=== PATIENT | female | born 1955 | race Caucasian/White ===

== ENCOUNTER → 2017-02-04 | Outpatient (CLI) | payer OTHER ==
--- NOTE | 2017-02-05 16:12 | CR ---
EXAM DATE: 02/04/17 PATIENT'S AGE: 61 Patient: NOLBERTO VELASCO Facility: [place], [place] Site . Site : 1955 Study: XRay Chest [id number] 3:13:56 PM Ordering Physician: Vashti Marks Final Report: INDICATION: Cough TECHNIQUE: Chest 2 views. COMPARISON: June 03, 2015 FINDINGS: Cardiovascular and mediastinum: Heart size and vasculature are normal in caliber and appearance. Mediastinum is within normal limits. Lungs and pleural spaces: Lungs are clear. No sign of infiltrate or mass. No sign of pleural effusion. No pneumothorax. Bones and soft tissues: No significant findings. IMPRESSION: No sign of acute disease. Dictated by Kaylin Sanchez MD @ Feb 04 2017 7:37PM (Electronic Signature) Report Signed by Proxy. [facility]ITALVarghese
== END ==
LOC: MW.CHFP 14:02
PROVIDERS: ATTEND Nurse Practitioner Family
DX: R05 Cough (principal); R11.10 Vomiting, unspecified; E10.9 Type 1 diabetes mellitus without complications; R82.99 Other abnormal findings in urine; J18.9 Pneumonia, unspecified organism; A49.9 Bacterial infection, unspecified
CPT/HCPCS: 36415; 71020; 71020-26; 80048; 81001; 83036; 83605; 85025; 87040

== ENCOUNTER 2017-07-12 10:28 | Observation (INO) | payer OTHER ==
--- NOTE | 2017-07-12 10:50 | EDM.PDOC ---
ED HPI GENERAL MEDICAL PROBLEM - General Chief Complaint: General Stated Complaint: SWELLING,LOW BLOOD SUGAR Time Seen by Provider: 07/12/17 10:45 Source of Information: Reports: Patient, Family History Limitations: Reports: No Limitations - History of Present Illness INITIAL COMMENTS - FREE TEXT/NARRATIVE: HISTORY AND PHYSICAL: []61-year-old female presenting with some weakness shortness of breath her sugars have been up and down. For the last month or 2 she has been experiencing these symptoms. She states she is having vision changes for the last month. She is short of breath on exertion. History of Present Illness: [Patient is known diabetic on Lantus insulin she has hyperlipidemia but has not been taking any medication. For the last provider that she saw was 1 year ago. Selina Kingston NP. Her son brings her to ER. Patient states that she was helping her daughter move last week and fell after missing a single step. Then states that occasionally her left leg wants to drag. ] Surgical history includes and lithotripsy. Patient generally wears glasses and states that her vision has been worsening Denies any fever or chills denies any hematemesis stools denies any dysuria She has had fractures osteoarthritis Reports migraine headaches in the past Review of Systems: As per history of present illness and below otherwise all systems reviewed and negative. Past medical history: As per history of present illness and as reviewed below otherwise noncontributory. Patient denies any difficulty swallowing denies any chest pain she does have shortness of breath on exertion Denies any gastrointestinal symptoms, complains of weakness Does have history of depression reports diabetes mellitus type 1 reports chickenpox/shingles Surgical history: As per history of present illness and as reviewed below otherwise noncontributory. and lithotripsy Social history: No reported history of drug or alcohol abuse. Patient is smoker for 45 years Family history: As per history of present illness and as reviewed below otherwise noncontributory. Lung cancer Heart disease High cholesterol Diseases and stones COPD Physical exam: Patient is alert but does take some time with speaking and thinking of what she is going to say. Answers are appropriate. She is not short of breath with her answers in full sentences . All her symptoms she has have been present for 1-2 months. HEENT: Atraumatic, normocehpalic, pupils reactive, negative for conjunctival pallor or scleral icterus, mucous membranes moist, throat clear, neck supple, nontender, trachea midline. Voice is very raspy . Lungs: Clear to auscultation, breath sounds equal bilaterally, chest non- tender. Heart: S1S2, regular, negative for clicks, rubs, or JVD. Abdomen: Soft, nondistended, nontender. Negative for masses or hepatossplenmegaly. Negative for costovertebral tenderness. Pelvis: Stable nontender. Genitourinary: Deferred. Rectal: Deferred Extremities: Atraumatic, negative for cords or calf pain. 1+ edema noted bilateral ankles extending up shins. Weakness noted with hand grasp with left being slightly less than the right. Weakness to legs with elevating from a laying down position with the left side being weaker than the right side. Neurovascular unremarkable. Neuro: Awake, alert, oriented. Cranial nerves II through XII unremarkable. Cerebellum unremarkable. Motor and sensory unremarkable throughout. Exam nonfocal. Have discussed with the patient and her family at bedside my concerns, and the rest that we have back at this time. Her hemoglobin A1c being 11.4, her sugars on admission over 400. Head CT does not show any bleed fracture or abnormality. She does have some tortuous thoracic aorta moderately calcified mild cardiac enlargement minimal nodularity in the right costophrenic angle this is new and nonspecific there is some new linear atelectasis or scarring to the right lung base lungs otherwise are clear without any infiltrate and tiny nodular density was projected over the left fourth rib which could be an area of sclerosis within this rib appears stable on the x-ray. Discussed with Dr. Mohamud patients weakness. Shows of breath on exertion. Uncontrolled diabetes. He is agreeable to refer for observation. Diagnostics: [Bedside blood sugar, EKG, CBC CMP troponin amylase lipase PT/INR Hgb A1c] Therapeutics: [3 units regular insulin subcutaneous repeat X1. 2 units regular insulin subcutaneous 500 bolus of normal saline then at 125 per hour] Impression: Weakness [Uncontrolled diabetes mellitus type 1 Shortness breath on exertion] Plan: [Refer for observation] Definitive disposition and diagnosis as appropriate pending reevaluation and review of above. head Pain Score (Numeric/FACES): 7 - Related Data Allergies Allergy/AdvReac Type Severity Reaction Status Date / Time No Known Allergies Allergy Verified 07/12/17 10:36 Home Meds: Home Meds Insulin Lispro [HumaLOG] 1 unit SQ ACBED 10/24/14 [History] Insulin Glarg,Human.Rec.Analog [LantUS Solostar] 21 units SUBCUT DAILY 07/12/17 [History] Past Medical History Other HEENT History: uses glasses Other Genitourinary History: Social & Family History - Tobacco Use Smoking Status *Q: Current Every Day Smoker Years of Tobacco use: 45 Used Tobacco, but Quit: No Second Hand Smoke Exposure: Yes - Alcohol Use Days Per Week of Alcohol Use: 0 - Recreational Drug Use Recreational Drug Use: No ED ROS GENERAL - Review of Systems Review Of Systems: ROS reveals no pertinent complaints other than HPI. ED EXAM, GENERAL - Physical Exam Exam: See Below (See dictation) Course - Vital Signs Last Recorded V/S: Last Vital Signs Temp 36.4 C 07/12/17 10:28 Pulse 101 H 07/12/17 10:28 Resp 18 07/12/17 10:28 BP 175/104 H 07/12/17 10:28 Pulse Ox 98 07/12/17 10:28 - Orders/Labs/Meds Orders: Active Orders 24 hr Category Date Time Status Cardiac Monitoring [RC] . DIRECTED Care 07/12/17 10:50 Active EKG Documentation Completion [RC] STAT Care 07/12/17 10:51 Active Oxygen Therapy, ED [RC] ASDIRECTED Care 07/12/17 10:50 Active Chest 1V Frontal [CR] Stat Exams 07/12/17 10:51 Taken Head wo Cont [CT] Stat Exams 07/12/17 11:32 Taken CULTURE BLOOD [BC] Stat Lab 07/12/17 10:59 Received CULTURE BLOOD [BC] Stat Lab 07/12/17 11:18 Results HEPATITIS C AB [REF] Stat Lab 07/12/17 10:59 Received Sodium Chloride 0.9% [Saline Flush] Med 07/12/17 10:51 Active 10 ml FLUSH ASDIRECTED PRN Sodium Chloride 0.9% [Saline Flush] Med 07/12/17 10:51 Active 2.5 ml FLUSH ASDIRECTED PRN Blood Culture x2 Reflex Set [OM.PC] Stat Oth 07/12/17 10:51 Ordered Saline Lock Insert [OM.PC] Stat Oth 07/12/17 10:50 Ordered Medication Orders Sodium Chloride (Saline Flush) 10 ml FLUSH ASDIRECTED PRN PRN Reason: Keep Vein Open Sodium Chloride (Saline Flush) 2.5 ml FLUSH ASDIRECTED PRN PRN Reason: Keep Vein Open Labs: Laboratory Tests 07/12/17 07/12/17 07/12/17 Range/Units 10:49 10:59 10:59 WBC 9.66 (4.0-11.0) K/uL RBC 4.41 (4.30-5.90) M/uL Hgb 14.1 (12.0-16.0) g/dL Hct 41.2 (36.0-46.0) % MCV 93.4 (80.0-98.0) fL MCH 32.0 (27.0-32.0) pg MCHC 34.2 (31.0-37.0) g/dL RDW Std Deviation 47.3 (28.0-62.0) fl RDW Coeff of Nicolasa 14 (11.0-15.0) % Plt Count 338 (150-400) K/uL MPV 9.00 (7.40-12.00) fL Neut % (Auto) 76.2 (48.0-80.0) % Lymph % (Auto) 14.4 L (16.0-40.0) % Preston % (Auto) 7.0 (0.0-15.0) % Eos % (Auto) 1.3 (0.0-7.0) % Baso % (Auto) 1.1 (0.0-1.5) % Neut # (Auto) 7.4 H (1.4-5.7) K/uL Lymph # (Auto) 1.4 (0.6-2.4) K/uL Preston # (Auto) 0.7 (0.0-0.8) K/uL Eos # (Auto) 0.1 (0.0-0.7) K/uL Baso # (Auto) 0.1 (0.0-0.1) K/uL Nucleated RBC % 0.0 /100WBC Nucleated RBCs # 0 K/uL INR 0.98 (0.86-1.11) ABG pH (7.35-7.45) ABG pCO2 (35-45) mmHG ABG pO2 (75-100) mmHG ABG HCO3 (22-26) mEq/L ABG Total CO2 ABG Base Excess (-2.0-2.0) Sodium (136-146) mmol/L Potassium (3.5-5.1) mmol/L Chloride (98-110) mmol/L Carbon Dioxide (21-31) mmol/L BUN (6.0-23.0) mg/dL Creatinine (0.6-1.5) mg/dL Est Cr Clr Drug Dosing mL/min Estimated GFR (MDRD) ml/min Glucose (60-110) mg/dL POC Glucose 377 H (60-110) mg/dL Hemoglobin A1c (0.0-6.0) % Calcium (8.8-10.8) mg/dL Total Bilirubin (0.1-1.5) mg/dL AST (5-40) IU/L ALT (8-54) IU/L Alkaline Phosphatase (40-150) Troponin I (0.0-0.29) NG/ML Total Protein (6.0-8.0) g/dL Albumin (3.4-4.8) g/dL Globulin (2.0-3.5) g/dL Albumin/Globulin Ratio (1.3-2.8) Amylase (10-90) U/L Lipase (7-80) U/L TSH 3rd Generation (0.47-5.0) uIU/mL 07/12/17 07/12/17 07/12/17 Range/Units 10:59 10:59 10:59 WBC (4.0-11.0) K/uL RBC (4.30-5.90) M/uL Hgb (12.0-16.0) g/dL Hct (36.0-46.0) % MCV (80.0-98.0) fL MCH (27.0-32.0) pg MCHC (31.0-37.0) g/dL RDW Std Deviation (28.0-62.0) fl RDW Coeff of Nicolasa (11.0-15.0) % Plt Count (150-400) K/uL MPV (7.40-12.00) fL Neut % (Auto) (48.0-80.0) % Lymph % (Auto) (16.0-40.0) % Preston % (Auto) (0.0-15.0) % Eos % (Auto) (0.0-7.0) % Baso % (Auto) (0.0-1.5) % Neut # (Auto) (1.4-5.7) K/uL Lymph # (Auto) (0.6-2.4) K/uL Preston # (Auto) (0.0-0.8) K/uL Eos # (Auto) (0.0-0.7) K/uL Baso # (Auto) (0.0-0.1) K/uL Nucleated RBC % /100WBC Nucleated RBCs # K/uL INR (0.86-1.11) ABG pH (7.35-7.45) ABG pCO2 (35-45) mmHG ABG pO2 (75-100) mmHG ABG HCO3 (22-26) mEq/L ABG Total CO2 ABG Base Excess (-2.0-2.0) Sodium 136 (136-146) mmol/L Potassium 3.9 (3.5-5.1) mmol/L Chloride 102 (98-110) mmol/L Carbon Dioxide 24 (21-31) mmol/L BUN 20 (6.0-23.0) mg/dL Creatinine 1.3 (0.6-1.5) mg/dL Est Cr Clr Drug Dosing 38.88 mL/min Estimated GFR (MDRD) 41.4 ml/min Glucose 435 H (60-110) mg/dL POC Glucose (60-110) mg/dL Hemoglobin A1c 11.3 H (0.0-6.0) % Calcium 8.7 L (8.8-10.8) mg/dL Total Bilirubin 0.4 (0.1-1.5) mg/dL AST 17 (5-40) IU/L ALT 15 (8-54) IU/L Alkaline Phosphatase 103 (40-150) Troponin I < 0.10 (0.0-0.29) NG/ML Total Protein 6.0 (6.0-8.0) g/dL Albumin 2.4 L (3.4-4.8) g/dL Globulin 3.6 H (2.0-3.5) g/dL Albumin/Globulin Ratio 0.7 L (1.3-2.8) Amylase 46 (10-90) U/L Lipase 11 (7-80) U/L TSH 3rd Generation 2.15 (0.47-5.0) uIU/mL 07/12/17 07/12/17 07/12/17 Range/Units 12:06 12:56 13:15 WBC (4.0-11.0) K/uL RBC (4.30-5.90) M/uL Hgb (12.0-16.0) g/dL Hct (36.0-46.0) % MCV (80.0-98.0) fL MCH (27.0-32.0) pg MCHC (31.0-37.0) g/dL RDW Std Deviation (28.0-62.0) fl RDW Coeff of Nicolasa (11.0-15.0) % Plt Count (150-400) K/uL MPV (7.40-12.00) fL Neut % (Auto) (48.0-80.0) % Lymph % (Auto) (16.0-40.0) % Preston % (Auto) (0.0-15.0) % Eos % (Auto) (0.0-7.0) % Baso % (Auto) (0.0-1.5) % Neut # (Auto) (1.4-5.7) K/uL Lymph # (Auto) (0.6-2.4) K/uL Preston # (Auto) (0.0-0.8) K/uL Eos # (Auto) (0.0-0.7) K/uL Baso # (Auto) (0.0-0.1) K/uL Nucleated RBC % /100WBC Nucleated RBCs # K/uL INR (0.86-1.11) ABG pH 7.430 (7.35-7.45) ABG pCO2 39 (35-45) mmHG ABG pO2 67 L (75-100) mmHG ABG HCO3 26 (22-26) mEq/L ABG Total CO2 23.5 ABG Base Excess 1.7 (-2.0-2.0) Sodium (136-146) mmol/L Potassium (3.5-5.1) mmol/L Chloride (98-110) mmol/L Carbon Dioxide (21-31) mmol/L BUN (6.0-23.0) mg/dL Creatinine (0.6-1.5) mg/dL Est Cr Clr Drug Dosing mL/min Estimated GFR (MDRD) ml/min Glucose (60-110) mg/dL POC Glucose 313 H 287 H (60-110) mg/dL Hemoglobin A1c (0.0-6.0) % Calcium (8.8-10.8) mg/dL Total Bilirubin (0.1-1.5) mg/dL AST (5-40) IU/L ALT (8-54) IU/L Alkaline Phosphatase (40-150) Troponin I (0.0-0.29) NG/ML Total Protein (6.0-8.0) g/dL Albumin (3.4-4.8) g/dL Globulin (2.0-3.5) g/dL Albumin/Globulin Ratio (1.3-2.8) Amylase (10-90) U/L Lipase (7-80) U/L TSH 3rd Generation (0.47-5.0) uIU/mL Meds: Medications Generic Name Dose Route Start Last Admin Trade Name Freq PRN Reason Stop Dose Admin Sodium Chloride 10 ml 07/12/17 10:51 Saline Flush FLUSH ASDIRECTED PRN Keep Vein Open Sodium Chloride 2.5 ml 07/12/17 10:51 Saline Flush FLUSH ASDIRECTED PRN Keep Vein Open Discontinued Medications Generic Name Dose Route Start Last Admin Trade Name Freq PRN Reason Stop Dose Admin Sodium Chloride 1,000 mls @ 999 mls/hr 07/12/17 10:51 07/12/17 11:14 Normal Saline IV 07/12/17 11:51 999 mls/hr STAT ONE Administration Insulin Human Regular 5 unit 07/12/17 11:03 Novolin R SUBCUT 07/12/17 11:04 ONETIME ONE Protocol Insulin Human Regular 3 unit 07/12/17 11:07 07/12/17 11:28 Novolin R SUBCUT 07/12/17 11:08 3 unit ONETIME ONE Administration Protocol Insulin Human Regular 3 unit 07/12/17 12:07 Novolin R SUBCUT 07/12/17 12:08 ONETIME ONE Protocol Insulin Human Regular 3 unit 07/12/17 13:22 Novolin R SUBCUT 07/12/17 13:23 ONETIME ONE Protocol Departure - Departure Time of Disposition: 14:00 Disposition: Home, Self-Care 01 Condition: Good Clinical Impression: Weakness generalized - Discharge Information Referrals: Selina Kingston NP [Primary Care Provider] - Forms: ED Department Discharge - My Orders Last 24 Hours: My Active Orders 07/12/17 10:50 Cardiac Monitoring [RC] . DIRECTED Oxygen Therapy, ED [RC] ASDIRECTED Saline Lock Insert [OM.PC] Stat 07/12/17 10:51 EKG Documentation Completion [RC] STAT Chest 1V Frontal [CR] Stat Sodium Chloride 0.9% [Saline Flush] 10 ml FLUSH ASDIRECTED PRN Sodium Chloride 0.9% [Saline Flush] 2.5 ml FLUSH ASDIRECTED PRN Blood Culture x2 Reflex Set [OM.PC] Stat 07/12/17 10:59 CULTURE BLOOD [BC] Stat HEPATITIS C AB [REF] Stat 07/12/17 11:18 CULTURE BLOOD [BC] Stat 07/12/17 11:32 Head wo Cont [CT] Stat - Assessment/Plan Last 24 Hours: My Active Orders 07/12/17 10:50 Cardiac Monitoring [RC] . DIRECTED Oxygen Therapy, ED [RC] ASDIRECTED Saline Lock Insert [OM.PC] Stat 07/12/17 10:51 EKG Documentation Completion [RC] STAT Chest 1V Frontal [CR] Stat Sodium Chloride 0.9% [Saline Flush] 10 ml FLUSH ASDIRECTED PRN Sodium Chloride 0.9% [Saline Flush] 2.5 ml FLUSH ASDIRECTED PRN Blood Culture x2 Reflex Set [OM.PC] Stat 07/12/17 10:59 CULTURE BLOOD [BC] Stat HEPATITIS C AB [REF] Stat 07/12/17 11:18 CULTURE BLOOD [BC] Stat 07/12/17 11:32 Head wo Cont [CT] Stat
[2017-07-12] MEDS ORDERED: Sodium Chloride 0.9% 2.5 ML Syringe FLUSH PRN (10:51)
[2017-07-12] MEDS ORDERED: Sodium Chloride 0.9% 10 ML Syringe FLUSH PRN (10:51)
[2017-07-12] MEDS ORDERED: Sodium Chloride 0.9% 1,000 ML IV ONE (10:51)
[2017-07-12] MEDS ORDERED: Insulin Regular, Human 100 Units/ML 10 ML Vial SUBCUT ONE ×4 (11:03→13:22)
[2017-07-12] MEDS ORDERED: FLU Vacc QS 2017-18 (6mos UP)/PF 60 MCG/0.5 ML Syringe IM ONE (15:45)
[2017-07-12] MEDS ORDERED: Albuterol/Ipratropium 3.0-0.5 MG/3 ML Neb Soln NEB PRN (16:05)
[2017-07-12] MEDS ORDERED: Ondansetron 4 MG/2 ML SDV IVPUSH PRN (16:05)
[2017-07-12] MEDS ORDERED: 50% Dextrose in Water 50 ML Syringe IVPUSH ONE (16:11)
--- NOTE | 2017-07-12 16:25 | CR ---
EXAM DATE: 07/12/17 PATIENT'S AGE: 61 Patient: NOLBERTO VELASCO Facility: [place], [place] Site . Site : 1955 Study: XRay Chest [id number]/[id number] 11:19:20 AM Ordering Physician: Doctor Kelley Final Report: INDICATION: Pain. Shortness of breath. Technique: AP portable chest x-ray. Comparison: Chest x-ray 02/04/2017. Findings: Tortuous thoracic aorta which is moderately calcified. Mild cardiac enlargement. Minimal nodularity in the right costophrenic angle new and nonspecific. New linear atelectasis or scarring right lung base. Lungs otherwise clear without infiltrate. Tiny nodular density projected over the left 4th rib could be an area of sclerosis within this rib and is stable. Remainder negative without acute disease in chest. Dictated by Louie Lopez MD @ Jul 12 2017 11:26AM (Electronic Signature) Report Signed by Proxy. SHERON
--- NOTE | 2017-07-12 16:26 | CT ---
EXAM DATE: 07/12/17 PATIENT'S AGE: 61 Patient: NOLBERTO VELASCO Facility: [place], [place] Site . Site : 1955 Study: CT Head [id number]/2/2017 12:58:42 PM Ordering Physician: Doctor Kelley Final Report: INDICATION: right leg tingling drags and doesn`t work fell today because of it CT HEAD WITHOUT CONTRAST TECHNIQUE: Multiple axial CT images were performed through the head without intravenous contrast administration. COMPARISON: 06/04/2015. FINDINGS: No acute intracranial hemorrhage is identified. No extra-axial collections are evident and there is no mass effect or midline shift. Ventricles are normal in size and configuration. Brain parenchyma appears normal with unremarkable stallworth-white differentiation. Osseous structures are within normal limits and no fractures are seen. Included portions of the paranasal sinuses and mastoid air cells are normally aerated. IMPRESSION: Normal non-contrast head CT. BARBY LOTT MD [employer] Dictated by: Luis Felipe Lott MD @ 07/12/2017 13:03:51 (Electronic Signature) Report Signed by Proxy. [facility]
[2017-07-12] MEDS ORDERED: Furosemide 40 MG/4 ML VIAL IVPUSH ONE (16:53)
[2017-07-12] MEDS ORDERED: Magnesium Sulfate/Water 4 GM in Premix Bag 1 BAG IV ONE (16:55)
--- NOTE | 2017-07-12 17:29 | PCM.HP ---
H&P History of Present Illness - General Date of Service: 07/12/17 Admit Problem/Dx: Admission Diagnosis/Problem Admission Diagnosis/Problem Weakness Source of Information: Patient, Family History Limitations: Reports: No Limitations - History of Present Illness Initial Comments - Free Text/Narative: This 61 year old female with pmh of DM type 1, HTN, and tobacco use presented to the ED with concerns of worsening generalized weakness, labile blood sugars, and edema to lower legs. She reports this weakness has been around for approximately 2 months and more like generali fatigu. She reports a fall this weekend and her son urged her to be evaluated. She doesn't report significant weakness to one side or not, but family thinks she feels weaker to left, this again as been present for 1-2 months. She has noticed more swelling to her lower legs, and cut back on salt intake and it has improved but she continues to feel very tight to lower legs and the swelling extends to hips and butt. She also reports shortness of breath that has worsened and is especially noticeable upon exertion. She reports she is able to lie flat to sleep. She denies CAD, did have an angiogram many years ago in [place], but denies stents and no dyslipidemia. She has smoked for 45+ years. She has not followed with PCP, in awhile. The last provider she saw was Selina Kingston NP. She reports her BS are labile, reporting highs in 200-300s and lows in the 20-30s. She isn't great at checking her BS but knows when it is low. She takes Humalog with meals and Lantus at bedtime. She denies recent fevers, URI, chronic cough is present along with raspy voice which is her normal. No chest pain or palpitations. NO abdominal pain or urinary symptoms. In the ED WBC 9,660, glucose noted 435, A1c 11.3, Magnesium 1.1, Bun 20, Cr 1.3. TSH 2.15. EKG SR in the 80s. CXR revealed, "tortuous thoracic aorta which is moderately calcified. Mild cardiac enlargement. Minimal nodularity in the right costophrenic angle new and nonspecific. New linear atelectasis or scarring right lung base. Lungs otherwise clear without infiltrate. Tiny nodular density projected over the left 4th rib could be an area of sclerosis within this rib and is stable. Remainder negative without acute disease in chest." Head CT negative. She was treated with NS 500 ml bolus and a total of 9 units Novolin. She will be admitted observation for hyperglycemia, dyspnea, and generalized weakness. Upon arrival to floor, patient reported feeling dizziness lightheaded and like her BS was low. BS noted to be 30 upon checking, patient was lethargis and disoriented. She was given 25 gm of D50 IV push. Patinet became more alert and was able to eat crackers PB and drank some juice. She was able to then finish interview. head Pain Score (Numeric/FACES): 7 - Related Data Allergies/Adverse Reactions: Allergies Allergy/AdvReac Type Severity Reaction Status Date / Time No Known Allergies Allergy Verified 07/12/17 10:36 Home Medications: Home Meds Insulin Lispro [HumaLOG] 1 unit SQ ACBED 10/24/14 [History] Insulin Glarg,Human.Rec.Analog [LantUS Solostar] 21 units SUBCUT DAILY 07/12/17 [History] Past Medical History - Past Health History Medical/Surgical History: Denies Medical/Surgical History HEENT History: Reports: Impaired Vision Other HEENT History: wears eye glasses Cardiovascular History: Reports: Hypertension. Denies: Afib, CAD, Heart Failure , Heart Murmur, High Cholesterol Respiratory History: Reports: SOB. Denies: COPD, Sleep Apnea Gastrointestinal History: Reports: None. Denies: GERD, GI Bleed Genitourinary History: Reports: Renal Calculus. 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: Musculoskeletal History: Reports: Arthritis Neurological History: Reports: Headaches, Chronic, Migraines, Vertigo Psychiatric History: Reports: None Endocrine/Metabolic History: Reports: Diabetes, Type I Other Endocrine/Metabolic History: Diagnosed X 20 years ago Hematologic History: Reports: None Immunologic History: Reports: None Oncologic (Cancer) History: Reports: None Dermatologic History: Reports: None - Infectious Disease History Infectious Disease History: Reports: None - Past Surgical History Head Surgeries/Procedures: Reports: None HEENT Surgical History: Reports: None Cardiovascular Surgical History: Reports: None GI Surgical History: Reports: None Endocrine Surgical History: Reports: None Neurological Surgical History: Reports: None Musculoskeletal Surgical History: Reports: None Social & Family History - Family History Family Medical History: Noncontributory - Tobacco Use Smoking Status *Q: Current Every Day Smoker Years of Tobacco use: 45 Packs/Tins Daily: 0.5 Used Tobacco, but Quit: No Second Hand Smoke Exposure: No - Caffeine Use Caffeine Use: Reports: Coffee, Tea - Alcohol Use Days Per Week of Alcohol Use: 0 - Recreational Drug Use Recreational Drug Use: No Recreational Drug Use Frequency: Rarely - Living Situation & Occupation Living situation: Reports: Alone H&P Review of Systems - Review of Systems: Review Of Systems: See Below General: Reports: Weakness, Fatigue. Denies: Fever, Chills, Malaise HEENT: Reports: No Symptoms. Denies: Hearing Changes, Visual Changes Pulmonary: Reports: Shortness of Breath, Cough (chronic, worse in the morning, clear phlegm.). Denies: Wheezing Cardiovascular: Reports: Dyspnea on Exertion, Edema (bilateral lower legs, extending up to buttock). Denies: Chest Pain, Palpitations, Orthopnea Gastrointestinal: Reports: No Symptoms. Denies: Abdominal Pain, Black Stool, Bloody Stool, Nausea, Vomiting Genitourinary: Reports: No Symptoms. Denies: Dysuria, Frequency, Burning Musculoskeletal: Reports: No Symptoms. Denies: Neck Pain Skin: Reports: No Symptoms. Denies: Erythema Neurological: Reports: No Symptoms. Denies: Confusion, Syncope, Difficulty Walking Hematologic/Lymphatic: Reports: No Symptoms Immunologic: Reports: No Symptoms Exam - Exam Exam: See Below - Vital Signs Vital Signs: Last Vital Signs Temp 98.1 F 07/12/17 16:05 Pulse 90 07/12/17 16:05 Resp 20 07/12/17 16:05 BP 178/68 H 07/12/17 16:05 Pulse Ox 97 07/12/17 16:05 Weight: 55.6 kg - Exam Quality Assessment: No: Supplemental Oxygen General: Alert, Oriented, Cooperative HEENT: Conjunctiva Clear, Hearing Intact, Mucosa Moist & [place], Posterior Pharynx Clear, Pupils Reactive Neck: Supple, Trachea Midline. No: JVD Lungs: Clear to Auscultation, Normal Respiratory Effort Cardiovascular: Regular Rate, Regular Rhythm, Normal S1, Normal S2 GI/Abdominal Exam: Normal Bowel Sounds, Soft, Non-Tender, No Organomegaly, No Distention, No Abnormal Bruit, No Mass, Pelvis Stable Extremities: Normal Range of Motion, Non-Tender, Normal Capillary Refill, Pedal Edema (edema R>L, + 1 pitting to LLE and +2 pitting to RLE, both extending to hips and buttocks lessening in severity ). No: Redness Neurological: Cranial Nerves Intact, Reflexes Equal Bilateral Neuro Extensive - Mental Status: Alert, Oriented x3, Normal Mood/Affect, Normal Cognition, Memory Intact Psychiatric: Alert, Normal Affect, Normal Mood - Patient Data Lab Results Last 24 hrs: Laboratory Results - last 24 hr 07/12/17 Range/Units 15:58 POC Glucose 30 L (60-110) mg/dL Result Diagrams: 07/12/17 10:59 07/12/17 10:59 *Q Meaningful Use (ADM) - VTE *Q VTE Criteria *Q: - VTE Risk Assess *Q Each Risk Factor Represents 1 Point: Abnormal Pulmonary Function (COPD) Total Score 1 Point Risk Factors: 1 Each Risk Factor Represents 2 Points: Age 60 - 74 Years Total Score 2 Point Risk Factors: 2 Each Risk Factor Represents 3 Points: None Total Score 3 Point Risk Factors: 0 Each Risk Factor Represents 5 Points: None Total Score 5 Point Risk Factors: 0 Venous Thromboembolism Risk Factor Score *Q: 3 - Stroke *Q Stroke Criteria *Q: - AMI *Q AMI Criteria *Q: - Problem List (1) Dyspnea SNOMED Code(s): 090866859 ICD Code: R06.00 - DYSPNEA, UNSPECIFIED Status: Acute Current Visit: Yes Qualifiers: Dyspnea type: dyspnea on exertion Qualified Code(s): R06.09 - Other forms of dyspnea (2) Labile blood glucose SNOMED Code(s): 723283649 ICD Code: R73.09 - OTHER ABNORMAL GLUCOSE Status: Acute Current Visit: Yes (3) Lower extremity edema SNOMED Code(s): 846670382 ICD Code: R60.0 - LOCALIZED EDEMA Status: Acute Current Visit: Yes (4) Weakness generalized SNOMED Code(s): 89834617 ICD Code: R53.1 - WEAKNESS Status: Acute Current Visit: Yes (5) DM type 1 (diabetes mellitus, type 1) SNOMED Code(s): 24991747 ICD Code: E10.9 - TYPE 1 DIABETES MELLITUS WITHOUT COMPLICATIONS Status: Chronic Current Visit: Yes Qualifiers: Diabetes mellitus complication status: with hyperglycemia Qualified Code(s) : E10.65 - Type 1 diabetes mellitus with hyperglycemia (6) Smoker SNOMED Code(s): 02222805 ICD Code: F17.200 - NICOTINE DEPENDENCE, UNSPECIFIED, UNCOMPLICATED Status : Chronic Current Visit: Yes Problem List Initiated/Reviewed/Updated: Yes Orders Last 24hrs: Active Orders 24 hr Category Date Time Status Intake and Output [RC] Q12H Care 07/12/17 16:06 Active Oxygen Therapy [RC] PRN Care 07/12/17 16:05 Active RT Aerosol Therapy [RC] ASDIRECTED Care 07/12/17 16:07 Active Telemetry Monitoring [Cardiac Monitoring] [RC] . Care 07/12/17 17:21 Active DIRECTED Up With Assistance [RC] ASDIRECTED Care 07/12/17 16:05 Active VTE/DVT Education [RC] PER UNIT ROUTINE Care 07/12/17 16:05 Active Vital Signs [RC] Q4H Care 07/12/17 16:05 Active PT Evaluation and Treatment [CONS] Routine Cons 07/12/17 16:05 Active [place] [employer] Diet [DIET] Diet 07/12/17 Dinner Active Echo Comp wo Cont [US] Urgent Exams 07/12/17 16:53 Ordered B-TYPE NATRIURETIC PEPTIDE,BNP [CHEM] Routine Lab 07/12/17 17:13 Ordered BASIC METABOLIC PANEL,BMP [CHEM] AM Lab 07/13/17 05:11 Ordered CBC WITH AUTO DIFF [HEME] AM Lab 07/13/17 05:11 Ordered Acetaminophen [Tylenol] Med 07/12/17 16:05 Active 650 mg PO Q4H PRN Albuterol/Ipratropium [DuoNeb 3.0-0.5 MG/3 ML] Med 07/12/17 16:05 Active 3 ml NEB Q4HRRT PRN Magnesium Sulfate/Water [Magnesium Sulfate 4 GM in Med 07/12/17 16:55 Active Water 100 ML] 4 gm Premix Bag 1 bag IV ONETIME Ondansetron [Zofran] Med 07/12/17 16:05 Active 4 mg IVPUSH Q4H PRN Resuscitation Status Routine Resus Stat 07/12/17 16:05 Ordered Medication Orders Acetaminophen (Tylenol) 650 mg PO Q4H PRN PRN Reason: Pain Albuterol/Ipratropium (Duoneb 3.0-0.5 Mg/3 Ml) 3 ml NEB Q4HRRT PRN PRN Reason: Shortness Of Breath/wheezing Magnesium Sulfate 4 gm/ Premix 100 mls @ 50 mls/hr IV ONETIME ONE Stop: 07/12/17 18:54 Ondansetron HCl (Zofran) 4 mg IVPUSH Q4H PRN PRN Reason: Nausea Sodium Chloride (Saline Flush) 10 ml FLUSH ASDIRECTED PRN PRN Reason: Keep Vein Open Sodium Chloride (Saline Flush) 2.5 ml FLUSH ASDIRECTED PRN PRN Reason: Keep Vein Open Assessment/Plan Comment:: This 61 year old female admitted with dyspnea, labile blood glucose and generalized weakness 1. Dyspnea/lower leg edema: BNP slightly elevated, 266. No hx of heart failure. Will give small dose of Lasix tonight and monitor I/O and dyspnea. Will obtain ECHO and monitor on telemetry for arrhythmia. Low sodium diet stressed for here and when discharged home. 2. Labile BS: BS improved. WIll monitor overnight and allow to run higher, mid 200s due to hypoglycemia post insulin administration in ED. Will consult DM educator in am. 3. Generalized weakness: consult PT. Head CT negative. No focal deficits. May be related to BLE edema. 4. HTN: Monitor after Lasix, may need more control. Is not currently taking BP medication. She reports this is very labile as well. 5. Hypomagnesemia: Replace with 4 gm IV, monitor in am. VTE prophylaxis: Lovenox. Dispo: 1-2 days pending improvement and evaluation
[2017-07-12] MEDS: Acetaminophen 325 MG Tab PO PRN (20:36)
[2017-07-12] MEDS: Enoxaparin 40 MG/0.4 ML Syringe SUBCUT SCH (20:36)
--- NOTE | 2017-07-13 07:34 | PCM.PN ---
- General Info Date of Service: 07/13/17 Admission Dx/Problem (Free Text): Admission Diagnosis/Problem Admission Diagnosis/Problem Weakness Subjective Update: Feeling somewhat better today. Has been up to bathroom, no significant dyspnea noted, but "I haven't done much" The overall achiness has improved and she feels the swelling is going down to her legs. She denies chest pain or abdominal pain. She reports this morning that at home she sometimes needs 2 pillows to prop herself up with and other times she doesn't. Reports she was at one time on inhalers as well, but when her was sick "I cared more about his medications and kind of forgot about myself." "I'm just now remembering all of this." No further hypoglycemia overnight. Functional Status: Reports: Pain Controlled, Tolerating Diet, Ambulating, Urinating - Review of Systems General: Reports: Fatigue. Denies: Fever HEENT: Reports: No Symptoms. Denies: Headaches, Sore Throat, Visual Changes Pulmonary: Reports: Shortness of Breath (scant), Cough (chronic) Cardiovascular: Reports: Dyspnea on Exertion, Edema (improved.). Denies: Chest Pain, Palpitations Gastrointestinal: Reports: No Symptoms. Denies: Abdominal Pain, Nausea, Vomiting Neurological: Reports: No Symptoms Psychiatric: Reports: No Symptoms - Patient Data Vitals - Most Recent: Last Vital Signs Temp 98.8 F 07/13/17 04:59 Pulse 80 07/13/17 04:59 Resp 16 07/13/17 04:59 BP 165/85 H 07/13/17 04:59 Pulse Ox 97 07/13/17 04:59 Weight - Most Recent: 55.6 kg I&O - Last 24 Hours: Intake & Output 07/12/17 07/13/17 07/13/17 22:59 06:59 14:59 Intake Total 520 650 Output Total 0 950 Balance 520 -300 Lab Results Last 24 Hours: Laboratory Results - last 24 hr 07/12/17 07/12/17 07/12/17 Range/Units 15:58 16:47 17:44 WBC (4.0-11.0) K/uL RBC (4.30-5.90) M/uL Hgb (12.0-16.0) g/dL Hct (36.0-46.0) % MCV (80.0-98.0) fL MCH (27.0-32.0) pg MCHC (31.0-37.0) g/dL RDW Std Deviation (28.0-62.0) fl RDW Coeff of Nicolasa (11.0-15.0) % Plt Count (150-400) K/uL MPV (7.40-12.00) fL Neut % (Auto) (48.0-80.0) % Lymph % (Auto) (16.0-40.0) % [place] % (Auto) (0.0-15.0) % Eos % (Auto) (0.0-7.0) % Baso % (Auto) (0.0-1.5) % Neut # (Auto) (1.4-5.7) K/uL Lymph # (Auto) (0.6-2.4) K/uL [place] # (Auto) (0.0-0.8) K/uL Eos # (Auto) (0.0-0.7) K/uL Baso # (Auto) (0.0-0.1) K/uL Nucleated RBC % /100WBC Nucleated RBCs # K/uL Sodium (136-146) mmol/L Potassium (3.5-5.1) mmol/L Chloride (98-110) mmol/L Carbon Dioxide (21-31) mmol/L BUN (6.0-23.0) mg/dL Creatinine (0.6-1.5) mg/dL Est Cr Clr Drug Dosing mL/min Estimated GFR (MDRD) ml/min Glucose (60-110) mg/dL POC Glucose 30 L 89 65 (60-110) mg/dL Calcium (8.8-10.8) mg/dL Magnesium (1.5-2.3) mEq/L 07/12/17 07/12/17 07/13/17 Range/Units 19:11 21:02 04:47 WBC 8.10 (4.0-11.0) K/uL RBC 3.89 L (4.30-5.90) M/uL Hgb 12.1 (12.0-16.0) g/dL Hct 36.2 (36.0-46.0) % MCV 93.1 (80.0-98.0) fL MCH 31.1 (27.0-32.0) pg MCHC 33.4 (31.0-37.0) g/dL RDW Std Deviation 46.7 (28.0-62.0) fl RDW Coeff of Nicolasa 14 (11.0-15.0) % Plt Count 318 (150-400) K/uL MPV 8.90 (7.40-12.00) fL Neut % (Auto) 55.2 (48.0-80.0) % Lymph % (Auto) 29.3 (16.0-40.0) % [place] % (Auto) 10.9 (0.0-15.0) % Eos % (Auto) 3.5 (0.0-7.0) % Baso % (Auto) 1.1 (0.0-1.5) % Neut # (Auto) 4.5 (1.4-5.7) K/uL Lymph # (Auto) 2.4 (0.6-2.4) K/uL [place] # (Auto) 0.9 H (0.0-0.8) K/uL Eos # (Auto) 0.3 (0.0-0.7) K/uL Baso # (Auto) 0.1 (0.0-0.1) K/uL Nucleated RBC % 0.0 /100WBC Nucleated RBCs # 0 K/uL Sodium (136-146) mmol/L Potassium (3.5-5.1) mmol/L Chloride (98-110) mmol/L Carbon Dioxide (21-31) mmol/L BUN (6.0-23.0) mg/dL Creatinine (0.6-1.5) mg/dL Est Cr Clr Drug Dosing mL/min Estimated GFR (MDRD) ml/min Glucose (60-110) mg/dL POC Glucose 167 H 218 H (60-110) mg/dL Calcium (8.8-10.8) mg/dL Magnesium (1.5-2.3) mEq/L 07/13/17 07/13/17 07/13/17 Range/Units 04:47 04:47 06:01 WBC (4.0-11.0) K/uL RBC (4.30-5.90) M/uL Hgb (12.0-16.0) g/dL Hct (36.0-46.0) % MCV (80.0-98.0) fL MCH (27.0-32.0) pg MCHC (31.0-37.0) g/dL RDW Std Deviation (28.0-62.0) fl RDW Coeff of Nicolasa (11.0-15.0) % Plt Count (150-400) K/uL MPV (7.40-12.00) fL Neut % (Auto) (48.0-80.0) % Lymph % (Auto) (16.0-40.0) % [place] % (Auto) (0.0-15.0) % Eos % (Auto) (0.0-7.0) % Baso % (Auto) (0.0-1.5) % Neut # (Auto) (1.4-5.7) K/uL Lymph # (Auto) (0.6-2.4) K/uL [place] # (Auto) (0.0-0.8) K/uL Eos # (Auto) (0.0-0.7) K/uL Baso # (Auto) (0.0-0.1) K/uL Nucleated RBC % /100WBC Nucleated RBCs # K/uL Sodium 139 (136-146) mmol/L Potassium 3.8 (3.5-5.1) mmol/L Chloride 107 (98-110) mmol/L Carbon Dioxide 26 (21-31) mmol/L BUN 22 (6.0-23.0) mg/dL Creatinine 1.0 (0.6-1.5) mg/dL Est Cr Clr Drug Dosing 50.54 mL/min Estimated GFR (MDRD) 56.0 ml/min Glucose 166 H (60-110) mg/dL POC Glucose 152 H (60-110) mg/dL Calcium 8.1 L (8.8-10.8) mg/dL Magnesium 1.7 (1.5-2.3) mEq/L Med Orders - Current: Current Medications Acetaminophen (Tylenol) 650 mg PO Q4H PRN PRN Reason: Pain Last Admin: 07/12/17 20:36 Dose: 650 mg Albuterol/Ipratropium (Duoneb 3.0-0.5 Mg/3 Ml) 3 ml NEB Q4HRRT PRN PRN Reason: Shortness Of Breath/wheezing Enoxaparin Sodium (Lovenox) 40 mg SUBCUT Q24H RA Last Admin: 07/12/17 20:36 Dose: 40 mg Ondansetron HCl (Zofran) 4 mg IVPUSH Q4H PRN PRN Reason: Nausea Sodium Chloride (Saline Flush) 10 ml FLUSH ASDIRECTED PRN PRN Reason: Keep Vein Open Sodium Chloride (Saline Flush) 2.5 ml FLUSH ASDIRECTED PRN PRN Reason: Keep Vein Open Discontinued Medications Dextrose/Water (Dextrose 50% In Water) 25 ml IVPUSH ONETIME ONE Stop: 07/12/17 16:12 Last Admin: 07/12/17 16:20 Dose: 25 ml Furosemide (Lasix) 20 mg IVPUSH NOW ONE Stop: 07/12/17 16:54 Last Admin: 07/12/17 17:35 Dose: 20 mg Sodium Chloride (Normal Saline) 1,000 mls @ 999 mls/hr IV STAT ONE Stop: 07/12/17 11:51 Last Infusion: 07/12/17 11:45 Dose: 125 mls/hr Magnesium Sulfate 4 gm/ Premix 100 mls @ 50 mls/hr IV ONETIME ONE Stop: 07/12/17 18:54 Last Admin: 07/12/17 17:41 Dose: 50 mls/hr Insulin Human Regular (Novolin R) 5 unit SUBCUT ONETIME ONE PRN Reason: Protocol Stop: 07/12/17 11:04 Last Admin: 07/12/17 13:54 Dose: Not Given Insulin Human Regular (Novolin R) 3 unit SUBCUT ONETIME ONE PRN Reason: Protocol Stop: 07/12/17 11:08 Last Admin: 07/12/17 11:28 Dose: 3 unit Insulin Human Regular (Novolin R) 3 unit SUBCUT ONETIME ONE PRN Reason: Protocol Stop: 07/12/17 12:08 Last Admin: 07/12/17 12:15 Dose: 3 units Insulin Human Regular (Novolin R) 3 unit SUBCUT ONETIME ONE PRN Reason: Protocol Stop: 07/12/17 13:23 Last Admin: 07/12/17 14:00 Dose: 3 units - Exam Quality Assessment: DVT Prophylaxis General: Alert, Oriented, Cooperative, No Acute Distress HEENT: Pupils Equal, Pupils Reactive, EOMI, Mucous Membr. Moist/[place] Neck: Supple, No JVD Lungs: Clear to Auscultation, Normal Respiratory Effort Cardiovascular: Regular Rate, Regular Rhythm, No Murmurs Extremities: Normal Range of Motion, Non-Tender, Normal Capillary Refill, Pedal Edema (edema noted, improved slightly to lower legs, +1 to trace pitting to thighs and buttock. She reports this is much better.) Neurological: No New Focal Deficit Psy/Mental Status: Alert, Normal Affect, Normal Mood - Problem List & Annotations (1) Dyspnea SNOMED Code(s): 164077764 Code(s): R06.00 - DYSPNEA, UNSPECIFIED Status: Acute Current Visit: Yes Qualifiers: Dyspnea type: dyspnea on exertion Qualified Code(s): R06.09 - Other forms of dyspnea (2) Labile blood glucose SNOMED Code(s): 513924682 Code(s): R73.09 - OTHER ABNORMAL GLUCOSE Status: Acute Current Visit: Yes (3) Lower extremity edema SNOMED Code(s): 780823405 Code(s): R60.0 - LOCALIZED EDEMA Status: Acute Current Visit: Yes (4) Weakness generalized SNOMED Code(s): 55679873 Code(s): R53.1 - WEAKNESS Status: Acute Current Visit: Yes (5) DM type 1 (diabetes mellitus, type 1) SNOMED Code(s): 38017908 Code(s): E10.9 - TYPE 1 DIABETES MELLITUS WITHOUT COMPLICATIONS Status: Chronic Current Visit: Yes Qualifiers: Diabetes mellitus complication status: with hyperglycemia Qualified Code(s) : E10.65 - Type 1 diabetes mellitus with hyperglycemia (6) Smoker SNOMED Code(s): 09389973 Code(s): F17.200 - NICOTINE DEPENDENCE, UNSPECIFIED, UNCOMPLICATED Status: Chronic Current Visit: Yes - Problem List Review Problem List Initiated/Reviewed/Updated: Yes - My Orders Last 24 Hours: My Active Orders 07/12/17 16:05 Oxygen Therapy [RC] PRN Up With Assistance [RC] ASDIRECTED VTE/DVT Education [RC] PER UNIT ROUTINE Vital Signs [RC] Q4H PT Evaluation and Treatment [CONS] Routine Acetaminophen [Tylenol] 650 mg PO Q4H PRN Albuterol/Ipratropium [DuoNeb 3.0-0.5 MG/3 ML] 3 ml NEB Q4HRRT PRN Ondansetron [Zofran] 4 mg IVPUSH Q4H PRN Resuscitation Status Routine 07/12/17 16:07 RT Aerosol Therapy [RC] ASDIRECTED 07/12/17 16:53 Echo Comp wo Cont [US] Urgent 07/12/17 17:21 Telemetry Monitoring [Cardiac Monitoring] [RC] . DIRECTED 07/12/17 17:32 Consult to DM [Consult to Diabetic Nurse Specialist] [CONS] Routine 07/12/17 18:58 Intake and Output Strict [RC] Q12H 07/12/17 19:27 Daily Weight [Height and Weight] [RC] DAILY 07/12/17 19:28 Blood Glucose Check, Bedside [RC] QIDACANDBED 07/12/17 20:00 Enoxaparin [Lovenox] 40 mg SUBCUT Q24H 07/12/17 Dinner [employer] Diet [DIET] - Plan Plan:: This 61 year old female admitted with dyspnea, labile blood glucose and generalized weakness 1. Dyspnea/lower leg edema: Dyspnea slightly improved along with edema. ECHO pending Overnight, telemetry SR, no arrhythmia. Low sodium diet stressed for here and when discharged home. Also discussed possibility of COPD, does recall she used to be on inhalers, but doesnt use them anymore. Does not recall ever having a PFT, but not sure. 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 2. Labile BS: BS improved, no further hypoglycemia. Very labile, BS 150-180 overnight. No insulin ordered at this time. Will consult DM educator in am. Patient and family asking about insulin pump possibilities, encouraged to speak with DM educator. 3. Generalized weakness:reports feeling less achey. consult PT for evaluation. Head CT negative. No focal deficits. May be related to BLE edema. 4. HTN: stable, 160/80. Will start Lisinopril 10 mg daily and monitor. 5. Hypomagnesemia: 1.7 this morning. improved after IV supplementation. VTE prophylaxis: Lovenox. Dispo: 1-2 days pending improvement and evaluation
[2017-07-13] MEDS: Acetaminophen 325 MG Tab PO PRN (08:50)
[2017-07-13] MEDS ORDERED: Furosemide 20 MG/2 ML VIAL IVPUSH ONE (09:30)
[2017-07-13] MEDS: Lisinopril 10 MG Tab PO SCH (11:45)
[2017-07-13] MEDS: Insulin Aspart 100 Units/ML 3 ML Pen SUBCUT SCH ×3 (12:37→23:55)
[2017-07-13] MEDS: Enoxaparin 40 MG/0.4 ML Syringe SUBCUT SCH (20:08)
[2017-07-14] MEDS: Insulin Aspart 100 Units/ML 3 ML Pen SUBCUT SCH ×2 (07:50→11:54)
[2017-07-14] MEDS ORDERED: Magnesium Sulfate/Water 4 GM in Premix Bag 1 BAG IV ONE (07:56)
[2017-07-14] MEDS: Lisinopril 10 MG Tab PO SCH (08:41)
[2017-07-14] MEDS ORDERED: Insulin Glargine,Human Rec. Analog 100 Units/ML 3 ML Pen SUBCUT SCH (09:00)
[2017-07-14] MEDS ORDERED: FLU Vacc QS 2017-18 (36mos UP)/PF 60 MCG/0.5 ML Syringe IM SCH (12:01)
--- NOTE | 2017-07-14 12:01 | PCM.DCSUM1 ---
Discharge Summary - Hospital Course Brief History: This 61 year old female with pmh of DM type 1, HTN, and tobacco use presented to the ED with concerns of worsening generalized weakness, labile blood sugars, and edema to lower legs. She reports this weakness has been around for approximately 2 months and more like generali fatigu. She reports a fall this weekend and her son urged her to be evaluated. She doesn't report significant weakness to one side or not, but family thinks she feels weaker to left, this again as been present for 1-2 months. She has noticed more swelling to her lower legs, and cut back on salt intake and it has improved but she continues to feel very tight to lower legs and the swelling extends to hips and butt. She also reports shortness of breath that has worsened and is especially noticeable upon exertion. She reports she is able to lie flat to sleep. She denies CAD, did have an angiogram many years ago in [place], but denies stents and no dyslipidemia. She has smoked for 45+ years. She has not followed with PCP , in awhile. The last provider she saw was Selina Kingston NP. She reports her BS are labile, reporting highs in 200-300s and lows in the 20-30s. She isn't great at checking her BS but knows when it is low. She takes Humalog with meals and Lantus at bedtime. She denies recent fevers, URI, chronic cough is present along with raspy voice which is her normal. No chest pain or palpitations. NO abdominal pain or urinary symptoms. In the ED WBC 9,660, glucose noted 435, A1c 11.3, Magnesium 1.1, Bun 20, Cr 1.3. TSH 2.15. EKG SR in the 80s. CXR revealed, "tortuous thoracic aorta which is moderately calcified. Mild cardiac enlargement. Minimal nodularity in the right costophrenic angle new and nonspecific. New linear atelectasis or scarring right lung base. Lungs otherwise clear without infiltrate. Tiny nodular density projected over the left 4th rib could be an area of sclerosis within this rib and is stable. Remainder negative without acute disease in chest." Head CT negative. She was treated with NS 500 ml bolus and a total of 9 units Novolin. She will be admitted observation for hyperglycemia, dyspnea, and generalized weakness. Upon arrival to floor for admission, patient reported feeling dizziness lightheaded and like her BS was low. BS noted to be 30 upon checking, patient was lethargis and disoriented. She was given 25 gm of D50 IV push. Patient became more alert and was able to eat crackers with PB and drank some juice. She was able to then finish interview. - Discharge Data Discharge Date: 07/14/17 Discharge Disposition: Home, Self-Care 01 Condition: Good - Discharge Diagnosis/Problem(s) (1) Dyspnea SNOMED Code(s): 260400383 ICD Code: R06.00 - DYSPNEA, UNSPECIFIED Status: Acute Qualifiers: Dyspnea type: dyspnea on exertion Qualified Code(s): R06.09 - Other forms of dyspnea (2) Labile blood glucose SNOMED Code(s): 045863435 ICD Code: R73.09 - OTHER ABNORMAL GLUCOSE Status: Acute (3) Lower extremity edema SNOMED Code(s): 317208628 ICD Code: R60.0 - LOCALIZED EDEMA Status: Acute (4) Weakness generalized SNOMED Code(s): 94591596 ICD Code: R53.1 - WEAKNESS Status: Acute (5) DM type 1 (diabetes mellitus, type 1) SNOMED Code(s): 95205163 ICD Code: E10.9 - TYPE 1 DIABETES MELLITUS WITHOUT COMPLICATIONS Status: Chronic Qualifiers: Diabetes mellitus complication status: with hyperglycemia Qualified Code(s) : E10.65 - Type 1 diabetes mellitus with hyperglycemia (6) Smoker SNOMED Code(s): 70309908 ICD Code: F17.200 - NICOTINE DEPENDENCE, UNSPECIFIED, UNCOMPLICATED Status : Chronic - Patient Summary/Data Consults: Consultations 07/12/17 16:05 PT Evaluation and Treatment [CONS] Routine 07/12/17 17:32 Consult to DM [Consult to Diabetic Nurse Specialist] [CONS] Routine - Patient Instructions Diet: Heart Healthy Diet, Low Sodium, Diabetic Diet Activity: As Tolerated Showering/Bathing: February Shower Notify Provider of: Fever, Increased Pain, Swelling and Redness, Drainage, Nausea and/or Vomiting - Discharge Plan Prescriptions/Med Rec: Lisinopril [Prinivil] 10 mg PO DAILY #30 tablet Home Medications: Home Meds Insulin Lispro [HumaLOG] 1 unit SQ ACBED 10/24/14 [History] Aspirin [Ecotrin] 325 mg PO DAILY 07/13/17 [History] Insulin Glarg,Human.Rec.Analog [LantUS Solostar] 15 units SUBCUT DAILY pen 01/25 [Rx] Lisinopril [Prinivil] 10 mg PO DAILY #30 tablet 07/14/17 [Rx] Patient Handouts: Weakness, [id number], Type 1 Diabetes Mellitus, Adult, Lisinopril tablets Referrals: Dorothy Shelton RN [Registered Nurse] - 07/20/17 1:00 pm Selina Kingston NP [Primary Care Provider] - 08/04/17 8:15 am () - Discharge Summary/Plan Comment DC Time >30 min.: No Discharge Summary/Plan Comment: Discharge Diagnoses; Weakness,generalized BLE edema Type 1 DM- labile BS, uncontrolled Elevated R ventricular pressure HTN Bell was admitted and treated for generalized weakness, labile BS and BLE edema. She reports the edema had improved greatly, but it persists and has noticed her legs are weaker than normal. ECHO was completed which showed normal LV EF, 55-60%. She was treated with 2 doses of Lasix 20 mg IV, which did improve edema. She was encouraged to lower her salt intake, which her and family reports can be quite a lot at times. She was also encouraged to wear compression stockings during the day and remove them at bedtime to help with edema. She was noted to have HTN, BP 170-180 SBP. She was given Lisinopril 10 mg with lowering of BP to 150/80s. She reports BP at times can be labile. During her admission, we consulted DM educator due to very labile BS at home. Joselyn Rush recommended lowering Lantus dosing to 15 units and adjusting her dosing of Humalog to 1:50 ratio with goal of BS 140 and 1:20 carb ratios. She also was encouraged to test more regularly to monitor her BS not just go on feelings. She would like to explore starting on an insulin pump, which diabetic education will assist her in. We discussed further results of her ECHO, with elevated R ventricular pressures, this may be from COPD and possibility of sleep apnea. I would recommend PFTs and outpatient sleep study to further evaluation of these. She will be discharged home today. Dyspnea has improved and weakness has improved with more ambulation decrease in edema. No Lasix will be prescribed at this time, would recommend better control of BP and lowering salt intake at first. BS remain slightly elevated, 200-400s, but with a plan to monitor more closely working to have better control, A1c was 11.3. She will be given prescription for Lisinopril and follow ups arranged with Selina Kingston [employer], PCP and DM educator in 1 week. She is to return to ED or clinic if concerns were to arise. She was also highly encouraged to quit smoking, but declined help with that at this time. - General Info Date of Service: 07/14/17 Admission Dx/Problem (Free Text: Admission Diagnosis/Problem Admission Diagnosis/Problem Weakness Subjective Update: Doing a lot better today. Has no complaints of dyspenia or chest pain. Edema is much improved. She is requesting discharge home today. Functional Status: Reports: Pain Controlled, Tolerating Diet, Ambulating, Urinating - Review of Systems General: Reports: No Symptoms. Denies: Fever Pulmonary: Reports: No Symptoms, Cough (chronic). Denies: Shortness of Breath Cardiovascular: Reports: No Symptoms, Edema (scant amount remains.). Denies: Chest Pain, Palpitations Gastrointestinal: Reports: No Symptoms Genitourinary: Reports: No Symptoms - Patient Data Vitals - Most Recent: Last Vital Signs Temp 97.4 F 07/14/17 08:00 Pulse 93 07/14/17 08:00 Resp 18 07/14/17 08:00 BP 138/86 07/14/17 08:41 Pulse Ox 92 L 07/14/17 08:00 Weight - Most Recent: 56.7 kg I&O - Last 24 hours: Intake & Output 07/13/17 07/14/17 07/14/17 22:59 06:59 14:59 Intake Total 668 300 Output Total 1725 600 Balance -1057 -300 Lab Results - Last 24 hrs: Laboratory Results - last 24 hr 07/13/17 07/13/17 07/14/17 Range/Units 16:32 21:17 04:42 Sodium 135 L (136-146) mmol/L Potassium 4.1 (3.5-5.1) mmol/L Chloride 103 (98-110) mmol/L Carbon Dioxide 26 (21-31) mmol/L BUN 23 (6.0-23.0) mg/dL Creatinine 1.1 (0.6-1.5) mg/dL Est Cr Clr Drug Dosing 46.86 mL/min Estimated GFR (MDRD) 50.2 ml/min Glucose 405 H (60-110) mg/dL POC Glucose 371 H 343 H (60-110) mg/dL Calcium 8.1 L (8.8-10.8) mg/dL Magnesium 1.2 L (1.5-2.3) mEq/L 07/14/17 07/14/17 Range/Units 06:50 11:42 Sodium (136-146) mmol/L Potassium (3.5-5.1) mmol/L Chloride (98-110) mmol/L Carbon Dioxide (21-31) mmol/L BUN (6.0-23.0) mg/dL Creatinine (0.6-1.5) mg/dL Est Cr Clr Drug Dosing mL/min Estimated GFR (MDRD) ml/min Glucose (60-110) mg/dL POC Glucose 350 H 406 H (60-110) mg/dL Calcium (8.8-10.8) mg/dL Magnesium (1.5-2.3) mEq/L Med Orders - Current: Current Medications Acetaminophen (Tylenol) 650 mg PO Q4H PRN PRN Reason: Pain Last Admin: 07/13/17 08:50 Dose: 650 mg Albuterol/Ipratropium (Duoneb 3.0-0.5 Mg/3 Ml) 3 ml NEB Q4HRRT PRN PRN Reason: Shortness Of Breath/wheezing Enoxaparin Sodium (Lovenox) 40 mg SUBCUT Q24H [facility] Last Admin: 07/13/17 20:08 Dose: 40 mg Insulin Aspart (Novolog) 0 unit SUBCUT ACBED [facility] PRN Reason: Protocol Last Admin: 07/14/17 11:54 Dose: Not Given Insulin Glargine (Lantus Solostar) 15 units SUBCUT DAILY [facility] Last Admin: 07/14/17 08:41 Dose: 15 units Lisinopril (Prinivil) 10 mg PO DAILY [facility] Last Admin: 07/14/17 08:41 Dose: 10 mg Ondansetron HCl (Zofran) 4 mg IVPUSH Q4H PRN PRN Reason: Nausea Sodium Chloride (Saline Flush) 10 ml FLUSH ASDIRECTED PRN PRN Reason: Keep Vein Open Sodium Chloride (Saline Flush) 2.5 ml FLUSH ASDIRECTED PRN PRN Reason: Keep Vein Open Discontinued Medications Dextrose/Water (Dextrose 50% In Water) 25 ml IVPUSH ONETIME ONE Stop: 07/12/17 16:12 Last Admin: 07/12/17 16:20 Dose: 25 ml Furosemide (Lasix) 20 mg IVPUSH NOW ONE Stop: 07/12/17 16:54 Last Admin: 07/12/17 17:35 Dose: 20 mg Furosemide (Lasix) 20 mg IVPUSH NOW ONE Stop: 07/13/17 09:31 Last Admin: 07/13/17 10:30 Dose: 20 mg Sodium Chloride (Normal Saline) 1,000 mls @ 999 mls/hr IV STAT ONE Stop: 07/12/17 11:51 Last Infusion: 07/12/17 11:45 Dose: 125 mls/hr Magnesium Sulfate 4 gm/ Premix 100 mls @ 50 mls/hr IV ONETIME ONE Stop: 07/12/17 18:54 Last Admin: 07/12/17 17:41 Dose: 50 mls/hr Magnesium Sulfate 4 gm/ Premix 100 mls @ 50 mls/hr IV ONETIME ONE Stop: 07/14/17 09:55 Last Admin: 07/14/17 08:47 Dose: 50 mls/hr Insulin Aspart (Novolog) 0 unit SUBCUT TIDAC RA PRN Reason: Protocol Last Admin: 07/13/17 17:11 Dose: 5 units Insulin Aspart (Novolog) 8 unit SUBCUT ONETIME ONE Stop: 07/14/17 11:54 Insulin Human Regular (Novolin R) 5 unit SUBCUT ONETIME ONE PRN Reason: Protocol Stop: 07/12/17 11:04 Last Admin: 07/12/17 13:54 Dose: Not Given Insulin Human Regular (Novolin R) 3 unit SUBCUT ONETIME ONE PRN Reason: Protocol Stop: 07/12/17 11:08 Last Admin: 07/12/17 11:28 Dose: 3 unit Insulin Human Regular (Novolin R) 3 unit SUBCUT ONETIME ONE PRN Reason: Protocol Stop: 07/12/17 12:08 Last Admin: 07/12/17 12:15 Dose: 3 units Insulin Human Regular (Novolin R) 3 unit SUBCUT ONETIME ONE PRN Reason: Protocol Stop: 07/12/17 13:23 Last Admin: 07/12/17 14:00 Dose: 3 units - Exam Quality Assessment: Reports: DVT Prophylaxis. Denies: Supplemental Oxygen General: Reports: Alert, Oriented, Cooperative, No Acute Distress Neck: Reports: Supple, No JVD Lungs: Reports: Clear to Auscultation, Normal Respiratory Effort Cardiovascular: Reports: Regular Rate, Regular Rhythm GI/Abdominal Exam: Normal Bowel Sounds, Soft, Non-Tender, No Organomegaly, No Distention, No Abnormal Bruit, No Mass, Pelvis Stable Extremities: Normal Inspection, Normal Range of Motion, Pedal Edema (+1 non pitting edema bilaterally) Psy/Mental Status: Reports: Alert, Normal Affect, Normal Mood *Q Meaningful Use (DIS) - VTE *Q VTE Criteria *Q: - Stroke *Q Stroke Criteria *Q: - AMI *Q AMI Criteria *Q:
[2017-07-14 12:48] VITALS: BP 175/76
--- NOTE | 2017-07-15 13:30 | PCM.SN ---
- Free Text/Narrative Note: Hepatitis C AB returned reactive. Lab drawn in ED. Notified patient and who will follow with PCP, Selina Kingston NP. I was unable to speak with Selina, but spoke with her nurse Lilly, who will make note regarding reactive Hepatitis C test. Bell did state she had a blood transfusion 30+ years ago. They will address this at follow up next week.
--- NOTE | 2017-07-16 14:54 | ECHO ---
EXAM DATE: 07/12/17 PATIENT'S AGE: 61 The echocardiogram report can be seen in this patient's EMR (Electronic Medical Record) in the Reports section. The report has also been scanned into PACs. SHERON
== END 2017-07-14 12:52 | disposition home or self-care (01) ==
LOC: MW.ED 10:28 → MW.MS 14:05
PROVIDERS: ADMIT Internal Medicine; ATTEND Internal Medicine
DX: R53.1 Weakness (principal); R06.09 Other forms of dyspnea; R60.0 Localized edema; E10.65 Type 1 diabetes mellitus with hyperglycemia; F17.210 Nicotine dependence, cigarettes, uncomplicated; I10 Essential (primary) hypertension; E83.42 Hypomagnesemia; M19.90 Unspecified osteoarthritis, unspecified site; Z79.4 Long term (current) use of insulin; Z87.442 Personal history of urinary calculi
CPT/HCPCS: 36415; 36600; 70450; 71010; 80048; 80053; 82150; 82803; 82962; 83036; 83690; 83735; 83880; 84443; 84484; 85025; 85610; 86803; 87040; 93005; 93306; 96361; 96365; 96366; 96372; 96375; 96376; 97161; 99285; A9270; G0008; G0378; J1650; J1815; J1940; J3475; J7040; J7060; 90686; 96360; 99283

== ENCOUNTER 2017-08-04 08:56 | Inpatient (IN) | payer OTHER ==
[2017-08-04] MEDS ORDERED: Sodium Chloride 0.9% 1,000 ML IV ONE ×3 (09:11→15:04)
[2017-08-04] MEDS ORDERED: Sodium Chloride 0.9% 10 ML Syringe FLUSH PRN (09:11)
[2017-08-04] MEDS ORDERED: Sodium Chloride 0.9% 2.5 ML Syringe FLUSH PRN (09:11)
--- NOTE | 2017-08-04 09:12 | EDM.PDOC ---
ED HPI GENERAL MEDICAL PROBLEM - General Chief Complaint: Diabetic Complaint Stated Complaint: HIGH BLOOD SUGAR Time Seen by Provider: 08/04/17 09:03 Source of Information: Reports: Patient, Family History Limitations: Reports: Altered Mental Status - History of Present Illness INITIAL COMMENTS - FREE TEXT/NARRATIVE: History of present illness: []Patient is an insulin-dependent diabetic who has a history of DKA. She recently fell and was admitted for her diabetes and has not been the same since.. Her glucose yesterday was high and patient started vomiting when this happens she has difficulty communicating with profound weakness. She was able to drink a "case" of water yesterday. Her glucose this morning was over 500. She currently denies any pain. Review of systems: As per history of present illness and below otherwise all systems reviewed and negative. Past medical history: As per history of present illness and as reviewed below otherwise noncontributory. Surgical history: As per history of present illness and as reviewed below otherwise noncontributory. Social history: No reported history of drug or alcohol abuse. Family history: As per history of present illness and as reviewed below otherwise noncontributory. Physical exam: General: Well developed, well nourished in NAD HEENT: Atraumatic, normocephalic, pupils reactive, negative for conjunctival pallor or scleral icterus, mucous membranes dry, throat clear, neck supple, nontender, trachea midline. Lungs: Clear to auscultation, breath sounds equal bilaterally, chest nontender. Heart: S1S2, regular, negative for clicks, rubs, or JVD. Abdomen: Soft, nondistended, nontender. Negative for masses or hepatosplenomegaly. Negative for costovertebral tenderness. Pelvis: Stable nontender. Genitourinary: Deferred. Rectal: Deferred. Extremities: Atraumatic, negative for cords or calf pain. Neurovascular unremarkable. Neuro: Awake, alert, oriented. Cranial nerves II through XII unremarkable. Cerebellum unremarkable. Motor and sensory unremarkable throughout. Exam nonfocal. Diagnostics: []CBC chemistry ABG done showing DKA Therapeutics: []IV fluids and insulin drip started Impression: []DKA Plan: []Admit to ICU Definitive disposition and diagnosis as appropriate pending reevaluation and review of above. Bilateral Lower Leg Pain Score (Numeric/FACES): 5 - Related Data Allergies Allergy/AdvReac Type Severity Reaction Status Date / Time No Known Allergies Allergy Verified 08/04/17 09:00 Home Meds: Home Meds Insulin Lispro [HumaLOG] 1 unit SQ ACBED 10/24/14 [History] Aspirin [Ecotrin] 325 mg PO DAILY 07/13/17 [History] Lisinopril [Prinivil] 10 mg PO DAILY #30 tablet 07/14/17 [Rx] Insulin Glarg,Human.Rec.Analog [LantUS Solostar] 14 units SUBCUT DAILY 08/04/17 [History] Past Medical History - Past Health History Medical/Surgical History: Denies Medical/Surgical History HEENT History: Reports: Impaired Vision Other HEENT History: wears eye glasses Cardiovascular History: Reports: Hypertension Respiratory History: Reports: SOB Gastrointestinal History: Reports: None Genitourinary History: Reports: Renal Calculus Other Genitourinary History: X 2 , Surgical remval of renal calculus [employer] History: Reports: Musculoskeletal History: Reports: Arthritis Neurological History: Reports: Headaches, Chronic, Migraines, Vertigo Psychiatric History: Reports: None Endocrine/Metabolic History: Reports: Diabetes, Type I Other Endocrine/Metabolic History: Diagnosed X 20 years ago Hematologic History: Reports: None Immunologic History: Reports: None Oncologic (Cancer) History: Reports: None Dermatologic History: Reports: None - Infectious Disease History Infectious Disease History: Reports: None - Past Surgical History Head Surgeries/Procedures: Reports: None HEENT Surgical History: Reports: None Cardiovascular Surgical History: Reports: None GI Surgical History: Reports: None Endocrine Surgical History: Reports: None Neurological Surgical History: Reports: None Musculoskeletal Surgical History: Reports: None Social & Family History - Family History Family Medical History: Noncontributory - Tobacco Use Smoking Status *Q: Current Every Day Smoker Years of Tobacco use: 45 Packs/Tins Daily: 1 Used Tobacco, but Quit: No Second Hand Smoke Exposure: No - Caffeine Use Caffeine Use: Reports: Coffee, Tea - Alcohol Use Days Per Week of Alcohol Use: 0 - Recreational Drug Use Recreational Drug Use: No Recreational Drug Use Frequency: Rarely - Living Situation & Occupation Living situation: Reports: Alone ED ROS GENERAL - Review of Systems Review Of Systems: See Below (See history of present illness) ED EXAM GENERAL NO PERIP PULSE - Physical Exam Exam: See Below (See history of present illness) Course - Vital Signs Last Recorded V/S: Last Vital Signs Temp 36.6 C 08/04/17 09:04 Pulse 88 08/04/17 11:24 Resp 13 08/04/17 11:24 BP 123/49 L 08/04/17 11:24 Pulse Ox 97 08/04/17 11:24 - Orders/Labs/Meds Orders: Active Orders 24 hr Category Date Time Status CULTURE BLOOD [BC] Stat Lab 08/04/17 09:45 Received CULTURE BLOOD [BC] Stat Lab 08/04/17 09:55 Received UA W/MICROSCOPIC [URIN] Stat Lab 08/04/17 09:11 Uncollected Insulin Regular, Human [NovoLIN R] 100 unit Med 08/04/17 10:30 Active Sodium Chloride 0.9% [Normal Saline] 99 ml IV TITRATE Sodium Chloride 0.9% [Saline Flush] Med 08/04/17 09:11 Active 10 ml FLUSH ASDIRECTED PRN Sodium Chloride 0.9% [Saline Flush] Med 08/04/17 09:11 Active 2.5 ml FLUSH ASDIRECTED PRN Blood Culture x2 Reflex Set [OM.PC] Stat Oth 08/04/17 09:10 Ordered Saline Lock Insert [OM.PC] Stat Oth 08/04/17 09:10 Ordered Medication Orders Acetaminophen (Tylenol) 650 mg PO Q4H PRN PRN Reason: Pain (Mild 1-3)/fever Albuterol/Ipratropium (Duoneb 3.0-0.5 Mg/3 Ml) 3 ml NEB Q6HRRT PRN PRN Reason: SOB/Wheezing Bisacodyl (Dulcolax) 5 mg PO DAILY PRN PRN Reason: Constipation Docusate Sodium (Colace) 100 mg PO BID PRN PRN Reason: Constipation Enoxaparin Sodium (Lovenox) 40 mg SUBCUT DAILY RA Insulin Human Regular 100 unit (/ Sodium Chloride) 100 mls @ 7 mls/hr IV TITRATE RA PRN Reason: Protocol Last Admin: 08/04/17 10:54 Dose: 0.12 units/kg/hr, 7 mls/hr Sodium Chloride (Normal Saline) 1,000 mls @ 150 mls/hr IV ASDIRECTED RA Last Admin: 08/04/17 12:38 Dose: 150 mls/hr Ondansetron HCl (Zofran) 4 mg IVPUSH Q4H PRN PRN Reason: Nausea Sodium Chloride (Saline Flush) 10 ml FLUSH ASDIRECTED PRN PRN Reason: Keep Vein Open Last Admin: 08/04/17 09:33 Dose: 10 ml Sodium Chloride (Saline Flush) 2.5 ml FLUSH ASDIRECTED PRN PRN Reason: Keep Vein Open Last Admin: 08/04/17 09:33 Dose: 2.5 ml Temazepam (Restoril) 15 mg PO BEDTIME PRN PRN Reason: Sleep Labs: Laboratory Tests 08/04/17 08/04/17 08/04/17 Range/Units 09:27 09:27 09:27 WBC 18.15 H (4.0-11.0) K/uL RBC 3.75 L (4.30-5.90) M/uL Hgb 11.9 L (12.0-16.0) g/dL Hct 36.6 (36.0-46.0) % MCV 97.6 (80.0-98.0) fL MCH 31.7 (27.0-32.0) pg MCHC 32.5 (31.0-37.0) g/dL RDW Std Deviation 47.9 (28.0-62.0) fl RDW Coeff of Nicolasa 13 (11.0-15.0) % Plt Count 433 H (150-400) K/uL MPV 9.30 (7.40-12.00) fL Add Manual Diff YES Neutrophils % (Manual) 83 H (48.0-80.0) % Band Neutrophils % 4 % Lymphocytes % (Manual) 7 L (16.0-40.0) % Monocytes % (Manual) 5 (0.0-15.0) % Basophils % (Manual) 1 (0.0-1.5) % Nucleated RBC % 0.0 /100WBC Absolute Seg Neuts 15.1 H (1.4-5.7) Band Neutrophils # 0.7 Lymphocytes # (Manual) 1.3 (0.6-2.4) Monocytes # (Manual) 0.9 H (0.0-0.8) Basophils # (Manual) 0.2 H (0.0-0.1) Nucleated RBCs # 0 K/uL ABG pH (7.35-7.45) ABG pCO2 (35-45) mmHG ABG pO2 (75-100) mmHG ABG HCO3 (22-26) mEq/L ABG Total CO2 ABG Base Excess (-2.0-2.0) Lactate 3.0 H (0.20-2.00) mmol/L Sodium 123 L (136-146) mmol/L Potassium 4.5 (3.5-5.1) mmol/L Chloride 92 L (98-110) mmol/L Carbon Dioxide 11 L (21-31) mmol/L BUN 65 H (6.0-23.0) mg/dL Creatinine 2.6 H (0.6-1.5) mg/dL Est Cr Clr Drug Dosing TNP Estimated GFR (MDRD) 18.6 ml/min Glucose 842 H* (60-110) mg/dL Calcium 7.8 L (8.8-10.8) mg/dL Magnesium (1.5-2.3) mEq/L Total Bilirubin 0.2 (0.1-1.5) mg/dL AST 26 (5-40) IU/L ALT 17 (8-54) IU/L Alkaline Phosphatase 117 (40-150) Total Protein 5.5 L (6.0-8.0) g/dL Albumin 2.2 L (3.4-4.8) g/dL Globulin 3.3 (2.0-3.5) g/dL Albumin/Globulin Ratio 0.7 L (1.3-2.8) 08/04/17 08/04/17 Range/Units 09:27 09:56 WBC (4.0-11.0) K/uL RBC (4.30-5.90) M/uL Hgb (12.0-16.0) g/dL Hct (36.0-46.0) % MCV (80.0-98.0) fL MCH (27.0-32.0) pg MCHC (31.0-37.0) g/dL RDW Std Deviation (28.0-62.0) fl RDW Coeff of Nicolasa (11.0-15.0) % Plt Count (150-400) K/uL MPV (7.40-12.00) fL Add Manual Diff Neutrophils % (Manual) (48.0-80.0) % Band Neutrophils % % Lymphocytes % (Manual) (16.0-40.0) % Monocytes % (Manual) (0.0-15.0) % Basophils % (Manual) (0.0-1.5) % Nucleated RBC % /100WBC Absolute Seg Neuts (1.4-5.7) Band Neutrophils # Lymphocytes # (Manual) (0.6-2.4) Monocytes # (Manual) (0.0-0.8) Basophils # (Manual) (0.0-0.1) Nucleated RBCs # K/uL ABG pH 7.292 L (7.35-7.45) ABG pCO2 25 L (35-45) mmHG ABG pO2 90 (75-100) mmHG ABG HCO3 12 L (22-26) mEq/L ABG Total CO2 11.2 ABG Base Excess -13.0 L (-2.0-2.0) Lactate (0.20-2.00) mmol/L Sodium (136-146) mmol/L Potassium (3.5-5.1) mmol/L Chloride (98-110) mmol/L Carbon Dioxide (21-31) mmol/L BUN (6.0-23.0) mg/dL Creatinine (0.6-1.5) mg/dL Est Cr Clr Drug Dosing Estimated GFR (MDRD) ml/min Glucose (60-110) mg/dL Calcium (8.8-10.8) mg/dL Magnesium 1.4 L (1.5-2.3) mEq/L Total Bilirubin (0.1-1.5) mg/dL AST (5-40) IU/L ALT (8-54) IU/L Alkaline Phosphatase (40-150) Total Protein (6.0-8.0) g/dL Albumin (3.4-4.8) g/dL Globulin (2.0-3.5) g/dL Albumin/Globulin Ratio (1.3-2.8) Meds: Medications Generic Name Dose Route Start Last Admin Trade Name Freq PRN Reason Stop Dose Admin Acetaminophen 650 mg 08/04/17 10:56 Tylenol PO Q4H PRN Pain (Mild 1-3)/fever Albuterol/Ipratropium 3 ml 08/04/17 12:22 Duoneb 3.0-0.5 Mg/3 Ml NEB Q6HRRT PRN SOB/Wheezing Bisacodyl 5 mg 08/04/17 10:56 Dulcolax PO DAILY PRN Constipation Docusate Sodium 100 mg 08/04/17 10:56 Colace PO BID PRN Constipation Enoxaparin Sodium 40 mg 08/05/17 09:00 Lovenox SUBCUT DAILY RA Insulin Human Regular 100 unit 100 mls @ 7 mls/hr 08/04/17 10:30 08/04/17 10: 54 / Sodium Chloride IV 0.12 units/kg/hr TITRATE RA 7 mls/hr Protocol Administration Sodium Chloride 1,000 mls @ 150 mls/hr 08/04/17 11:15 08/04/17 12:38 Normal Saline IV 150 mls/hr ASDIRECTED RA Administration Ondansetron HCl 4 mg 08/04/17 10:56 Zofran IVPUSH Q4H PRN Nausea Sodium Chloride 10 ml 08/04/17 09:11 08/04/17 09:33 Saline Flush FLUSH 10 ml ASDIRECTED PRN Administration Keep Vein Open Sodium Chloride 2.5 ml 08/04/17 09:11 08/04/17 09:33 Saline Flush FLUSH 2.5 ml ASDIRECTED PRN Administration Keep Vein Open Temazepam 15 mg 08/04/17 10:56 Restoril PO BEDTIME PRN Sleep Discontinued Medications Generic Name Dose Route Start Last Admin Trade Name Freq PRN Reason Stop Dose Admin Albuterol/Ipratropium 3 ml 08/04/17 11:00 08/04/17 11:24 Duoneb 3.0-0.5 Mg/3 Ml NEB Not Given Q6HRRT RA Sodium Chloride 1,000 mls @ 999 mls/hr 08/04/17 09:11 08/04/17 09:33 Normal Saline IV 08/04/17 10:11 999 mls/hr .Bolus ONE Administration Sodium Chloride 1,000 mls @ 125 mls/hr 08/04/17 10:45 08/04/17 10:56 Normal Saline IV 125 mls/hr ASDIRECTED RA Administration Sodium Chloride 1,000 mls @ 999 mls/hr 08/04/17 12:00 08/04/17 12:04 Normal Saline IV 08/04/17 13:00 999 mls/hr .Bolus ONE Administration Departure - Departure Time of Disposition: 11:25 Disposition: Admitted As Inpatient 64 Condition: Good Clinical Impression: DKA (diabetic ketoacidoses) Qualifiers: Diabetes mellitus type: other specified (including ATIYA) Diabetes mellitus complication detail: without coma Qualified Code(s): E13.10 - Other specified diabetes mellitus with ketoacidosis without coma - Discharge Information - My Orders Last 24 Hours: My Active Orders 08/04/17 09:10 Blood Culture x2 Reflex Set [OM.PC] Stat Saline Lock Insert [OM.PC] Stat 08/04/17 09:11 UA W/MICROSCOPIC [URIN] Stat Sodium Chloride 0.9% [Saline Flush] 10 ml FLUSH ASDIRECTED PRN Sodium Chloride 0.9% [Saline Flush] 2.5 ml FLUSH ASDIRECTED PRN 08/04/17 09:45 CULTURE BLOOD [BC] Stat 08/04/17 09:55 CULTURE BLOOD [BC] Stat 08/04/17 10:30 Insulin Regular, Human [NovoLIN R] 100 unit Sodium Chloride 0.9% [Normal Saline] 99 ml IV TITRATE - Assessment/Plan Last 24 Hours: My Active Orders 08/04/17 09:10 Blood Culture x2 Reflex Set [OM.PC] Stat Saline Lock Insert [OM.PC] Stat 08/04/17 09:11 UA W/MICROSCOPIC [URIN] Stat Sodium Chloride 0.9% [Saline Flush] 10 ml FLUSH ASDIRECTED PRN Sodium Chloride 0.9% [Saline Flush] 2.5 ml FLUSH ASDIRECTED PRN 08/04/17 09:45 CULTURE BLOOD [BC] Stat 08/04/17 09:55 CULTURE BLOOD [BC] Stat 08/04/17 10:30 Insulin Regular, Human [NovoLIN R] 100 unit Sodium Chloride 0.9% [Normal Saline] 99 ml IV TITRATE
[2017-08-04 10:08] LABS: CHLORIDE,CL 92 mmol/L (98-110); SODIUM,NA 123 mmol/L (136-146)
[2017-08-04] MEDS ORDERED: Sodium Chloride 0.9% 1,000 ML IV SCH (10:45)
--- NOTE | 2017-08-04 10:55 | PCM.SN ---
- Free Text/Narrative Note: I spoke with Dr Johnson. I saw and examined patient and reviewed lab. I agree with diagnosis of diabetic ketoacidosis. No history of fever of suspected infection. elevated wbc and elevated lactate. See orders will check CXR repeat lactate and CBC at 1400. Federico Rodrigues MD
[2017-08-04] MEDS ORDERED: Acetaminophen 325 MG Tab PO PRN (10:56)
[2017-08-04] MEDS ORDERED: Bisacodyl 5 MG Tab PO PRN (10:56)
[2017-08-04] MEDS ORDERED: Docusate Sodium 100 MG Cap PO PRN (10:56)
[2017-08-04] MEDS ORDERED: Temazepam 15 MG Cap PO PRN (10:56)
[2017-08-04] MEDS ORDERED: Ondansetron 4 MG/2 ML SDV IVPUSH PRN (10:56)
[2017-08-04] MEDS: Albuterol/Ipratropium 3.0-0.5 MG/3 ML Neb Soln NEB SCH ×2 (11:24→13:44)
[2017-08-04] MEDS ORDERED: Albuterol/Ipratropium 3.0-0.5 MG/3 ML Neb Soln NEB PRN (12:22)
[2017-08-04] MEDS: Sodium Chloride 0.9% 1,000 ML IV SCH ×2 (12:38→22:30)
--- NOTE | 2017-08-04 13:18 | CR ---
EXAM DATE: 08/04/17 PATIENT'S AGE: 61 [facility] Facility: [place], [place] Site . Site : [id number] Study: XRay Chest [id number] 12:34:36 PM Ordering Physician: Ravi Caballero Final Report: INDICATION: Cough COMPARISON: Portable chest dated 07/12/2017. TECHNIQUE: Portable AP erect chest performed at 12:29 p.m. FINDINGS: The lungs are clear. The heart, mediastinum and pulmonary vessels are of normal size. There is no evidence of pleural fluid. IMPRESSION: Negative chest. Dictated by Vern Hayes MD @ Aug 04 2017 12:50PM (Electronic Signature) Report Signed by Proxy. SHERON
[2017-08-04] MEDS ORDERED: Magnesium Sulfate/Water 2 GM in Premix Bag 1 BAG IV ONE ×2 (13:37→19:23)
[2017-08-04] MEDS: Nicotine 21 MG/24 Hr Patch TRDERM SCH (14:10)
--- NOTE | 2017-08-04 15:22 | PCM.HP ---
H&P History of Present Illness - General Date of Service: 08/04/17 Admit Problem/Dx: Admission Diagnosis/Problem Admission Diagnosis/Problem Diabetic ketoacidosis Source of Information: Other (Emergency physician note. Past hospitalization admission note.) History Limitations: Reports: Other (Patient is very sleepy and not overly responsive to questions.) - History of Present Illness Initial Comments - Free Text/Narative: 61-year-old female with a history of hypertension and type 1 diabetes that is being admitted with diabetic ketoacidosis. Patient noted that yesterday she started to experience vomiting and checked her blood sugars and they were over 500. Patient drank a case of water to prevent dehydration but notes that the vomiting has persisted and she feels weak and lethargic. Patient was recently admitted for a fall and was found to have very low blood sugars. Patient typically takes Lantus 15 units daily and also Humalog sliding scale. She was seen by the family life educator at her last visit at the beginning of July and had her Lantus decreased to 15 units and was also educated on Humalog use and goals for blood sugar. Patient was to follow-up with the family life educator and her primary care provider, Selina Kingston. Secondary to the patient's obtunded state, I am unsure if she was able to keep these appointments. During her previous hospitalization as well, the patient had an echocardiogram done that she had peripheral edema. Ejection fraction was 55-60% but the patient did have increased right ventricular pressure. Recommendations were made for outpatient sleep study and also possible pulmonary function testing secondary to long history of tobacco use. Patient's most recent A1c at her previous hospitalization at the [facility] July was 11.3%. Patient does not check her blood sugars on a regular basis but was encouraged to do so at discharge of her previous hospitalization. Although the patient is not overly responsive to questions, she does not report any pain. ER course: Patient is given a fluid bolus of normal saline and started on an insulin drip. Her white blood cell count is elevated at 18.2 and her lactate is 3.0. This is most likely secondary to dehydration and reaction response to her diabetic ketoacidosis. Patient is afebrile and is not tachycardic or having respiratory distress. Her sodium was 123 but corrected secondary to her hyperglycemia it is 139. Glucose while in the ER is 842. Bicarbonate is 11. BUN is 65 and creatinine is 2.6. Her magnesium is low at 1.4. Anion gap is 20. Blood cultures were obtained. Urinalysis is pending. ABG showed a pH of 7.2 and bicarbonate is 12. Chest x-ray was unremarkable. Patient was moved to the ICU for close monitoring and reversal of DKA. Bilateral Lower Leg Pain Score (Numeric/FACES): 5 - Related Data Allergies/Adverse Reactions: Allergies Allergy/AdvReac Type Severity Reaction Status Date / Time No Known Allergies Allergy Verified 08/04/17 09:00 Home Medications: Home Meds Insulin Lispro [HumaLOG] 1 unit SQ ACBED 10/24/14 [History] Aspirin [Ecotrin] 325 mg PO DAILY 07/13/17 [History] Lisinopril [Prinivil] 10 mg PO DAILY #30 tablet 07/14/17 [Rx] Insulin Glarg,Human.Rec.Analog [LantUS Solostar] 14 units SUBCUT DAILY 08/04/17 [History] Past Medical History - Past Health History Medical/Surgical History: Denies Medical/Surgical History HEENT History: Reports: Impaired Vision Other HEENT History: wears eye glasses Cardiovascular History: Reports: Hypertension Respiratory History: Reports: SOB Gastrointestinal History: Reports: None Genitourinary History: Reports: Renal Calculus Other Genitourinary History: X 2 , Surgical remval of renal calculus 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: Other OB/BYN History: PAST Musculoskeletal History: Reports: Arthritis Neurological History: Reports: Headaches, Chronic, Migraines, Vertigo Psychiatric History: Reports: None Endocrine/Metabolic History: Reports: Diabetes, Type I Other Endocrine/Metabolic History: Diagnosed X 20 years ago Hematologic History: Reports: None Immunologic History: Reports: None Oncologic (Cancer) History: Reports: None Dermatologic History: Reports: None - Infectious Disease History Infectious Disease History: Reports: None - Past Surgical History Head Surgeries/Procedures: Reports: None HEENT Surgical History: Reports: None Cardiovascular Surgical History: Reports: None GI Surgical History: Reports: None Endocrine Surgical History: Reports: None Neurological Surgical History: Reports: None Musculoskeletal Surgical History: Reports: None Social & Family History - Family History Family Medical History: Noncontributory - Tobacco Use Smoking Status *Q: Current Every Day Smoker Years of Tobacco use: 45 Packs/Tins Daily: 1 Used Tobacco, but Quit: No Second Hand Smoke Exposure: No - Caffeine Use Caffeine Use: Reports: Coffee, Tea - Alcohol Use Days Per Week of Alcohol Use: 0 - Recreational Drug Use Recreational Drug Use: No Recreational Drug Use Frequency: Rarely - Living Situation & Occupation Living situation: Reports: Alone H&P Review of Systems - Review of Systems: Review Of Systems: See Below General: Reports: Weakness, Fatigue HEENT: Reports: No Symptoms Pulmonary: Reports: No Symptoms Cardiovascular: Reports: No Symptoms Gastrointestinal: Reports: Nausea Genitourinary: Reports: No Symptoms Musculoskeletal: Reports: No Symptoms Skin: Reports: No Symptoms Psychiatric: Reports: No Symptoms Neurological: Reports: Weakness Hematologic/Lymphatic: Reports: No Symptoms Immunologic: Reports: No Symptoms Exam - Exam Exam: See Below - Vital Signs Vital Signs: Last Vital Signs Temp 97.9 F 08/04/17 11:45 Pulse 88 08/04/17 11:24 Resp 20 08/04/17 14:00 BP 116/48 L 08/04/17 14:00 Pulse Ox 99 08/04/17 14:00 Weight: 124 lb 12.506 oz - Exam General: Obtunded, Other (Patient not overly responsive to questions but will answer some questions appropriately.) HEENT: Conjunctiva Clear, Hearing Intact, Nares Patent, Normal Nasal Septum, Posterior Pharynx Clear, Other (Buccal mucosa is extremely dry.), PERRLA Neck: Supple, Trachea Midline, 2 Lungs: Clear to Auscultation, Normal Respiratory Effort Cardiovascular: Regular Rate, Regular Rhythm GI/Abdominal Exam: Normal Bowel Sounds, Soft, Non-Tender, No Organomegaly, No Distention, No Abnormal Bruit, No Mass Extremities: Normal Inspection, Normal Range of Motion, Non-Tender, Normal Capillary Refill, Other (Nonpitting edema of the right lower extremity. Extremity is not erythematous or tender with palpation.) Peripheral Pulses: 2+: Radial (L), Radial (R), Posterior Tibial (L), Posterior Tibial (R) Skin: Warm, Dry, Intact Neuro Extensive - Mental Status: Oriented x3, Opens Eyes to Commands, Slow Response to Commands Psychiatric: Other (Patient is extremely sleepy.) - Patient Data Lab Results Last 24 hrs: Laboratory Results - last 24 hr 08/04/17 08/04/17 08/04/17 Range/Units 10:40 11:52 13:11 WBC (4.0-11.0) K/uL RBC (4.30-5.90) M/uL Hgb (12.0-16.0) g/dL Hct (36.0-46.0) % MCV (80.0-98.0) fL MCH (27.0-32.0) pg MCHC (31.0-37.0) g/dL RDW Std Deviation (28.0-62.0) fl RDW Coeff of Nicolasa (11.0-15.0) % Plt Count (150-400) K/uL MPV (7.40-12.00) fL Add Manual Diff Neutrophils % (Manual) (48.0-80.0) % Band Neutrophils % % Lymphocytes % (Manual) (16.0-40.0) % Monocytes % (Manual) (0.0-15.0) % Nucleated RBC % /100WBC Absolute Seg Neuts (1.4-5.7) Band Neutrophils # Lymphocytes # (Manual) (0.6-2.4) Monocytes # (Manual) (0.0-0.8) Nucleated RBCs # K/uL Lactate (0.20-2.00) mmol/L Sodium (136-146) mmol/L Potassium (3.5-5.1) mmol/L Chloride (98-110) mmol/L Carbon Dioxide (21-31) mmol/L BUN (6.0-23.0) mg/dL Creatinine (0.6-1.5) mg/dL Est Cr Clr Drug Dosing mL/min Estimated GFR (MDRD) ml/min Glucose (60-110) mg/dL POC Glucose > 500 H > 500 H 455 H (60-110) mg/dL Calcium (8.8-10.8) mg/dL 08/04/17 08/04/17 08/04/17 Range/Units 14:02 14:02 14:02 WBC 15.69 H (4.0-11.0) K/uL RBC 3.76 L (4.30-5.90) M/uL Hgb 11.8 L (12.0-16.0) g/dL Hct 34.5 L (36.0-46.0) % MCV 91.8 (80.0-98.0) fL MCH 31.4 (27.0-32.0) pg MCHC 34.2 (31.0-37.0) g/dL RDW Std Deviation 43.5 (28.0-62.0) fl RDW Coeff of Nicolasa 13 (11.0-15.0) % Plt Count 359 (150-400) K/uL MPV 9.00 (7.40-12.00) fL Add Manual Diff YES Neutrophils % (Manual) 73 (48.0-80.0) % Band Neutrophils % 5 % Lymphocytes % (Manual) 13 L (16.0-40.0) % Monocytes % (Manual) 9 (0.0-15.0) % Nucleated RBC % 0.0 /100WBC Absolute Seg Neuts 11.5 H (1.4-5.7) Band Neutrophils # 0.8 Lymphocytes # (Manual) 2.0 (0.6-2.4) Monocytes # (Manual) 1.4 H (0.0-0.8) Nucleated RBCs # 0 K/uL Lactate 2.2 H (0.20-2.00) mmol/L Sodium 126 L (136-146) mmol/L Potassium 4.0 (3.5-5.1) mmol/L Chloride 99 (98-110) mmol/L Carbon Dioxide 17 L (21-31) mmol/L BUN 59 H (6.0-23.0) mg/dL Creatinine 2.2 H (0.6-1.5) mg/dL Est Cr Clr Drug Dosing 23.39 mL/min Estimated GFR (MDRD) 22.5 ml/min Glucose 650 H* (60-110) mg/dL POC Glucose (60-110) mg/dL Calcium 7.3 L (8.8-10.8) mg/dL 08/04/17 08/04/17 Range/Units 14:04 15:00 WBC (4.0-11.0) K/uL RBC (4.30-5.90) M/uL Hgb (12.0-16.0) g/dL Hct (36.0-46.0) % MCV (80.0-98.0) fL MCH (27.0-32.0) pg MCHC (31.0-37.0) g/dL RDW Std Deviation (28.0-62.0) fl RDW Coeff of Nicolasa (11.0-15.0) % Plt Count (150-400) K/uL MPV (7.40-12.00) fL Add Manual Diff Neutrophils % (Manual) (48.0-80.0) % Band Neutrophils % % Lymphocytes % (Manual) (16.0-40.0) % Monocytes % (Manual) (0.0-15.0) % Nucleated RBC % /100WBC Absolute Seg Neuts (1.4-5.7) Band Neutrophils # Lymphocytes # (Manual) (0.6-2.4) Monocytes # (Manual) (0.0-0.8) Nucleated RBCs # K/uL Lactate (0.20-2.00) mmol/L Sodium (136-146) mmol/L Potassium (3.5-5.1) mmol/L Chloride (98-110) mmol/L Carbon Dioxide (21-31) mmol/L BUN (6.0-23.0) mg/dL Creatinine (0.6-1.5) mg/dL Est Cr Clr Drug Dosing mL/min Estimated GFR (MDRD) ml/min Glucose (60-110) mg/dL POC Glucose 478 H 439 H (60-110) mg/dL Calcium (8.8-10.8) mg/dL Result Diagrams: 08/04/17 14:02 08/04/17 14:02 *Q Meaningful Use (ADM) - VTE *Q VTE Criteria *Q: - Stroke *Q Stroke Criteria *Q: - AMI *Q AMI Criteria *Q: - Problem List (1) DKA (diabetic ketoacidoses) SNOMED Code(s): 750129334 ICD Code: E13.10 - OTH DIABETES MELLITUS WITH KETOACIDOSIS WITHOUT COMA Status: Acute Current Visit: Yes Qualifiers: Diabetes mellitus type: other specified (including ATIYA) Diabetes mellitus complication detail: without coma Qualified Code(s): E13.10 - Other specified diabetes mellitus with ketoacidosis without coma Problem List Initiated/Reviewed/Updated: Yes Orders Last 24hrs: Active Orders 24 hr Category Date Time Status Blood Glucose Check, Bedside [RC] Q1H Care 08/04/17 10:56 Active Oxygen Therapy [RC] PRN Care 08/04/17 10:56 Active RT Aerosol Therapy [RC] ASDIRECTED Care 08/04/17 11:04 Active Vital Signs [RC] Q1H Care 08/04/17 10:56 Active [employer] Diet [DIET] Diet 08/04/17 Lunch Active NPO [Nothing Per Oral Diet] [DIET] Diet 08/04/17 Dinner Active BASIC METABOLIC PANEL,BMP [CHEM] AM Lab 08/05/17 05:11 Ordered BASIC METABOLIC PANEL,BMP [CHEM] AM Lab 08/06/17 05:11 Ordered BASIC METABOLIC PANEL,BMP [CHEM] AM Lab 08/07/17 05:11 Ordered BASIC METABOLIC PANEL,BMP [CHEM] Q6H Lab 08/04/17 20:00 Ordered CBC WITH AUTO DIFF [HEME] AM Lab 08/05/17 05:11 Ordered CBC WITH AUTO DIFF [HEME] AM Lab 08/06/17 05:11 Ordered CBC WITH AUTO DIFF [HEME] AM Lab 08/07/17 05:11 Ordered CBC WITH AUTO DIFF [HEME] AM Lab 08/08/17 05:11 Ordered CBC WITH AUTO DIFF [HEME] Q6H Lab 08/04/17 20:00 Ordered LACTIC ACID,WHOLE BLOOD [BG] Q6H Lab 08/04/17 20:00 Ordered MAGNESIUM [CHEM] AM Lab 08/05/17 05:11 Ordered MAGNESIUM [CHEM] AM Lab 08/06/17 05:11 Ordered MAGNESIUM [CHEM] AM Lab 08/07/17 05:11 Ordered Acetaminophen [Tylenol] Med 08/04/17 10:56 Active 650 mg PO Q4H PRN Albuterol/Ipratropium [DuoNeb 3.0-0.5 MG/3 ML] Med 08/04/17 12:22 Active 3 ml NEB Q6HRRT PRN Bisacodyl [Dulcolax] Med 08/04/17 10:56 Active 5 mg PO DAILY PRN Docusate Sodium [Colace] Med 08/04/17 10:56 Active 100 mg PO BID PRN Enoxaparin [Lovenox] Med 08/05/17 09:00 Active 40 mg SUBCUT DAILY Nicotine [Habitrol] Med 08/04/17 13:45 Active 21 mg TRDERM Q24H Ondansetron [Zofran] Med 08/04/17 10:56 Active 4 mg IVPUSH Q4H PRN Sodium Chloride 0.9% [Normal Saline] 1,000 ml Med 08/04/17 11:15 Active IV ASDIRECTED Sodium Chloride 0.9% [Normal Saline] 1,000 ml Med 08/04/17 15:04 Active IV STAT Temazepam [Restoril] Med 08/04/17 10:56 Active 15 mg PO BEDTIME PRN Resuscitation Status Routine Resus Stat 08/04/17 10:56 Ordered Medication Orders Acetaminophen (Tylenol) 650 mg PO Q4H PRN PRN Reason: Pain (Mild 1-3)/fever Albuterol/Ipratropium (Duoneb 3.0-0.5 Mg/3 Ml) 3 ml NEB Q6HRRT PRN PRN Reason: SOB/Wheezing Bisacodyl (Dulcolax) 5 mg PO DAILY PRN PRN Reason: Constipation Docusate Sodium (Colace) 100 mg PO BID PRN PRN Reason: Constipation Enoxaparin Sodium (Lovenox) 40 mg SUBCUT DAILY [facility] Insulin Human Regular 100 unit (/ Sodium Chloride) 100 mls @ 7 mls/hr IV TITRATE RA PRN Reason: Protocol Last Admin: 08/04/17 10:54 Dose: 0.12 units/kg/hr, 7 mls/hr Sodium Chloride (Normal Saline) 1,000 mls @ 150 mls/hr IV ASDIRECTED RA Last Admin: 08/04/17 12:38 Dose: 150 mls/hr Sodium Chloride (Normal Saline) 1,000 mls @ 999 mls/hr IV STAT ONE Stop: 08/04/17 16:04 Nicotine (Habitrol) 21 mg TRDERM Q24H [facility] Last Admin: 08/04/17 14:10 Dose: 21 mg Ondansetron HCl (Zofran) 4 mg IVPUSH Q4H PRN PRN Reason: Nausea Sodium Chloride (Saline Flush) 10 ml FLUSH ASDIRECTED PRN PRN Reason: Keep Vein Open Last Admin: 08/04/17 09:33 Dose: 10 ml Sodium Chloride (Saline Flush) 2.5 ml FLUSH ASDIRECTED PRN PRN Reason: Keep Vein Open Last Admin: 08/04/17 09:33 Dose: 2.5 ml Temazepam (Restoril) 15 mg PO BEDTIME PRN PRN Reason: Sleep Assessment/Plan Comment:: 61-year-old female type I diabetic being admitted with diabetic ketoacidosis. #1. Diabetic ketoacidosis: -Patient currently on normal saline at 150 mL/hour. Patient also on insulin drip at 0.1 units/kilogram/hour. This will be titrated according to DKA protocol. Patient is currently receiving a second normal saline bolus. Once the patient's anion gap is closed and she is eating and her bicarbonate is normal, we can resume her home dose of Lantus which is 15 units daily and continue the insulin drip for 2 additional hours and then stop the insulin drip. -Hourly blood sugar checks are being done. BMP every 6 hours. CBC every 6 hours. White blood cell count is improving. Anion gap was previously 20 and has now improved to within normal limits at 10. Bicarbonate has improved to 17. -Patient's lactate was 3 and has improved to 2.2 with fluids. Another lactate will be drawn in 6 hours. -Patient is currently nothing by mouth. #2. Hypomagnesemia: -Magnesium on admission was 1.4. Patient did receive 2 g of magnesium IV. Recheck magnesium in the morning. DVT prophylaxis: Lovenox 40 mg daily. Disposition: 1-2 days pending improvement.
--- NOTE | 2017-08-04 19:47 | PCM.SN ---
- Free Text/Narrative Note: I reviewed lab and spoke with patient and family today. She reports recent "strep throat" exposure. She has been coughing decreased appetite Obj: alert; nad lungs : coarse rhonchi; frequent cough A: DKA with metabolic acidosis improved as manifested by closed anion gap bronchitis P: strep screen doxycycline close monitoring. Federico Rodrigues MD
[2017-08-04] MEDS: Doxycycline 100 MG in Sodium Chloride 0.9% 100 ML IV SCH (20:56)
[2017-08-04] MEDS ORDERED: Insulin Aspart 100 Units/ML 3 ML Pen SUBCUT SCH (21:15)
[2017-08-05] MEDS: Insulin Aspart 100 Units/ML 3 ML Pen SUBCUT SCH ×6 (00:37→21:41)
[2017-08-05] MEDS: Sodium Chloride 0.9% 1,000 ML IV SCH (04:48)
[2017-08-05] MEDS: Lisinopril 10 MG Tab PO SCH (08:18)
[2017-08-05] MEDS: Aspirin 81 MG Tab.Chew PO SCH (08:19)
[2017-08-05] MEDS: Enoxaparin 40 MG/0.4 ML Syringe SUBCUT SCH (08:19)
[2017-08-05] MEDS: Doxycycline 100 MG in Sodium Chloride 0.9% 100 ML IV SCH (08:50)
--- NOTE | 2017-08-05 11:09 | PCM.PN ---
- General Info Date of Service: 08/05/17 Subjective Update: 61F T1DM admitted to the ICU for DKA management. In the last 24 hours, patients anion gap has closed, she is off the insulin drip and on subcutaneous insulin. Last glucose reading was 158. She is currently able to eat. She was complaining of a cough for which she was started on doxycycline. Patient continues to complain of a productive cough for clear sputum. No fever, chills, nausea or vomiting currently. No other complaints. - Review of Systems General: Reports: No Symptoms HEENT: Reports: No Symptoms Pulmonary: Reports: Cough Cardiovascular: Reports: No Symptoms Gastrointestinal: Reports: No Symptoms Genitourinary: Reports: No Symptoms Musculoskeletal: Reports: No Symptoms Skin: Reports: No Symptoms Neurological: Reports: No Symptoms Psychiatric: Reports: No Symptoms - Patient Data Vitals - Most Recent: Last Vital Signs Temp 37.2 C 08/05/17 08:00 Pulse 88 08/04/17 11:24 Resp 15 08/05/17 09:00 BP 129/61 08/05/17 09:00 Pulse Ox 96 08/05/17 09:00 Weight - Most Recent: 58.2 kg I&O - Last 24 Hours: Intake & Output 08/04/17 08/05/17 08/05/17 22:59 06:59 14:59 Intake Total 2739 1100 Output Total 400 700 Balance 2339 400 Lab Results Last 24 Hours: Laboratory Results - last 24 hr 08/04/17 08/04/17 08/04/17 Range/Units 11:52 13:11 14:02 WBC 15.69 H (4.0-11.0) K/uL RBC 3.76 L (4.30-5.90) M/uL Hgb 11.8 L (12.0-16.0) g/dL Hct 34.5 L (36.0-46.0) % MCV 91.8 (80.0-98.0) fL MCH 31.4 (27.0-32.0) pg MCHC 34.2 (31.0-37.0) g/dL RDW Std Deviation 43.5 (28.0-62.0) fl RDW Coeff of Nicolasa 13 (11.0-15.0) % Plt Count 359 (150-400) K/uL MPV 9.00 (7.40-12.00) fL Neut % (Auto) (48.0-80.0) % Lymph % (Auto) (16.0-40.0) % [place] % (Auto) (0.0-15.0) % Eos % (Auto) (0.0-7.0) % Baso % (Auto) (0.0-1.5) % Neut # (Auto) (1.4-5.7) K/uL Lymph # (Auto) (0.6-2.4) K/uL [place] # (Auto) (0.0-0.8) K/uL Eos # (Auto) (0.0-0.7) K/uL Baso # (Auto) (0.0-0.1) K/uL Add Manual Diff YES Neutrophils % (Manual) 73 (48.0-80.0) % Band Neutrophils % 5 % Lymphocytes % (Manual) 13 L (16.0-40.0) % Monocytes % (Manual) 9 (0.0-15.0) % Nucleated RBC % 0.0 /100WBC Absolute Seg Neuts 11.5 H (1.4-5.7) Band Neutrophils # 0.8 Lymphocytes # (Manual) 2.0 (0.6-2.4) Monocytes # (Manual) 1.4 H (0.0-0.8) Nucleated RBCs # 0 K/uL Lactate (0.20-2.00) mmol/L Sodium (136-146) mmol/L Potassium (3.5-5.1) mmol/L Chloride (98-110) mmol/L Carbon Dioxide (21-31) mmol/L BUN (6.0-23.0) mg/dL Creatinine (0.6-1.5) mg/dL Est Cr Clr Drug Dosing mL/min Estimated GFR (MDRD) ml/min Glucose (60-110) mg/dL POC Glucose > 500 H 455 H (60-110) mg/dL Calcium (8.8-10.8) mg/dL Magnesium (1.5-2.3) mEq/L Triglycerides (10-190) mg/dL Cholesterol (131-240) mg/dL LDL Cholesterol, Calc (60-180) mg/dL VLDL Cholesterol (5-55) mg/dL HDL Cholesterol (40-80) mg/dL Cholesterol/HDL Ratio (3.3-6.0) Urine Color Urine Appearance Urine pH (5.0-8.0) Ur Specific [place] (1.001-1.035) Urine Protein (NEGATIVE) mg/dL Urine Glucose (UA) (NEGATIVE) mg/dL Urine Ketones (NEGATIVE) mg/dL Urine Occult Blood (NEGATIVE) Urine Nitrite (NEGATIVE) Urine Bilirubin (NEGATIVE) Urine Ictotest Urine Urobilinogen (<2.0) EU/dL Ur Leukocyte Esterase (NEGATIVE) Urine RBC (0-2/HPF) Urine WBC (0-5/HPF) Ur Epithelial Cells (NONE-FEW) Urine Bacteria (NEGATIVE) 08/04/17 08/04/17 08/04/17 Range/Units 14:02 14:02 14:04 WBC (4.0-11.0) K/uL RBC (4.30-5.90) M/uL Hgb (12.0-16.0) g/dL Hct (36.0-46.0) % MCV (80.0-98.0) fL MCH (27.0-32.0) pg MCHC (31.0-37.0) g/dL RDW Std Deviation (28.0-62.0) fl RDW Coeff of Nicolasa (11.0-15.0) % Plt Count (150-400) K/uL MPV (7.40-12.00) fL Neut % (Auto) (48.0-80.0) % Lymph % (Auto) (16.0-40.0) % [place] % (Auto) (0.0-15.0) % Eos % (Auto) (0.0-7.0) % Baso % (Auto) (0.0-1.5) % Neut # (Auto) (1.4-5.7) K/uL Lymph # (Auto) (0.6-2.4) K/uL [place] # (Auto) (0.0-0.8) K/uL Eos # (Auto) (0.0-0.7) K/uL Baso # (Auto) (0.0-0.1) K/uL Add Manual Diff Neutrophils % (Manual) (48.0-80.0) % Band Neutrophils % % Lymphocytes % (Manual) (16.0-40.0) % Monocytes % (Manual) (0.0-15.0) % Nucleated RBC % /100WBC Absolute Seg Neuts (1.4-5.7) Band Neutrophils # Lymphocytes # (Manual) (0.6-2.4) Monocytes # (Manual) (0.0-0.8) Nucleated RBCs # K/uL Lactate 2.2 H (0.20-2.00) mmol/L Sodium 126 L (136-146) mmol/L Potassium 4.0 (3.5-5.1) mmol/L Chloride 99 (98-110) mmol/L Carbon Dioxide 17 L (21-31) mmol/L BUN 59 H (6.0-23.0) mg/dL Creatinine 2.2 H (0.6-1.5) mg/dL Est Cr Clr Drug Dosing 23.39 mL/min Estimated GFR (MDRD) 22.5 ml/min Glucose 650 H* (60-110) mg/dL POC Glucose 478 H (60-110) mg/dL Calcium 7.3 L (8.8-10.8) mg/dL Magnesium (1.5-2.3) mEq/L Triglycerides (10-190) mg/dL Cholesterol (131-240) mg/dL LDL Cholesterol, Calc (60-180) mg/dL VLDL Cholesterol (5-55) mg/dL HDL Cholesterol (40-80) mg/dL Cholesterol/HDL Ratio (3.3-6.0) Urine Color Urine Appearance Urine pH (5.0-8.0) Ur Specific [place] (1.001-1.035) Urine Protein (NEGATIVE) mg/dL Urine Glucose (UA) (NEGATIVE) mg/dL Urine Ketones (NEGATIVE) mg/dL Urine Occult Blood (NEGATIVE) Urine Nitrite (NEGATIVE) Urine Bilirubin (NEGATIVE) Urine Ictotest Urine Urobilinogen (<2.0) EU/dL Ur Leukocyte Esterase (NEGATIVE) Urine RBC (0-2/HPF) Urine WBC (0-5/HPF) Ur Epithelial Cells (NONE-FEW) Urine Bacteria (NEGATIVE) 08/04/17 08/04/17 08/04/17 Range/Units 15:00 16:37 17:19 WBC (4.0-11.0) K/uL RBC (4.30-5.90) M/uL Hgb (12.0-16.0) g/dL Hct (36.0-46.0) % MCV (80.0-98.0) fL MCH (27.0-32.0) pg MCHC (31.0-37.0) g/dL RDW Std Deviation (28.0-62.0) fl RDW Coeff of Nicolasa (11.0-15.0) % Plt Count (150-400) K/uL MPV (7.40-12.00) fL Neut % (Auto) (48.0-80.0) % Lymph % (Auto) (16.0-40.0) % [place] % (Auto) (0.0-15.0) % Eos % (Auto) (0.0-7.0) % Baso % (Auto) (0.0-1.5) % Neut # (Auto) (1.4-5.7) K/uL Lymph # (Auto) (0.6-2.4) K/uL [place] # (Auto) (0.0-0.8) K/uL Eos # (Auto) (0.0-0.7) K/uL Baso # (Auto) (0.0-0.1) K/uL Add Manual Diff Neutrophils % (Manual) (48.0-80.0) % Band Neutrophils % % Lymphocytes % (Manual) (16.0-40.0) % Monocytes % (Manual) (0.0-15.0) % Nucleated RBC % /100WBC Absolute Seg Neuts (1.4-5.7) Band Neutrophils # Lymphocytes # (Manual) (0.6-2.4) Monocytes # (Manual) (0.0-0.8) Nucleated RBCs # K/uL Lactate (0.20-2.00) mmol/L Sodium (136-146) mmol/L Potassium (3.5-5.1) mmol/L Chloride (98-110) mmol/L Carbon Dioxide (21-31) mmol/L BUN (6.0-23.0) mg/dL Creatinine (0.6-1.5) mg/dL Est Cr Clr Drug Dosing mL/min Estimated GFR (MDRD) ml/min Glucose (60-110) mg/dL POC Glucose 439 H 342 H 309 H (60-110) mg/dL Calcium (8.8-10.8) mg/dL Magnesium (1.5-2.3) mEq/L Triglycerides (10-190) mg/dL Cholesterol (131-240) mg/dL LDL Cholesterol, Calc (60-180) mg/dL VLDL Cholesterol (5-55) mg/dL HDL Cholesterol (40-80) mg/dL Cholesterol/HDL Ratio (3.3-6.0) Urine Color Urine Appearance Urine pH (5.0-8.0) Ur Specific [place] (1.001-1.035) Urine Protein (NEGATIVE) mg/dL Urine Glucose (UA) (NEGATIVE) mg/dL Urine Ketones (NEGATIVE) mg/dL Urine Occult Blood (NEGATIVE) Urine Nitrite (NEGATIVE) Urine Bilirubin (NEGATIVE) Urine Ictotest Urine Urobilinogen (<2.0) EU/dL Ur Leukocyte Esterase (NEGATIVE) Urine RBC (0-2/HPF) Urine WBC (0-5/HPF) Ur Epithelial Cells (NONE-FEW) Urine Bacteria (NEGATIVE) 08/04/17 08/04/17 08/04/17 Range/Units 18:05 18:59 20:00 WBC (4.0-11.0) K/uL RBC (4.30-5.90) M/uL Hgb (12.0-16.0) g/dL Hct (36.0-46.0) % MCV (80.0-98.0) fL MCH (27.0-32.0) pg MCHC (31.0-37.0) g/dL RDW Std Deviation (28.0-62.0) fl RDW Coeff of Nicolasa (11.0-15.0) % Plt Count (150-400) K/uL MPV (7.40-12.00) fL Neut % (Auto) (48.0-80.0) % Lymph % (Auto) (16.0-40.0) % [place] % (Auto) (0.0-15.0) % Eos % (Auto) (0.0-7.0) % Baso % (Auto) (0.0-1.5) % Neut # (Auto) (1.4-5.7) K/uL Lymph # (Auto) (0.6-2.4) K/uL [place] # (Auto) (0.0-0.8) K/uL Eos # (Auto) (0.0-0.7) K/uL Baso # (Auto) (0.0-0.1) K/uL Add Manual Diff Neutrophils % (Manual) (48.0-80.0) % Band Neutrophils % % Lymphocytes % (Manual) (16.0-40.0) % Monocytes % (Manual) (0.0-15.0) % Nucleated RBC % /100WBC Absolute Seg Neuts (1.4-5.7) Band Neutrophils # Lymphocytes # (Manual) (0.6-2.4) Monocytes # (Manual) (0.0-0.8) Nucleated RBCs # K/uL Lactate (0.20-2.00) mmol/L Sodium (136-146) mmol/L Potassium (3.5-5.1) mmol/L Chloride (98-110) mmol/L Carbon Dioxide (21-31) mmol/L BUN (6.0-23.0) mg/dL Creatinine (0.6-1.5) mg/dL Est Cr Clr Drug Dosing mL/min Estimated GFR (MDRD) ml/min Glucose (60-110) mg/dL POC Glucose 311 H 265 H 203 H (60-110) mg/dL Calcium (8.8-10.8) mg/dL Magnesium (1.5-2.3) mEq/L Triglycerides (10-190) mg/dL Cholesterol (131-240) mg/dL LDL Cholesterol, Calc (60-180) mg/dL VLDL Cholesterol (5-55) mg/dL HDL Cholesterol (40-80) mg/dL Cholesterol/HDL Ratio (3.3-6.0) Urine Color Urine Appearance Urine pH (5.0-8.0) Ur Specific [place] (1.001-1.035) Urine Protein (NEGATIVE) mg/dL Urine Glucose (UA) (NEGATIVE) mg/dL Urine Ketones (NEGATIVE) mg/dL Urine Occult Blood (NEGATIVE) Urine Nitrite (NEGATIVE) Urine Bilirubin (NEGATIVE) Urine Ictotest Urine Urobilinogen (<2.0) EU/dL Ur Leukocyte Esterase (NEGATIVE) Urine RBC (0-2/HPF) Urine WBC (0-5/HPF) Ur Epithelial Cells (NONE-FEW) Urine Bacteria (NEGATIVE) 08/04/17 08/04/17 08/04/17 Range/Units 20:01 20:01 20:01 WBC 14.72 H (4.0-11.0) K/uL RBC 3.77 L (4.30-5.90) M/uL Hgb 12.0 (12.0-16.0) g/dL Hct 34.0 L (36.0-46.0) % MCV 90.2 (80.0-98.0) fL MCH 31.8 (27.0-32.0) pg MCHC 35.3 (31.0-37.0) g/dL RDW Std Deviation 42.2 (28.0-62.0) fl RDW Coeff of Nicolasa 13 (11.0-15.0) % Plt Count 365 (150-400) K/uL MPV 9.00 (7.40-12.00) fL Neut % (Auto) 78.1 (48.0-80.0) % Lymph % (Auto) 10.7 L (16.0-40.0) % [place] % (Auto) 10.9 (0.0-15.0) % Eos % (Auto) 0.2 (0.0-7.0) % Baso % (Auto) 0.1 (0.0-1.5) % Neut # (Auto) 11.5 H (1.4-5.7) K/uL Lymph # (Auto) 1.6 (0.6-2.4) K/uL [place] # (Auto) 1.6 H (0.0-0.8) K/uL Eos # (Auto) 0.0 (0.0-0.7) K/uL Baso # (Auto) 0.0 (0.0-0.1) K/uL Add Manual Diff Neutrophils % (Manual) (48.0-80.0) % Band Neutrophils % % Lymphocytes % (Manual) (16.0-40.0) % Monocytes % (Manual) (0.0-15.0) % Nucleated RBC % 0.0 /100WBC Absolute Seg Neuts (1.4-5.7) Band Neutrophils # Lymphocytes # (Manual) (0.6-2.4) Monocytes # (Manual) (0.0-0.8) Nucleated RBCs # 0 K/uL Lactate 1.6 (0.20-2.00) mmol/L Sodium 131 L (136-146) mmol/L Potassium 3.5 (3.5-5.1) mmol/L Chloride 105 (98-110) mmol/L Carbon Dioxide 19 L (21-31) mmol/L BUN 57 H (6.0-23.0) mg/dL Creatinine 1.8 H (0.6-1.5) mg/dL Est Cr Clr Drug Dosing 28.58 mL/min Estimated GFR (MDRD) 28.4 ml/min Glucose 212 H (60-110) mg/dL POC Glucose (60-110) mg/dL Calcium 7.4 L (8.8-10.8) mg/dL Magnesium (1.5-2.3) mEq/L Triglycerides (10-190) mg/dL Cholesterol (131-240) mg/dL LDL Cholesterol, Calc (60-180) mg/dL VLDL Cholesterol (5-55) mg/dL HDL Cholesterol (40-80) mg/dL Cholesterol/HDL Ratio (3.3-6.0) Urine Color Urine Appearance Urine pH (5.0-8.0) Ur Specific [place] (1.001-1.035) Urine Protein (NEGATIVE) mg/dL Urine Glucose (UA) (NEGATIVE) mg/dL Urine Ketones (NEGATIVE) mg/dL Urine Occult Blood (NEGATIVE) Urine Nitrite (NEGATIVE) Urine Bilirubin (NEGATIVE) Urine Ictotest Urine Urobilinogen (<2.0) EU/dL Ur Leukocyte Esterase (NEGATIVE) Urine RBC (0-2/HPF) Urine WBC (0-5/HPF) Ur Epithelial Cells (NONE-FEW) Urine Bacteria (NEGATIVE) 08/04/17 08/04/17 08/05/17 Range/Units 21:02 22:30 00:23 WBC (4.0-11.0) K/uL RBC (4.30-5.90) M/uL Hgb (12.0-16.0) g/dL Hct (36.0-46.0) % MCV (80.0-98.0) fL MCH (27.0-32.0) pg MCHC (31.0-37.0) g/dL RDW Std Deviation (28.0-62.0) fl RDW Coeff of Nicolasa (11.0-15.0) % Plt Count (150-400) K/uL MPV (7.40-12.00) fL Neut % (Auto) (48.0-80.0) % Lymph % (Auto) (16.0-40.0) % [place] % (Auto) (0.0-15.0) % Eos % (Auto) (0.0-7.0) % Baso % (Auto) (0.0-1.5) % Neut # (Auto) (1.4-5.7) K/uL Lymph # (Auto) (0.6-2.4) K/uL [place] # (Auto) (0.0-0.8) K/uL Eos # (Auto) (0.0-0.7) K/uL Baso # (Auto) (0.0-0.1) K/uL Add Manual Diff Neutrophils % (Manual) (48.0-80.0) % Band Neutrophils % % Lymphocytes % (Manual) (16.0-40.0) % Monocytes % (Manual) (0.0-15.0) % Nucleated RBC % /100WBC Absolute Seg Neuts (1.4-5.7) Band Neutrophils # Lymphocytes # (Manual) (0.6-2.4) Monocytes # (Manual) (0.0-0.8) Nucleated RBCs # K/uL Lactate (0.20-2.00) mmol/L Sodium (136-146) mmol/L Potassium (3.5-5.1) mmol/L Chloride (98-110) mmol/L Carbon Dioxide (21-31) mmol/L BUN (6.0-23.0) mg/dL Creatinine (0.6-1.5) mg/dL Est Cr Clr Drug Dosing mL/min Estimated GFR (MDRD) ml/min Glucose (60-110) mg/dL POC Glucose 194 H 176 H (60-110) mg/dL Calcium (8.8-10.8) mg/dL Magnesium (1.5-2.3) mEq/L Triglycerides (10-190) mg/dL Cholesterol (131-240) mg/dL LDL Cholesterol, Calc (60-180) mg/dL VLDL Cholesterol (5-55) mg/dL HDL Cholesterol (40-80) mg/dL Cholesterol/HDL Ratio (3.3-6.0) Urine Color YELLOW Urine Appearance SLT CLOUDY Urine pH 5.5 (5.0-8.0) Ur Specific [place] >= 1.030 (1.001-1.035) Urine Protein 100 (NEGATIVE) mg/dL Urine Glucose (UA) >=1000 (NEGATIVE) mg/dL Urine Ketones NEGATIVE (NEGATIVE) mg/dL Urine Occult Blood SMALL H (NEGATIVE) Urine Nitrite NEGATIVE (NEGATIVE) Urine Bilirubin SMALL H (NEGATIVE) Urine Ictotest NEGATIVE Urine Urobilinogen 0.2 (<2.0) EU/dL Ur Leukocyte Esterase NEGATIVE (NEGATIVE) Urine RBC 0-2 (0-2/HPF) Urine WBC 2-5 (0-5/HPF) Ur Epithelial Cells FEW (NONE-FEW) Urine Bacteria FEW (NEGATIVE) 08/05/17 08/05/17 08/05/17 Range/Units 04:08 05:21 05:21 WBC 14.01 H (4.0-11.0) K/uL RBC 3.61 L (4.30-5.90) M/uL Hgb 11.4 L (12.0-16.0) g/dL Hct 33.0 L (36.0-46.0) % MCV 91.4 (80.0-98.0) fL MCH 31.6 (27.0-32.0) pg MCHC 34.5 (31.0-37.0) g/dL RDW Std Deviation 43.7 (28.0-62.0) fl RDW Coeff of [place]a 13 (11.0-15.0) % Plt Count 336 (150-400) K/uL MPV 8.90 (7.40-12.00) fL Neut % (Auto) 77.0 (48.0-80.0) % Lymph % (Auto) 11.1 L (16.0-40.0) % [place] % (Auto) 11.1 (0.0-15.0) % Eos % (Auto) 0.7 (0.0-7.0) % Baso % (Auto) 0.1 (0.0-1.5) % Neut # (Auto) 10.8 H (1.4-5.7) K/uL Lymph # (Auto) 1.6 (0.6-2.4) K/uL [place] # (Auto) 1.6 H (0.0-0.8) K/uL Eos # (Auto) 0.1 (0.0-0.7) K/uL Baso # (Auto) 0.0 (0.0-0.1) K/uL Add Manual Diff Neutrophils % (Manual) (48.0-80.0) % Band Neutrophils % % Lymphocytes % (Manual) (16.0-40.0) % Monocytes % (Manual) (0.0-15.0) % Nucleated RBC % 0.0 /100WBC Absolute Seg Neuts (1.4-5.7) Band Neutrophils # Lymphocytes # (Manual) (0.6-2.4) Monocytes # (Manual) (0.0-0.8) Nucleated RBCs # 0 K/uL Lactate (0.20-2.00) mmol/L Sodium 132 L (136-146) mmol/L Potassium 3.6 (3.5-5.1) mmol/L Chloride 108 (98-110) mmol/L Carbon Dioxide 16 L (21-31) mmol/L BUN 54 H (6.0-23.0) mg/dL Creatinine 1.6 H (0.6-1.5) mg/dL Est Cr Clr Drug Dosing 32.33 mL/min Estimated GFR (MDRD) 32.6 ml/min Glucose 237 H (60-110) mg/dL POC Glucose 206 H (60-110) mg/dL Calcium 7.4 L (8.8-10.8) mg/dL Magnesium 1.6 (1.5-2.3) mEq/L Triglycerides 82 (10-190) mg/dL Cholesterol 231 (131-240) mg/dL LDL Cholesterol, Calc 168 (60-180) mg/dL VLDL Cholesterol 16 (5-55) mg/dL HDL Cholesterol 47 (40-80) mg/dL Cholesterol/HDL Ratio 4.9 (3.3-6.0) Urine Color Urine Appearance Urine pH (5.0-8.0) Ur Specific [place] (1.001-1.035) Urine Protein (NEGATIVE) mg/dL Urine Glucose (UA) (NEGATIVE) mg/dL Urine Ketones (NEGATIVE) mg/dL Urine Occult Blood (NEGATIVE) Urine Nitrite (NEGATIVE) Urine Bilirubin (NEGATIVE) Urine Ictotest Urine Urobilinogen (<2.0) EU/dL Ur Leukocyte Esterase (NEGATIVE) Urine RBC (0-2/HPF) Urine WBC (0-5/HPF) Ur Epithelial Cells (NONE-FEW) Urine Bacteria (NEGATIVE) 08/05/17 Range/Units 07:28 WBC (4.0-11.0) K/uL RBC (4.30-5.90) M/uL Hgb (12.0-16.0) g/dL Hct (36.0-46.0) % MCV (80.0-98.0) fL MCH (27.0-32.0) pg MCHC (31.0-37.0) g/dL RDW Std Deviation (28.0-62.0) fl RDW Coeff of Nicolasa (11.0-15.0) % Plt Count (150-400) K/uL MPV (7.40-12.00) fL Neut % (Auto) (48.0-80.0) % Lymph % (Auto) (16.0-40.0) % [place] % (Auto) (0.0-15.0) % Eos % (Auto) (0.0-7.0) % Baso % (Auto) (0.0-1.5) % Neut # (Auto) (1.4-5.7) K/uL Lymph # (Auto) (0.6-2.4) K/uL [place] # (Auto) (0.0-0.8) K/uL Eos # (Auto) (0.0-0.7) K/uL Baso # (Auto) (0.0-0.1) K/uL Add Manual Diff Neutrophils % (Manual) (48.0-80.0) % Band Neutrophils % % Lymphocytes % (Manual) (16.0-40.0) % Monocytes % (Manual) (0.0-15.0) % Nucleated RBC % /100WBC Absolute Seg Neuts (1.4-5.7) Band Neutrophils # Lymphocytes # (Manual) (0.6-2.4) Monocytes # (Manual) (0.0-0.8) Nucleated RBCs # K/uL Lactate (0.20-2.00) mmol/L Sodium (136-146) mmol/L Potassium (3.5-5.1) mmol/L Chloride (98-110) mmol/L Carbon Dioxide (21-31) mmol/L BUN (6.0-23.0) mg/dL Creatinine (0.6-1.5) mg/dL Est Cr Clr Drug Dosing mL/min Estimated GFR (MDRD) ml/min Glucose (60-110) mg/dL POC Glucose 158 H (60-110) mg/dL Calcium (8.8-10.8) mg/dL Magnesium (1.5-2.3) mEq/L Triglycerides (10-190) mg/dL Cholesterol (131-240) mg/dL LDL Cholesterol, Calc (60-180) mg/dL VLDL Cholesterol (5-55) mg/dL HDL Cholesterol (40-80) mg/dL Cholesterol/HDL Ratio (3.3-6.0) Urine Color Urine Appearance Urine pH (5.0-8.0) Ur Specific [place] (1.001-1.035) Urine Protein (NEGATIVE) mg/dL Urine Glucose (UA) (NEGATIVE) mg/dL Urine Ketones (NEGATIVE) mg/dL Urine Occult Blood (NEGATIVE) Urine Nitrite (NEGATIVE) Urine Bilirubin (NEGATIVE) Urine Ictotest Urine Urobilinogen (<2.0) EU/dL Ur Leukocyte Esterase (NEGATIVE) Urine RBC (0-2/HPF) Urine WBC (0-5/HPF) Ur Epithelial Cells (NONE-FEW) Urine Bacteria (NEGATIVE) [place] Results Last 24 Hours: Microbiology 08/04/17 20:01 Group A Streptococcus Rapid Screen - Final Throat NEGATIVE STREP A SCREEN Med Orders - Current: Current Medications Acetaminophen (Tylenol) 650 mg PO Q4H PRN PRN Reason: Pain (Mild 1-3)/fever Last Admin: 08/05/17 03:58 Dose: 650 mg Albuterol/Ipratropium (Duoneb 3.0-0.5 Mg/3 Ml) 3 ml NEB Q6HRRT PRN PRN Reason: SOB/Wheezing Aspirin (Aspirin) 81 mg PO DAILY [facility] Last Admin: 08/05/17 08:19 Dose: 81 mg Bisacodyl (Dulcolax) 5 mg PO DAILY PRN PRN Reason: Constipation Docusate Sodium (Colace) 100 mg PO BID PRN PRN Reason: Constipation Enoxaparin Sodium (Lovenox) 40 mg SUBCUT DAILY [facility] Last Admin: 08/05/17 08:19 Dose: 40 mg Sodium Chloride (Normal Saline) 1,000 mls @ 150 mls/hr IV ASDIRECTED [facility] Last Admin: 08/05/17 04:48 Dose: 150 mls/hr Doxycycline Hyclate 100 mg/ (Sodium Chloride) 100 mls @ 100 mls/hr IV Q12H [facility] Last Admin: 08/05/17 08:50 Dose: 100 mls/hr Insulin Aspart (Novolog) 0 unit SUBCUT Q4H RA PRN Reason: Protocol Last Admin: 08/05/17 07:39 Dose: 2 unit Lisinopril (Prinivil) 10 mg PO DAILY [facility] Last Admin: 08/05/17 08:18 Dose: 10 mg Nicotine (Habitrol) 21 mg TRDERM Q24H [facility] Last Admin: 08/04/17 14:10 Dose: 21 mg Ondansetron HCl (Zofran) 4 mg IVPUSH Q4H PRN PRN Reason: Nausea Sodium Chloride (Saline Flush) 10 ml FLUSH ASDIRECTED PRN PRN Reason: Keep Vein Open Last Admin: 08/04/17 09:33 Dose: 10 ml Sodium Chloride (Saline Flush) 2.5 ml FLUSH ASDIRECTED PRN PRN Reason: Keep Vein Open Last Admin: 08/04/17 09:33 Dose: 2.5 ml Temazepam (Restoril) 15 mg PO BEDTIME PRN PRN Reason: Sleep Discontinued Medications Albuterol/Ipratropium (Duoneb 3.0-0.5 Mg/3 Ml) 3 ml NEB Q6HRRT [facility] Last Admin: 08/04/17 13:44 Dose: Not Given Sodium Chloride (Normal Saline) 1,000 mls @ 999 mls/hr IV .Bolus ONE Stop: 08/04/17 10:11 Last Admin: 08/04/17 09:33 Dose: 999 mls/hr Insulin Human Regular 100 unit (/ Sodium Chloride) 100 mls @ 7 mls/hr IV TITRATE [facility] PRN Reason: Protocol Last Titration: 08/04/17 20:05 Dose: 0.05 units/kg/hr, 3 mls/hr Sodium Chloride (Normal Saline) 1,000 mls @ 125 mls/hr IV ASDIRECTED [facility] Last Admin: 08/04/17 10:56 Dose: 125 mls/hr Sodium Chloride (Normal Saline) 1,000 mls @ 999 mls/hr IV .Bolus ONE Stop: 08/04/17 13:00 Last Admin: 08/04/17 12:04 Dose: 999 mls/hr Magnesium Sulfate 2 gm/ Premix 50 mls @ 50 mls/hr IV ONETIME ONE Stop: 08/04/17 14:36 Last Admin: 08/04/17 14:11 Dose: 50 mls/hr Sodium Chloride (Normal Saline) 1,000 mls @ 999 mls/hr IV STAT ONE Stop: 08/04/17 16:04 Last Admin: 08/04/17 15:16 Dose: 999 mls/hr Magnesium Sulfate 2 gm/ Premix 50 mls @ 25 mls/hr IV ONETIME ONE Stop: 08/04/17 21:22 Last Admin: 08/04/17 20:20 Dose: Not Given Insulin Aspart (Novolog) 0 unit SUBCUT ACBED RA PRN Reason: Protocol Last Admin: 08/04/17 21:28 Dose: 2 units - Exam General: Alert, Oriented, Cooperative, No Acute Distress HEENT: Pupils Equal, Pupils Reactive, EOMI Neck: Supple Lungs: Clear to Auscultation, Normal Respiratory Effort Cardiovascular: Regular Rate, Regular Rhythm GI/Abdominal Exam: Normal Bowel Sounds, Soft, Non-Tender Extremities: Normal Inspection, No Pedal Edema Peripheral Pulses: 2+: Dorsalis Pedis (L), Dorsalis Pedis (R) Skin: Warm, Intact Neurological: No New Focal Deficit Psy/Mental Status: Alert, Normal Affect, Normal Mood - Problem List Review Problem List Initiated/Reviewed/Updated: Yes - My Orders Last 24 Hours: My Active Orders 08/05/17 09:10 Consult to Public Services Librarian [Consult to Diabetic Nurse Specialist] [CONS] Routine - Assessment Assessment:: 1. Diabetic Ketoacidosis - improving 2. Hyperglycemia 3. Productive cough with normal CXR 4. History of T1DM 5. History of tobacco dependence - Plan Plan:: 61-year-old female type I diabetic being admitted with diabetic ketoacidosis. #1. Diabetic ketoacidosis: - Patient is currently off the insulin drip and on to a sliding scale. Patient is tolerating PO. Bicarb has normalized. We'll get a repeat BMP at noon. She can switch over to her regular insulin regimen tomorrow AM. She will meet with diabetic education today. Transfer to regular floor. Stop IV fluids. #2. Productive Cough - Currently on doxycycline, benign physical exam and chest xray; negative strep screen; we'll continue management as is.
[2017-08-05] MEDS: Nicotine 21 MG/24 Hr Patch TRDERM SCH (15:10)
[2017-08-05] MEDS ORDERED: Furosemide 40 MG/4 ML VIAL IVPUSH ONE (20:08)
[2017-08-05] MEDS: Doxycycline 100 MG Cap PO SCH (21:32)
[2017-08-06] MEDS: Insulin Aspart 100 Units/ML 3 ML Pen SUBCUT SCH ×4 (00:54→09:00)
[2017-08-06] MEDS ORDERED: Magnesium Sulfate/Water 2 GM in Premix Bag 1 BAG IV ONE (08:10)
[2017-08-06] MEDS: Doxycycline 100 MG Cap PO SCH (08:57)
[2017-08-06] MEDS: Lisinopril 10 MG Tab PO SCH (08:58)
[2017-08-06] MEDS: Aspirin 81 MG Tab.Chew PO SCH (08:58)
[2017-08-06] MEDS: Enoxaparin 40 MG/0.4 ML Syringe SUBCUT SCH (08:59)
[2017-08-06] MEDS ORDERED: Insulin Glargine,Human Rec. Analog 100 Units/ML 3 ML Pen SUBCUT SCH (10:30)
[2017-08-06 11:34] VITALS: BP 110/53
--- NOTE | 2017-08-06 12:18 | PCM.DCSUM1 ---
Discharge Summary - Hospital Course Free Text/Narrative:: Admission date August 04, 2017 discharge date August 06, 2017 Admission diagnosis: Diabetic ketoacidosis Hypomagnesemia History of hypertension History of type 1 diabetes History of tobacco use Discharge diagnosis Diabetic ketoacidosis-resolved Hypomagnesemia resolved History of hypertension, type 1 diabetes, tobacco use Hospital course: This is a 61-year-old female with a history of very poorly controlled type 1 diabetes mellitus who presents to the emergency department on 04 August with generalized weakness and was found to have a blood sugar in the 800s along with an elevated anion gap and a low bicarbonate. Patient then ultimately admitted to the ICU placed on insulin drip and was quickly transitioned over to subcutaneous insulin as her gap closed. Patient tolerated by mouth food quite quickly. She did begin to complain of a cough, with a negative strep screen. She is started on by mouth doxycycline for this. Chest x- ray was negative. She is found to be hypomagnesemic and magnesium was given IV. She did not have any other symptoms such as fevers chills shortness of breath. She was then met with diabetic education to further mitochondrial disorders counselor the patient on management. She was advised that a insulin pump may be used in the near future for her. After being transferred to the regular floor, patient has observed and was noted to be doing very well at the time of discharge. She has no complaints and was independent, and eating without any difficulty. Follow-up: Patient is to follow-up with her primary care provider Carla Kingston within one week along with diabetic education. Return precautions: Patient is advised to continue with insulin management as counseled by diabetes education. Patient is advised to return to seek further care if she experiences any headaches, weakness nausea or vomiting or extremely low or high blood sugars. - Discharge Data Discharge Date: 08/06/17 Discharge Disposition: Home, Self-Care 01 Condition: Stable - Patient Summary/Data Consults: Consultations 08/05/17 09:10 Consult to Cheese Maker [Consult to Diabetic Nurse Specialist] [CONS] Routine - Patient Instructions Diet: Diabetic Diet Driving: May Drive Today Showering/Bathing: May Shower Notify Provider of: Fever, Nausea and/or Vomiting - Discharge Plan Prescriptions/Med Rec: Insulin Glarg,Human.Rec.Analog [LantUS Solostar] 15 units SUBCUT DAILY 30 Days # 1 package Home Medications: Home Meds Insulin Lispro [HumaLOG] 1 unit SQ ACBED 10/24/14 [History] Aspirin [Ecotrin] 325 mg PO DAILY 07/13/17 [History] Lisinopril [Prinivil] 10 mg PO DAILY #30 tablet 07/14/17 [Rx] Insulin Glarg,Human.Rec.Analog [LantUS Solostar] 15 units SUBCUT DAILY 30 Days # 1 package 08/06/17 [Rx] Nicotine [Habitrol] 21 mg TRDERM Q24H patch 08/06/17 [Rx] Patient Handouts: Diabetic Ketoacidosis, Insulin Glargine injection Referrals: Selina Kingston NP [Primary Care Provider] - 08/18/17 1:30 pm - Discharge Summary/Plan Comment DC Time >30 min.: No Discharge Summary/Plan Comment: Admission date August 04, 2017 discharge date August 06, 2017 Admission diagnosis: Diabetic ketoacidosis Hypomagnesemia History of hypertension History of type 1 diabetes History of tobacco use Discharge diagnosis Diabetic ketoacidosis-resolved Hypomagnesemia resolved History of hypertension, type 1 diabetes, tobacco use Hospital course: This is a 61-year-old female with a history of very poorly controlled type 1 diabetes mellitus who presents to the emergency department on 04 August with generalized weakness and was found to have a blood sugar in the 800s along with an elevated anion gap and a low bicarbonate. Patient then ultimately admitted to the ICU placed on insulin drip and was quickly transitioned over to subcutaneous insulin as her gap closed. Patient tolerated by mouth food quite quickly. She did begin to complain of a cough, with a negative strep screen. She is started on by mouth doxycycline for this. Chest x- ray was negative. She is found to be hypomagnesemic and magnesium was given IV. She did not have any other symptoms such as fevers chills shortness of breath. She was then met with diabetic education to further mitochondrial disorders counselor the patient on management. She was advised that a insulin pump may be used in the near future for her. After being transferred to the regular floor, patient has observed and was noted to be doing very well at the time of discharge. She has no complaints and was independent, and eating without any difficulty. Follow-up: Patient is to follow-up with her primary care provider Carla Kingston within one week along with diabetic education. Return precautions: Patient is advised to continue with insulin management as counseled by diabetes education. Patient is advised to return to seek further care if she experiences any headaches, weakness nausea or vomiting or extremely low or high blood sugars. - Patient Data Vitals - Most Recent: Last Vital Signs Temp 36.4 C 08/06/17 11:31 Pulse 102 H 08/06/17 11:31 Resp 17 08/06/17 11:31 BP 110/53 L 08/06/17 11:31 Pulse Ox 98 08/06/17 11:31 Weight - Most Recent: 54.431 kg I&O - Last 24 hours: Intake & Output 08/05/17 08/06/17 08/06/17 22:59 06:59 14:59 Intake Total 540 480 50 Output Total 1800 Balance 540 -1320 50 Lab Results - Last 24 hrs: Laboratory Results - last 24 hr 08/05/17 08/05/17 08/05/17 Range/Units 11:59 15:47 21:31 WBC (4.0-11.0) K/uL RBC (4.30-5.90) M/uL Hgb (12.0-16.0) g/dL Hct (36.0-46.0) % MCV (80.0-98.0) fL MCH (27.0-32.0) pg MCHC (31.0-37.0) g/dL RDW Std Deviation (28.0-62.0) fl RDW Coeff of Nicolasa (11.0-15.0) % Plt Count (150-400) K/uL MPV (7.40-12.00) fL Neut % (Auto) (48.0-80.0) % Lymph % (Auto) (16.0-40.0) % [place] % (Auto) (0.0-15.0) % Eos % (Auto) (0.0-7.0) % Baso % (Auto) (0.0-1.5) % Neut # (Auto) (1.4-5.7) K/uL Lymph # (Auto) (0.6-2.4) K/uL [place] # (Auto) (0.0-0.8) K/uL Eos # (Auto) (0.0-0.7) K/uL Baso # (Auto) (0.0-0.1) K/uL Nucleated RBC % /100WBC Nucleated RBCs # K/uL Sodium (136-146) mmol/L Potassium (3.5-5.1) mmol/L Chloride (98-110) mmol/L Carbon Dioxide (21-31) mmol/L BUN (6.0-23.0) mg/dL Creatinine (0.6-1.5) mg/dL Est Cr Clr Drug Dosing mL/min Estimated GFR (MDRD) ml/min Glucose (60-110) mg/dL POC Glucose 222 H 312 H 313 H (60-110) mg/dL Calcium (8.8-10.8) mg/dL Magnesium (1.5-2.3) mEq/L 08/06/17 08/06/17 08/06/17 Range/Units 00:44 04:38 04:51 WBC 11.15 H (4.0-11.0) K/uL RBC 4.04 L (4.30-5.90) M/uL Hgb 12.8 (12.0-16.0) g/dL Hct 37.3 (36.0-46.0) % MCV 92.3 (80.0-98.0) fL MCH 31.7 (27.0-32.0) pg MCHC 34.3 (31.0-37.0) g/dL RDW Std Deviation 44.0 (28.0-62.0) fl RDW Coeff of Nicolasa 13 (11.0-15.0) % Plt Count 339 (150-400) K/uL MPV 9.20 (7.40-12.00) fL Neut % (Auto) 76.1 (48.0-80.0) % Lymph % (Auto) 13.1 L (16.0-40.0) % [place] % (Auto) 10.3 (0.0-15.0) % Eos % (Auto) 0.4 (0.0-7.0) % Baso % (Auto) 0.1 (0.0-1.5) % Neut # (Auto) 8.5 H (1.4-5.7) K/uL Lymph # (Auto) 1.5 (0.6-2.4) K/uL [place] # (Auto) 1.2 H (0.0-0.8) K/uL Eos # (Auto) 0.1 (0.0-0.7) K/uL Baso # (Auto) 0.0 (0.0-0.1) K/uL Nucleated RBC % 0.0 /100WBC Nucleated RBCs # 0 K/uL Sodium (136-146) mmol/L Potassium (3.5-5.1) mmol/L Chloride (98-110) mmol/L Carbon Dioxide (21-31) mmol/L BUN (6.0-23.0) mg/dL Creatinine (0.6-1.5) mg/dL Est Cr Clr Drug Dosing mL/min Estimated GFR (MDRD) ml/min Glucose (60-110) mg/dL POC Glucose 186 H 314 H (60-110) mg/dL Calcium (8.8-10.8) mg/dL Magnesium (1.5-2.3) mEq/L 08/06/17 08/06/17 Range/Units 04:51 08:40 WBC (4.0-11.0) K/uL RBC (4.30-5.90) M/uL Hgb (12.0-16.0) g/dL Hct (36.0-46.0) % MCV (80.0-98.0) fL MCH (27.0-32.0) pg MCHC (31.0-37.0) g/dL RDW Std Deviation (28.0-62.0) fl RDW Coeff of Nicolasa (11.0-15.0) % Plt Count (150-400) K/uL MPV (7.40-12.00) fL Neut % (Auto) (48.0-80.0) % Lymph % (Auto) (16.0-40.0) % [place] % (Auto) (0.0-15.0) % Eos % (Auto) (0.0-7.0) % Baso % (Auto) (0.0-1.5) % Neut # (Auto) (1.4-5.7) K/uL Lymph # (Auto) (0.6-2.4) K/uL [place] # (Auto) (0.0-0.8) K/uL Eos # (Auto) (0.0-0.7) K/uL Baso # (Auto) (0.0-0.1) K/uL Nucleated RBC % /100WBC Nucleated RBCs # K/uL Sodium 133 L (136-146) mmol/L Potassium 4.3 (3.5-5.1) mmol/L Chloride 105 (98-110) mmol/L Carbon Dioxide 15 L (21-31) mmol/L BUN 42 H (6.0-23.0) mg/dL Creatinine 1.4 (0.6-1.5) mg/dL Est Cr Clr Drug Dosing 35.34 mL/min Estimated GFR (MDRD) 38.0 ml/min Glucose 388 H (60-110) mg/dL POC Glucose 362 H (60-110) mg/dL Calcium 8.0 L (8.8-10.8) mg/dL Magnesium 1.1 L (1.5-2.3) mEq/L NAKITA Results - Last 24 hrs: Microbiology 08/04/17 20:01 Quick Strep Confirmation Culture - Final Throat NO GROUP A STREP ISOLATED Group A Streptococcus Rapid Screen - Final NEGATIVE STREP A SCREEN 08/05/17 10:25 Clostridium difficile Toxin A&B (M) - Final Stool / Feces Negative for C.Diff Toxin/AG 08/05/17 10:25 Campylobacter Antigen Assay - Preliminary Stool / Feces NEGATIVE CAMPYLOBACTER AG - Final NEGATIVE FOR SHIGA TOXIN 1 - Final NEGATIVE FOR SHIGA TOXIN 2 08/05/17 10:25 Stool for WBCs - Final Stool / Feces POSITIVE FOR WBC'S Med Orders - Current: Current Medications Acetaminophen (Tylenol) 650 mg PO Q4H PRN PRN Reason: Pain (Mild 1-3)/fever Last Admin: 08/05/17 03:58 Dose: 650 mg Albuterol/Ipratropium (Duoneb 3.0-0.5 Mg/3 Ml) 3 ml NEB Q6HRRT PRN PRN Reason: SOB/Wheezing Aspirin (Aspirin) 81 mg PO DAILY [facility] Last Admin: 08/06/17 08:58 Dose: 81 mg Bisacodyl (Dulcolax) 5 mg PO DAILY PRN PRN Reason: Constipation Docusate Sodium (Colace) 100 mg PO BID PRN PRN Reason: Constipation Doxycycline Hyclate (Vibramycin) 100 mg PO Q12HR [facility] Last Admin: 08/06/17 08:57 Dose: 100 mg Enoxaparin Sodium (Lovenox) 40 mg SUBCUT DAILY [facility] Last Admin: 08/06/17 08:59 Dose: 40 mg Insulin Aspart (Novolog) 0 unit SUBCUT Q4H [facility] PRN Reason: Protocol Last Admin: 08/06/17 09:00 Dose: 10 unit Insulin Glargine (Lantus Solostar) 15 units SUBCUT DAILY [facility] Last Admin: 08/06/17 10:46 Dose: 15 units Lisinopril (Prinivil) 10 mg PO DAILY [facility] Last Admin: 08/06/17 08:58 Dose: 10 mg Nicotine (Habitrol) 21 mg TRDERM Q24H [facility] Last Admin: 08/05/17 15:10 Dose: 21 mg Ondansetron HCl (Zofran) 4 mg IVPUSH Q4H PRN PRN Reason: Nausea Sodium Chloride (Saline Flush) 10 ml FLUSH ASDIRECTED PRN PRN Reason: Keep Vein Open Last Admin: 08/04/17 09:33 Dose: 10 ml Sodium Chloride (Saline Flush) 2.5 ml FLUSH ASDIRECTED PRN PRN Reason: Keep Vein Open Last Admin: 08/04/17 09:33 Dose: 2.5 ml Temazepam (Restoril) 15 mg PO BEDTIME PRN PRN Reason: Sleep Discontinued Medications Albuterol/Ipratropium (Duoneb 3.0-0.5 Mg/3 Ml) 3 ml NEB Q6HRRT [facility] Last Admin: 08/04/17 13:44 Dose: Not Given Furosemide (Lasix) 40 mg IVPUSH NOW ONE Stop: 08/05/17 20:09 Last Admin: 08/05/17 21:33 Dose: 40 mg Sodium Chloride (Normal Saline) 1,000 mls @ 999 mls/hr IV .Bolus ONE Stop: 08/04/17 10:11 Last Admin: 08/04/17 09:33 Dose: 999 mls/hr Insulin Human Regular 100 unit (/ Sodium Chloride) 100 mls @ 7 mls/hr IV TITRATE [facility] PRN Reason: Protocol Last Titration: 08/04/17 20:05 Dose: 0.05 units/kg/hr, 3 mls/hr Sodium Chloride (Normal Saline) 1,000 mls @ 125 mls/hr IV ASDIRECTED [facility] Last Admin: 08/04/17 10:56 Dose: 125 mls/hr Sodium Chloride (Normal Saline) 1,000 mls @ 150 mls/hr IV ASDIRECTED [facility] Last Admin: 08/05/17 04:48 Dose: 150 mls/hr Sodium Chloride (Normal Saline) 1,000 mls @ 999 mls/hr IV .Bolus ONE Stop: 08/04/17 13:00 Last Admin: 08/04/17 12:04 Dose: 999 mls/hr Magnesium Sulfate 2 gm/ Premix 50 mls @ 50 mls/hr IV ONETIME ONE Stop: 08/04/17 14:36 Last Admin: 08/04/17 14:11 Dose: 50 mls/hr Sodium Chloride (Normal Saline) 1,000 mls @ 999 mls/hr IV STAT ONE Stop: 08/04/17 16:04 Last Admin: 08/04/17 15:16 Dose: 999 mls/hr Magnesium Sulfate 2 gm/ Premix 50 mls @ 25 mls/hr IV ONETIME ONE Stop: 08/04/17 21:22 Last Admin: 08/04/17 20:20 Dose: Not Given Doxycycline Hyclate 100 mg/ (Sodium Chloride) 100 mls @ 100 mls/hr IV Q12H [facility] Last Admin: 08/05/17 08:50 Dose: 100 mls/hr Magnesium Sulfate 2 gm/ Premix 50 mls @ 25 mls/hr IV ONETIME ONE Stop: 08/06/17 10:09 Last Admin: 08/06/17 09:05 Dose: 25 mls/hr Insulin Aspart (Novolog) 0 unit SUBCUT ACBED [facility] PRN Reason: Protocol Last Admin: 08/04/17 21:28 Dose: 2 units *Q Meaningful Use (DIS) - VTE *Q VTE Criteria *Q: - Stroke *Q Stroke Criteria *Q: - AMI *Q AMI Criteria *Q:
== END 2017-08-06 13:05 | disposition home or self-care (01) | DRG 639 ==
LOC: MW.ED 08:56 → MW.ICU 10:34 → UNDOADMIN 10:55 → MW.MS 08-05 14:55
PROVIDERS: ADMIT Family Medicine; ATTEND Family Medicine
DX: E10.10 Type 1 diabetes mellitus with ketoacidosis without coma (principal); E83.42 Hypomagnesemia; I10 Essential (primary) hypertension; F17.200 Nicotine dependence, unspecified, uncomplicated; Z79.4 Long term (current) use of insulin; Z79.899 Other long term (current) drug therapy
CPT/HCPCS: 36415; 36600; 71010; 71010-26; 80048; 80053; 80061; 81001; 82803; 82962; 83605; 83630; 83735; 85025; 87040; 87046; 87081; 87324; 87880; 87899; 96361; 96365; 99284-25; 99285; A9270-GY; J1650; J1815-GY ×2; J1940; J3475; J7030; J7040

== ENCOUNTER 2017-09-27 11:56 | Emergency (ER) | payer OTHER ==
[2017-09-27] MEDS ORDERED: Aspirin 81 MG Tab.Chew PO ONE (12:19)
[2017-09-27] MEDS ORDERED: Sodium Chloride 0.9% 10 ML Syringe FLUSH PRN (12:19)
[2017-09-27] MEDS ORDERED: Sodium Chloride 0.9% 2.5 ML Syringe FLUSH PRN (12:19)
--- NOTE | 2017-09-27 12:31 | EDM.PDOC ---
ED HPI GENERAL MEDICAL PROBLEM - General Chief Complaint: Cardiovascular Problem Stated Complaint: HIGH BLOOD PRESSURE Time Seen by Provider: 09/27/17 12:18 Source of Information: Reports: Patient History Limitations: Reports: No Limitations - History of Present Illness INITIAL COMMENTS - FREE TEXT/NARRATIVE: HISTORY AND PHYSICAL: History of present illness: Patient is a 62-year-old female who presents to the emergency room with complaints of high blood pressure and palpitations 3 months. Patient was being seen by Dr. Barnard at the clinic she wanted her evaluated in the emergency department. 40 mg of lisinopril by mouth was given prior to coming to the emergency room by Dr. Barnard. Patient states that her palpitations have been going on intermittently for the last 3 months, sometimes "going days without having any symptoms". States that she will get a heavy/tightening feeling around her chest that will last approximately 1 minute. Patient was admitted July 2017 for similar complaint. History of smoking for the past 50 years. Has a history of hypertension and type 1 diabetes. Family history of GA, father. Review of systems: As per history of present illness and below otherwise all systems reviewed and negative. Past medical history: As per history of present illness and as reviewed below otherwise noncontributory. Surgical history: As per history of present illness and as reviewed below otherwise noncontributory. Social history: No reported history of drug or alcohol abuse. Family history: As per history of present illness and as reviewed below otherwise noncontributory. Physical exam: Gen.: Well-developed and well-nourished 62-year-old female. Alert and oriented. Appears nontoxic and in no acute distress. HEENT: Atraumatic, normocephalic, pupils reactive, negative for conjunctival pallor or scleral icterus, mucous membranes moist, throat clear, neck supple, nontender, trachea midline. Lungs: Clear to auscultation, breath sounds equal bilaterally, chest nontender. Heart: S1S2, regular rate and rhythm without overt murmurs. Abdomen: Soft, nondistended, nontender. Negative for masses or hepatosplenomegaly. Negative for costovertebral tenderness. Pelvis: Stable nontender. Genitourinary: Deferred. Rectal: Deferred. Extremities: Atraumatic, moves all extremities per self, full range of motion, negative for cords or calf pain. Neurovascular unremarkable. Neuro: Awake, alert, oriented. Cranial nerves II through XII unremarkable. Cerebellum unremarkable. Motor and sensory unremarkable throughout. Exam nonfocal. Current blood pressure is 171/89, she reports that she has taken her medications appropriately. Continue to monitor. Labs have returned at this time. Negative CBC, CMP, TSH and troponin. Chest x- ray shows no acute findings. I did call to discuss the results. Her blood pressure remains high. She was sitting at 170s over 80 but recently had a reading of 204/90. Dr. Kwong requested that hydralazine 10 mg IV be given. He states he will come to see the patient later. Hydralazine was given here in the emergency room. Her blood pressure is now 156/ 75. The patient currently offers no complaints. 1500- Dr. Barnard 's here to see the patient. He states he is going to change her lisinopril and give her a new prescription. He is in reviewing discharge instructions with her as he is comfortable with her going home. Diagnostics: CBC, CMP, chest x-ray, EKG, troponin, TSH Therapeutics: Aspirin (had prior to arrival) Hydralazine 10 mg IV Impression: Palpitations Hypertension Plan: 1. Dr. Barnard suggested to her hypertension medication. Please follow-up with him as he has directed you to. 2. Please take your medications as directed. 3. Follow-up with your primary caregiver in the next 1-2 days. If your symptoms should worsen or new symptoms develop please return to the emergency room as soon as possible. Definitive disposition and diagnosis as appropriate pending reevaluation and review of above. Onset: Unknown/Unsure Duration: Week(s): Location: Reports: Chest - Related Data Allergies Allergy/AdvReac Type Severity Reaction Status Date / Time No Known Allergies Allergy Verified 09/27/17 12:08 Home Meds: Home Meds Insulin Lispro [HumaLOG] 1 unit SQ ACBED 10/24/14 [History] Aspirin [Ecotrin] 325 mg PO DAILY 07/13/17 [History] Lisinopril [Prinivil] 10 mg PO DAILY #30 tablet 07/14/17 [Rx] Insulin Glarg,Human.Rec.Analog [LantUS Solostar] 15 units SUBCUT DAILY 30 Days # 1 package 08/06/17 [Rx] Nicotine [Habitrol] 21 mg TRDERM Q24H patch 08/06/17 [Rx] Past Medical History - Past Health History Medical/Surgical History: Denies Medical/Surgical History HEENT History: Reports: Impaired Vision Other HEENT History: wears eye glasses Cardiovascular History: Reports: Hypertension Respiratory History: Reports: SOB Gastrointestinal History: Reports: None Genitourinary History: Reports: Renal Calculus Other Genitourinary History: X 2 , Surgical remval of renal calculus MACHINE BENDER History: Reports: Other OB/BYN History: PAST Musculoskeletal History: Reports: Arthritis Neurological History: Reports: Headaches, Chronic, Migraines, Vertigo Psychiatric History: Reports: None Endocrine/Metabolic History: Reports: Diabetes, Type I Other Endocrine/Metabolic History: Diagnosed X 20 years ago Hematologic History: Reports: None Immunologic History: Reports: None Oncologic (Cancer) History: Reports: None Dermatologic History: Reports: None - Infectious Disease History Infectious Disease History: Reports: Chicken Pox - Past Surgical History Head Surgeries/Procedures: Reports: None HEENT Surgical History: Reports: None Cardiovascular Surgical History: Reports: None GI Surgical History: Reports: None Endocrine Surgical History: Reports: None Neurological Surgical History: Reports: None Musculoskeletal Surgical History: Reports: None Social & Family History - Family History Family Medical History: Noncontributory - Tobacco Use Smoking Status *Q: Current Every Day Smoker Years of Tobacco use: 45 Packs/Tins Daily: 1 Used Tobacco, but Quit: No Second Hand Smoke Exposure: No - Caffeine Use Caffeine Use: Reports: Coffee, Tea - Alcohol Use Days Per Week of Alcohol Use: 0 - Recreational Drug Use Recreational Drug Use: No Recreational Drug Use Frequency: Rarely - Living Situation & Occupation Living situation: Reports: Alone ED ROS GENERAL - Review of Systems Review Of Systems: ROS reveals no pertinent complaints other than HPI. ED EXAM, GENERAL - Physical Exam Exam: See Below (See dictation) Course - Vital Signs Last Recorded V/S: Last Vital Signs Temp 97.6 F 09/27/17 12:05 Pulse 89 09/27/17 12:05 Resp 18 09/27/17 12:05 BP 156/75 H 09/27/17 14:30 Pulse Ox 98 09/27/17 12:05 - Orders/Labs/Meds Orders: Active Orders 24 hr Category Date Time Status EKG Documentation Completion [RC] STAT Care 12/18/17 12:19 Active Sodium Chloride 0.9% [Normal Saline] 1,000 ml Med 09/27/17 13:56 Active IV STAT Sodium Chloride 0.9% [Saline Flush] Med 09/27/17 12:19 Active 10 ml FLUSH ASDIRECTED PRN Sodium Chloride 0.9% [Saline Flush] Med 09/27/17 12:19 Active 2.5 ml FLUSH ASDIRECTED PRN Saline Lock Insert [OM.PC] Stat Oth 09/27/17 12:19 Ordered Medication Orders Sodium Chloride (Normal Saline) 1,000 mls @ 50 mls/hr IV STAT ONE Stop: 09/28/17 09:55 Sodium Chloride (Saline Flush) 10 ml FLUSH ASDIRECTED PRN PRN Reason: Keep Vein Open Sodium Chloride (Saline Flush) 2.5 ml FLUSH ASDIRECTED PRN PRN Reason: Keep Vein Open Labs: Laboratory Tests 09/27/17 09/27/17 Range/Units 12:25 12:25 WBC 7.58 (4.0-11.0) K/uL RBC 4.16 L (4.30-5.90) M/uL Hgb 12.9 (12.0-16.0) g/dL Hct 38.7 (36.0-46.0) % MCV 93.0 (80.0-98.0) fL MCH 31.0 (27.0-32.0) pg MCHC 33.3 (31.0-37.0) g/dL RDW Std Deviation 44.7 (28.0-62.0) fl RDW Coeff of Nicolasa 13 (11.0-15.0) % Plt Count 433 H (150-400) K/uL MPV 8.90 (7.40-12.00) fL Neut % (Auto) 62.0 (48.0-80.0) % Lymph % (Auto) 25.1 (16.0-40.0) % [place] % (Auto) 9.0 (0.0-15.0) % Eos % (Auto) 2.8 (0.0-7.0) % Baso % (Auto) 1.1 (0.0-1.5) % Neut # (Auto) 4.7 (1.4-5.7) K/uL Lymph # (Auto) 1.9 (0.6-2.4) K/uL [place] # (Auto) 0.7 (0.0-0.8) K/uL Eos # (Auto) 0.2 (0.0-0.7) K/uL Baso # (Auto) 0.1 (0.0-0.1) K/uL Nucleated RBC % 0.0 /100WBC Nucleated RBCs # 0 K/uL Sodium 135 L (136-146) mmol/L Potassium 4.4 (3.5-5.1) mmol/L Chloride 102 (98-110) mmol/L Carbon Dioxide 25 (21-31) mmol/L BUN 33 H (6.0-23.0) mg/dL Creatinine 1.4 (0.6-1.5) mg/dL Est Cr Clr Drug Dosing 36.53 mL/min Estimated GFR (MDRD) 37.9 ml/min Glucose 219 H (60-110) mg/dL Calcium 8.8 (8.8-10.8) mg/dL Total Bilirubin 0.2 (0.1-1.5) mg/dL AST 22 (5-40) IU/L ALT 15 (8-54) IU/L Alkaline Phosphatase 123 (40-150) Troponin I < 0.10 (0.0-0.29) NG/ML Total Protein 6.3 (6.0-8.0) g/dL Albumin 2.6 L (3.4-4.8) g/dL Globulin 3.7 H (2.0-3.5) g/dL Albumin/Globulin Ratio 0.7 L (1.3-2.8) TSH 3rd Generation 3.04 (0.47-5.0) uIU/mL Meds: Medications Generic Name Dose Route Start Last Admin Trade Name Freq PRN Reason Stop Dose Admin Sodium Chloride 1,000 mls @ 50 mls/hr 09/27/17 13:56 Normal Saline IV 09/28/17 09:55 STAT ONE Sodium Chloride 10 ml 09/27/17 12:19 Saline Flush FLUSH ASDIRECTED PRN Keep Vein Open Sodium Chloride 2.5 ml 09/27/17 12:19 Saline Flush FLUSH ASDIRECTED PRN Keep Vein Open Discontinued Medications Generic Name Dose Route Start Last Admin Trade Name Freq PRN Reason Stop Dose Admin Aspirin 324 mg 09/27/17 12:19 09/27/17 12:57 Aspirin PO 09/27/17 12:20 Not Given ONETIME ONE Hydralazine HCl 10 mg 09/27/17 13:55 09/27/17 14:10 Apresoline IVPUSH 09/27/17 13:56 10 mg ONETIME ONE Administration Departure - Departure Time of Disposition: 15:13 Disposition: Home, Self-Care 01 Clinical Impression: Palpitations Hypertension Qualifiers: Hypertension type: essential hypertension Qualified Code(s): I10 - Essential ( primary) hypertension Referrals: Selina Kingston CALENDER OPERATOR HELPER [Primary Care Provider] - Forms: ED Department Discharge Additional Instructions: My general discharge The following information is given to patients seen in the emergency department who are being discharged to home. This information is to outline your options for follow-up care. We provide all patients seen in our emergency department with a follow-up referral. The need for follow-up, as well as the timing and circumstances, are variable depending upon the specifics of your emergency department visit. If you don't have a primary care physician on staff, we will provide you with a referral. We always advise you to contact your personal physician following an emergency department visit to inform them of the circumstance of the visit and for follow-up with them and/or the need for any referrals to a consulting specialist. The emergency department will also refer you to a specialist when appropriate. This referral assures that you have the opportunity for follow-up care with a specialist. All of these measure are taken in an effort to provide you with optimal care, which includes your follow-up. Under all circumstances we always encourage you to contact your private physician who remains a resource for coordinating your care. When calling for follow-up care, please make the office aware that this follow-up is from your recent emergency room visit. If for any reason you are refused follow-up, please contact the [facility] Emergency Department at and asked to speak to the emergency department charge nurse. [facility] [address] [place] [id number] Barnard suggested to her hypertension medication. Please follow-up with him as he has directed you to. 2. Please take your medications as directed. 3. Follow-up with your primary caregiver in the next 1-2 days. If your symptoms should worsen or new symptoms develop please return to the emergency room as soon as possible. - My Orders Last 24 Hours: My Active Orders 09/27/17 12:19 EKG Documentation Completion [RC] STAT Sodium Chloride 0.9% [Saline Flush] 10 ml FLUSH ASDIRECTED PRN Sodium Chloride 0.9% [Saline Flush] 2.5 ml FLUSH ASDIRECTED PRN Saline Lock Insert [OM.PC] Stat 09/27/17 13:56 Sodium Chloride 0.9% [Normal Saline] 1,000 ml IV STAT - Assessment/Plan Last 24 Hours: My Active Orders 09/27/17 12:19 EKG Documentation Completion [RC] STAT Sodium Chloride 0.9% [Saline Flush] 10 ml FLUSH ASDIRECTED PRN Sodium Chloride 0.9% [Saline Flush] 2.5 ml FLUSH ASDIRECTED PRN Saline Lock Insert [OM.PC] Stat 09/27/17 13:56 Sodium Chloride 0.9% [Normal Saline] 1,000 ml IV STAT
--- NOTE | 2017-09-27 12:53 | CR ---
EXAMINATION: Portable chest radiograph. HISTORY: Palpitations. FINDINGS: The trachea is midline. The cardiomediastinal silhouette is within normal limits. No pulmonary infilt rates, effusions or pneumothorax. Osseous structures appear unremarkable. IMPRESSION: No acute cardiopulmonary process.
[2017-09-27 12:55] LABS: CHLORIDE,CL 102 mmol/L (98-110); SODIUM,NA 135 mmol/L (136-146)
[2017-09-27] MEDS ORDERED: hydrALAZINE 20 MG/ML SDV IVPUSH ONE (13:55)
[2017-09-27] MEDS ORDERED: Sodium Chloride 0.9% 1,000 ML IV ONE (13:56)
[2017-09-27 15:00] VITALS: BP 156/75
[2017-09-28] MEDS ORDERED: LORazepam 2 MG/ML SDV ONE (07:22)
== END 2017-09-27 15:31 | disposition home or self-care (01) ==
LOC: MW.ED 11:56
DX: I10 Essential (primary) hypertension (principal); R00.2 Palpitations; E10.9 Type 1 diabetes mellitus without complications; F17.210 Nicotine dependence, cigarettes, uncomplicated
CPT/HCPCS: 36415; 71010; 80053; 84443; 84484; 85025; 93005; 96374; 99284; J0360

== ENCOUNTER 2017-12-24 19:26 | Observation (INO) | payer OTHER ==
[2017-12-24] MEDS ORDERED: Sodium Chloride 0.9% 1,000 ML IV ONE (19:53)
[2017-12-24 20:33] LABS: CHLORIDE,CL 106 mmol/L (98-107); SODIUM,NA 139 mmol/L (136-145)
--- NOTE | 2017-12-24 20:56 | EDM.PDOC ---
ED HPI GENERAL MEDICAL PROBLEM - General Chief Complaint: Diabetic Complaint Stated Complaint: AMB Time Seen by Provider: 12/24/17 19:33 Source of Information: Reports: Patient History Limitations: Reports: No Limitations - History of Present Illness INITIAL COMMENTS - FREE TEXT/NARRATIVE: HISTORY AND PHYSICAL: History of present illness: Patient is a 62-year-old female who presents to the emergency room by EMS with complaints of low blood sugars. She does a type I diabetic who routinely gets hypoglycemic. Her primary care provider and the tobacco prevention health educator opted for her to have a insulin pump to help better manage her blood sugars. Over the past 3 weeks she has had multiple visits to the tobacco prevention health educator for essence to her insulin dosing as she has been running low. Over the past 2 days she has had multiple episodes of syncope due to her low blood sugars. She lives with her daughter who has had found her on the floor, sugars as low as 30. Her last adjustment of her insulin pump was early this afternoon. Daughter states prior to arrival they had checked her sugars and she was in the 30s. EMS gave her 1-1/ 2 ampules of D5 and a couple glasses of juice, bringing her sugar up to 93. Patient complains of tailbone and right chest wall pain from falling. Patient is alert and oriented area and the insulin pump has been turned off at this point. She denies any fever, chills, chest pain or shortness of breath. She denies any headache or change in vision. Denies any abdominal pain, nausea, vomiting or diarrhea/constipation. Review of systems: As per history of present illness and below otherwise all systems reviewed and negative. Past medical history: As per history of present illness and as reviewed below otherwise noncontributory. Surgical history: As per history of present illness and as reviewed below otherwise noncontributory. Social history: No reported history of drug or alcohol abuse. Family history: As per history of present illness and as reviewed below otherwise noncontributory. Physical exam: General: Well-developed and well-nourished 62-year-old female. Alert and oriented. Nontoxic appearing and in no acute distress. HEENT: Atraumatic, normocephalic, pupils reactive, negative for conjunctival pallor or scleral icterus, mucous membranes moist, throat clear, neck supple, nontender, trachea midline. Lungs: Clear to auscultation, breath sounds equal bilaterally, chest nontender. Heart: S1S2, regular rate and rhythm Abdomen: Soft, nondistended, nontender. Negative for masses or hepatosplenomegaly. Negative for costovertebral tenderness. Pelvis: Stable nontender. Genitourinary: Deferred. Rectal: Deferred. Extremities: Atraumatic, negative for cords or calf pain. Neurovascular unremarkable. Neuro: Awake, alert, oriented. Cranial nerves II through XII unremarkable. Cerebellum unremarkable. Motor and sensory unremarkable throughout. Exam nonfocal. Reviewed lab results and x-ray results with patient and family members. Sugar is now on the 200s. We'll keep the patient for observation for close monitoring to get her blood sugars better managed. Family states that they would not have felt comfortable taking her home and concerned her blood sugar would drop during the night. Patient currently offers no complaints and is agreeable to staying. Dr. Cobian was consulted on this case and is here to evaluate the patient. Patient will be admitted for observation. Diagnostics: CBC, CMP, troponin, EKG, head CT, lumbar x-ray, chest x-ray and a bedside glucose Therapeutics: IV fluids Impression: Hypoglycemia Plan: Observation admission to [facility] Definitive disposition and diagnosis as appropriate pending reevaluation and review of above. Duration: Chronic Generalized Pain Score (Numeric/FACES): 2 - Related Data Allergies Allergy/AdvReac Type Severity Reaction Status Date / Time No Known Allergies Allergy Verified 12/24/17 19:35 Home Meds: Home Meds Aspirin [Ecotrin] 325 mg PO DAILY 07/13/17 [History] Fluticasone/Salmeterol [Advair 100-50] 1 puff INH BID 12/24/17 [History] Furosemide 20 mg PO BID 12/24/17 [History] Insulin Glarg,Human.Rec.Analog [LantUS Solostar] 1 units SUBCUT DAILY 12/24/17 [ History] Lisinopril [Prinivil] 40 mg PO DAILY 12/24/17 [History] amLODIPine Besylate [Amlodipine Besylate] 10 mg PO DAILY 12/24/17 [History] buPROPion HCl [Zyban] 150 mg PO BID 12/24/17 [History] Past Medical History - Past Health History Medical/Surgical History: Denies Medical/Surgical History HEENT History: Reports: Impaired Vision Other HEENT History: wears eye glasses Cardiovascular History: Reports: Hypertension Respiratory History: Reports: SOB Gastrointestinal History: Reports: None Genitourinary History: Reports: Renal Calculus Other Genitourinary History: X 2 , Surgical remval of renal calculus WOODS BOSS History: Reports: Other OB/BYN History: PAST Musculoskeletal History: Reports: Arthritis Neurological History: Reports: Headaches, Chronic, Migraines, Vertigo Psychiatric History: Reports: None Endocrine/Metabolic History: Reports: Diabetes, Type I Other Endocrine/Metabolic History: Diagnosed X 20 years ago Hematologic History: Reports: None Immunologic History: Reports: None Oncologic (Cancer) History: Reports: None Dermatologic History: Reports: None - Infectious Disease History Infectious Disease History: Reports: Chicken Pox - Past Surgical History Head Surgeries/Procedures: Reports: None HEENT Surgical History: Reports: None Cardiovascular Surgical History: Reports: None GI Surgical History: Reports: None Female Surgical History: Reports: Hysterectomy Endocrine Surgical History: Reports: None Neurological Surgical History: Reports: None Musculoskeletal Surgical History: Reports: None Social & Family History - Family History Family Medical History: Noncontributory - Tobacco Use Smoking Status *Q: Current Every Day Smoker Years of Tobacco use: 40 Packs/Tins Daily: 0.1 Used Tobacco, but Quit: No Second Hand Smoke Exposure: No - Caffeine Use Caffeine Use: Reports: Coffee, Tea - Alcohol Use Days Per Week of Alcohol Use: 0 - Recreational Drug Use Recreational Drug Use: No Recreational Drug Use Frequency: Rarely - Living Situation & Occupation Living situation: Reports: Alone ED ROS GENERAL - Review of Systems Review Of Systems: ROS reveals no pertinent complaints other than HPI. ED EXAM GENERAL NO PERIP PULSE - Physical Exam Exam: See Below (See dictation) Course - Vital Signs Last Recorded V/S: Last Vital Signs Temp 97.8 F 12/24/17 19:31 Pulse 103 H 12/24/17 19:31 Resp 12 12/24/17 19:31 BP 188/88 H 12/24/17 19:31 Pulse Ox 97 12/24/17 19:31 - Orders/Labs/Meds Orders: Active Orders 24 hr Category Date Time Status Admission Status [Patient Status] [ADT] Stat ADT 12/24/17 20:56 Ordered EKG Documentation Completion [RC] STAT Care 12/24/17 19:53 Active Chest 2V [CR] Stat Exams 12/24/17 19:53 Taken Head wo Cont [CT] Stat Exams 12/24/17 19:53 Taken Lumbar Spine 2 or 3V [CR] Stat Exams 12/24/17 19:53 Taken CULTURE URINE [RM] Stat Lab 12/24/17 21:04 Ordered URINALYSIS W/MICROSCOPIC [UA W/MICROSCOPIC] [URIN] Stat Lab 12/24/17 21:04 Ordered Labs: Laboratory Tests 12/24/17 12/24/17 12/24/17 Range/Units 20:02 20:02 21:05 WBC 10.68 (4.0-11.0) K/uL RBC 3.78 L (4.30-5.90) M/uL Hgb 11.5 L (12.0-16.0) g/dL Hct 34.5 L (36.0-46.0) % MCV 91.3 (80.0-98.0) fL MCH 30.4 (27.0-32.0) pg MCHC 33.3 (31.0-37.0) g/dL RDW Std Deviation 45.8 (28.0-62.0) fl RDW Coeff of Nicolasa 14 (11.0-15.0) % Plt Count 411 H (150-400) K/uL MPV 8.30 (7.40-12.00) fL Neut % (Auto) 76.0 (48.0-80.0) % Lymph % (Auto) 11.1 L (16.0-40.0) % [place] % (Auto) 9.9 (0.0-15.0) % Eos % (Auto) 2.2 (0.0-7.0) % Baso % (Auto) 0.8 (0.0-1.5) % Neut # (Auto) 8.1 H (1.4-5.7) K/uL Lymph # (Auto) 1.2 (0.6-2.4) K/uL [place] # (Auto) 1.1 H (0.0-0.8) K/uL Eos # (Auto) 0.2 (0.0-0.7) K/uL Baso # (Auto) 0.1 (0.0-0.1) K/uL Nucleated RBC % 0.0 /100WBC Nucleated RBCs # 0 K/uL Sodium 139 (136-145) mmol/L Potassium 4.4 (3.5-5.1) mmol/L Chloride 106 (98-107) mmol/L Carbon Dioxide 26.1 (21.0-32.0) mmol/L BUN 23 H (7.0-18.0) mg/dL Creatinine 1.2 H (0.6-1.0) mg/dL Est Cr Clr Drug Dosing 40.70 mL/min Estimated GFR (MDRD) 45.2 ml/min Glucose 93 (74-106) mg/dL POC Glucose 203 H (60-110) mg/dL Calcium 8.1 L (8.5-10.1) mg/dL Total Bilirubin 0.1 L (0.2-1.0) mg/dL AST 43 H (15-37) IU/L ALT 34 (14-63) IU/L Alkaline Phosphatase 121 H (46-116) U/L Troponin I < 0.050 (0.000-0.056) ng/mL Total Protein 5.7 L (6.4-8.2) g/dL Albumin 1.8 L (3.4-5.0) g/dL Globulin 3.9 H (2.0-3.5) g/dL Albumin/Globulin Ratio 0.5 L (1.3-2.8) Meds: Medications Discontinued Medications Generic Name Dose Route Start Last Admin Trade Name Freq PRN Reason Stop Dose Admin Sodium Chloride 1,000 mls @ 999 mls/hr 12/24/17 19:53 12/24/17 20:02 Normal Saline IV 12/24/17 20:53 999 mls/hr STAT ONE Administration Departure - Departure Time of Disposition: 21:36 Disposition: Refer to Observation Clinical Impression: Hypoglycemia - Discharge Information Referrals: Selina Kingston BARGE MASTER [Primary Care Provider] - Forms: ED Department Discharge - My Orders Last 24 Hours: My Active Orders 12/24/17 19:53 EKG Documentation Completion [RC] STAT Chest 2V [CR] Stat Head wo Cont [CT] Stat Lumbar Spine 2 or 3V [CR] Stat 12/24/17 20:56 Admission Status [Patient Status] [ADT] Stat - Assessment/Plan Last 24 Hours: My Active Orders 12/24/17 19:53 EKG Documentation Completion [RC] STAT Chest 2V [CR] Stat Head wo Cont [CT] Stat Lumbar Spine 2 or 3V [CR] Stat 12/24/17 20:56 Admission Status [Patient Status] [ADT] Stat
--- NOTE | 2017-12-24 21:05 | PCM.HP ---
H&P History of Present Illness - General Date of Service: 12/24/17 Admit Problem/Dx: Admission Diagnosis/Problem Admission Diagnosis/Problem Hypoglycemia due to type 1 diabetes mellitus Source of Information: Patient History Limitations: Reports: No Limitations - History of Present Illness Initial Comments - Free Text/Narative: 62-year-old female presented emergency department with chief complaint of low blood sugars with past medical history of poorly controlled type 1 diabetes, hypertension, and COPD. Patient states that approximately 3 weeks ago she was started on an insulin. Since that time she's been having problems with low blood sugars. She admits to seeing the certified adaptive physical educator today for adjustment and believes that the basal rates were decreased. Patient states that today she had episodes of sugars in the 30s with associated syncopal event and altered mental status. Her daughter brought her into the emergency room for further evaluation. Patient states that she's been eating normally. She does admit to having a "cold" she had diarrhea this past week that she states has been getting better. She does admit to some mild swelling in her legs. As mentioned above she met with Dulce Maria, certified adaptive physical educator today. Patient currently denies any chest pain, palpitations, shortness of breath, nausea, vomiting, abdominal pain, leg pain, or new focal neurologic deficits. Patient is still a current smoker with a 40+ pack yr history and has a history of COPD. States that she is down to 1 cigarette every few days when she is stressed. She also has been seeing Dr. Kwong filling separator for her hypertension. They believe they have another appointment with him on January 18 or of this coming month. Emergency department: CBC unremarkable, creatinine mildly elevated at 1.2 previous creatinine on 09/27 and 08/06/17 was 1.4. Mildly elevated AST of 43. Chest x-ray and lumbar spine x-ray unremarkable. CT of the head revealing no intracranial abnormalities or fractures. There were some soft tissue densities within the left maxillary sinus most likely representing sinusitis. She was given 1 L normal saline while in the emergency department. Patient admitted for hypoglycemia in a type I diabetic. Generalized Pain Score (Numeric/FACES): 2 - Related Data Allergies/Adverse Reactions: Allergies Allergy/AdvReac Type Severity Reaction Status Date / Time No Known Allergies Allergy Verified 12/24/17 19:35 Home Medications: Home Meds Aspirin [Ecotrin] 325 mg PO DAILY 07/13/17 [History] Fluticasone/Salmeterol [Advair 100-50] 1 puff INH BID 12/24/17 [History] Furosemide 20 mg PO BID 12/24/17 [History] Insulin Glarg,Human.Rec.Analog [LantUS Solostar] 1 units SUBCUT DAILY 12/24/17 [ History] Lisinopril [Prinivil] 40 mg PO DAILY 12/24/17 [History] amLODIPine Besylate [Amlodipine Besylate] 10 mg PO DAILY 12/24/17 [History] buPROPion HCl [Zyban] 150 mg PO BID 12/24/17 [History] Past Medical History - Past Health History Medical/Surgical History: Denies Medical/Surgical History HEENT History: Reports: Impaired Vision Other HEENT History: wears eye glasses Cardiovascular History: Reports: Hypertension Respiratory History: Reports: SOB Gastrointestinal History: Reports: None Genitourinary History: Reports: Renal Calculus Other Genitourinary History: X 2 , Surgical remval of renal calculus BENCH MOVER History: Reports: Other OB/BYN History: PAST Musculoskeletal History: Reports: Arthritis Neurological History: Reports: Headaches, Chronic, Migraines, Vertigo Psychiatric History: Reports: None Endocrine/Metabolic History: Reports: Diabetes, Type I Other Endocrine/Metabolic History: Diagnosed X 20 years ago Hematologic History: Reports: None Immunologic History: Reports: None Oncologic (Cancer) History: Reports: None Dermatologic History: Reports: None - Infectious Disease History Infectious Disease History: Reports: Chicken Pox - Past Surgical History Head Surgeries/Procedures: Reports: None HEENT Surgical History: Reports: None Cardiovascular Surgical History: Reports: None GI Surgical History: Reports: None Female Surgical History: Reports: Hysterectomy Endocrine Surgical History: Reports: None Neurological Surgical History: Reports: None Musculoskeletal Surgical History: Reports: None Social & Family History - Family History Family Medical History: Noncontributory - Tobacco Use Smoking Status *Q: Current Every Day Smoker Years of Tobacco use: 40 Packs/Tins Daily: 0.1 Used Tobacco, but Quit: No Second Hand Smoke Exposure: No - Caffeine Use Caffeine Use: Reports: Coffee, Tea - Alcohol Use Days Per Week of Alcohol Use: 0 - Recreational Drug Use Recreational Drug Use: No Recreational Drug Use Frequency: Rarely - Living Situation & Occupation Living situation: Reports: Alone H&P Review of Systems - Review of Systems: Review Of Systems: See Below General: Denies: Fever, Chills, Malaise, Weakness, Fatigue HEENT: Denies: Headaches, Sore Throat Pulmonary: Reports: Cough, Sputum. Denies: Shortness of Breath, Wheezing Cardiovascular: Denies: Chest Pain, Palpitations, Edema Gastrointestinal: Reports: Diarrhea. Denies: Abdominal Pain, Black Stool, Bloody Stool, Nausea, Vomiting Genitourinary: Denies: Dysuria, Hematuria Musculoskeletal: Denies: Neck Pain, Leg Pain Skin: Denies: Cyanosis Psychiatric: Reports: Confusion Neurological: Reports: Confusion, Dizziness, Syncope. Denies: Headache Hematologic/Lymphatic: Denies: Anemia Immunologic: Denies: Anaphylaxis Exam - Exam Exam: See Below - Vital Signs Vital Signs: Last Vital Signs Temp 97.8 F 12/24/17 19:31 Pulse 103 H 12/24/17 19:31 Resp 12 12/24/17 19:31 BP 188/88 H 12/24/17 19:31 Pulse Ox 97 12/24/17 19:31 Weight: 54.431 kg - Exam Quality Assessment: DVT Prophylaxis General: Alert, Oriented, Cooperative HEENT: Conjunctiva Clear, EACs Clear, EOMI, Hearing Intact, Mucosa Moist & [place] , Nares Patent, Normal Nasal Septum, Posterior Pharynx Clear, PERRLA Neck: Supple, Trachea Midline, 2 Lungs: Clear to Auscultation, Normal Respiratory Effort Cardiovascular: Regular Rate, Regular Rhythm, Normal S1, Normal S2 GI/Abdominal Exam: Normal Bowel Sounds, Soft, Non-Tender, No Organomegaly, No Distention (Female) Exam: Deferred Rectal (Female) Exam: Deferred Back Exam: Normal Inspection Extremities: Normal Inspection, Non-Tender, No Pedal Edema, Normal Capillary Refill Peripheral Pulses: 2+: Radial (L), Radial (R), Posterior Tibial (L), Posterior Tibial (R), Dorsalis Pedis (L), Dorsalis Pedis (R) Skin: Warm, Dry, Intact Neurological: Cranial Nerves Intact Neuro Extensive - Mental Status: Alert, Oriented x3, Normal Mood/Affect, Normal Cognition Neuro Extensive - Motor, Sensory, Reflexes: CN II-XII Intact Psychiatric: Alert, Normal Affect, Normal Mood - Patient Data Lab Results Last 24 hrs: Laboratory Results - last 24 hr 12/24/17 12/24/17 Range/Units 20:02 20:02 WBC 10.68 (4.0-11.0) K/uL RBC 3.78 L (4.30-5.90) M/uL Hgb 11.5 L (12.0-16.0) g/dL Hct 34.5 L (36.0-46.0) % MCV 91.3 (80.0-98.0) fL MCH 30.4 (27.0-32.0) pg MCHC 33.3 (31.0-37.0) g/dL RDW Std Deviation 45.8 (28.0-62.0) fl RDW Coeff of Nicolasa 14 (11.0-15.0) % Plt Count 411 H (150-400) K/uL MPV 8.30 (7.40-12.00) fL Neut % (Auto) 76.0 (48.0-80.0) % Lymph % (Auto) 11.1 L (16.0-40.0) % [place] % (Auto) 9.9 (0.0-15.0) % Eos % (Auto) 2.2 (0.0-7.0) % Baso % (Auto) 0.8 (0.0-1.5) % Neut # (Auto) 8.1 H (1.4-5.7) K/uL Lymph # (Auto) 1.2 (0.6-2.4) K/uL [place] # (Auto) 1.1 H (0.0-0.8) K/uL Eos # (Auto) 0.2 (0.0-0.7) K/uL Baso # (Auto) 0.1 (0.0-0.1) K/uL Nucleated RBC % 0.0 /100WBC Nucleated RBCs # 0 K/uL Sodium 139 (136-145) mmol/L Potassium 4.4 (3.5-5.1) mmol/L Chloride 106 (98-107) mmol/L Carbon Dioxide 26.1 (21.0-32.0) mmol/L BUN 23 H (7.0-18.0) mg/dL Creatinine 1.2 H (0.6-1.0) mg/dL Est Cr Clr Drug Dosing 40.70 mL/min Estimated GFR (MDRD) 45.2 ml/min Glucose 93 (74-106) mg/dL Calcium 8.1 L (8.5-10.1) mg/dL Total Bilirubin 0.1 L (0.2-1.0) mg/dL AST 43 H (15-37) IU/L ALT 34 (14-63) IU/L Alkaline Phosphatase 121 H (46-116) U/L Troponin I < 0.050 (0.000-0.056) ng/mL Total Protein 5.7 L (6.4-8.2) g/dL Albumin 1.8 L (3.4-5.0) g/dL Globulin 3.9 H (2.0-3.5) g/dL Albumin/Globulin Ratio 0.5 L (1.3-2.8) Result Diagrams: 12/24/17 20:02 12/24/17 20:02 *Q Meaningful Use (ADM) - VTE *Q VTE Criteria *Q: - Stroke *Q Stroke Criteria *Q: - AMI *Q AMI Criteria *Q: - Problem List (1) COPD (chronic obstructive pulmonary disease) SNOMED Code(s): 43429775 ICD Code: J44.9 - CHRONIC OBSTRUCTIVE PULMONARY DISEASE, UNSPECIFIED Status : Chronic Priority: Medium Current Visit: Yes Qualifiers: COPD type: unspecified COPD Qualified Code(s): J44.9 - Chronic obstructive pulmonary disease, unspecified (2) Hypoglycemia SNOMED Code(s): 125285861 ICD Code: E16.2 - HYPOGLYCEMIA, UNSPECIFIED Status: Acute Priority: High Current Visit: Yes (3) Hypertension SNOMED Code(s): 58123025 ICD Code: I10 - ESSENTIAL (PRIMARY) HYPERTENSION Status: Chronic Priority : Medium Current Visit: Yes Qualifiers: Hypertension type: essential hypertension Qualified Code(s): I10 - Essential (primary) hypertension (4) Serum creatinine raised SNOMED Code(s): 810321819 ICD Code: R79.89 - OTHER SPECIFIED ABNORMAL FINDINGS OF BLOOD CHEMISTRY Status: Chronic Priority: Medium Current Visit: Yes (5) DM type 1 (diabetes mellitus, type 1) SNOMED Code(s): 45497059 ICD Code: E10.9 - TYPE 1 DIABETES MELLITUS WITHOUT COMPLICATIONS Status: Chronic Priority: High Current Visit: Yes Qualifiers: Diabetes mellitus complication status: with unspecified complications Qualified Code(s): E10.8 - Type 1 diabetes mellitus with unspecified complications (6) Smoker SNOMED Code(s): 84861182 ICD Code: F17.200 - NICOTINE DEPENDENCE, UNSPECIFIED, UNCOMPLICATED Status : Chronic Priority: Medium Current Visit: Yes Problem List Initiated/Reviewed/Updated: Yes Orders Last 24hrs: Active Orders 24 hr Category Date Time Status Admission Status [Patient Status] [ADT] Stat ADT 12/24/17 20:56 Active EKG Documentation Completion [RC] STAT Care 12/24/17 19:53 Active Chest 2V [CR] Stat Exams 12/24/17 19:53 Taken Head wo Cont [CT] Stat Exams 12/24/17 19:53 Taken Lumbar Spine 2 or 3V [CR] Stat Exams 12/24/17 19:53 Taken CULTURE URINE [RM] Stat Lab 12/24/17 21:04 Ordered URINALYSIS W/MICROSCOPIC [UA W/MICROSCOPIC] [URIN] Stat Lab 12/24/17 21:04 Ordered Assessment/Plan Comment:: 62-year-old female admitted 12/24/17 for hypoglycemia in a type I diabetic with past medical history of hypertension and COPD current smoker. Hypoglycemia: Patient's blood sugar currently is 93. I did evaluate her pump which has her on a basal of 14.4 with a sensitivity of 80 target of 100-140. Basal most likely will need to be decreased. At this time we'll place her on an insulin sliding scale medium dose and have her evaluated by certified adaptive physical educator, Dulce Maria, tomorrow morning since it is late in the evening. Her mildly elevated creatinine is most likely secondary to beginning stages of chronic kidney disease secondary to her type 1 diabetes. It is somewhat less than it was last year at 1.2 today previously 1.4. We'll monitor patient will most likely benefit from nephrology eval in the future. Hypertension: We'll monitor closely and restart home medications. She does see filling separator for this. Also noted some mild edema in the legs. Will hold fluids and watch volume status. We'll hold off on echocardiogram at this time as patient is following up with Dr. Kwong, filling separator early this next month. COPD: Currently stable not on home oxygen will restart home medications and monitor closely. I talked to her about complete smoking cessation. She is currently smoking approximately 1 cigarette every few days secondary distress. VTE proph: SCD, Heparin Dispo: 1-2 days pending.
[2017-12-24] MEDS ORDERED: Morphine 2 MG/ML Syringe IVPUSH PRN (22:19)
[2017-12-24] MEDS ORDERED: Ondansetron 4 MG/2 ML SDV IVPUSH PRN (22:19)
[2017-12-24] MEDS ORDERED: Temazepam 15 MG Cap PO PRN (22:19)
[2017-12-24] MEDS ORDERED: oxyCODONE 5 MG Tab PO PRN (22:19)
[2017-12-24] MEDS ORDERED: Acetaminophen 325 MG Tab PO PRN (22:19)
[2017-12-24] MEDS ORDERED: Ondansetron 4 MG Tab.DIS PO PRN (22:19)
[2017-12-24] MEDS: Heparin Sodium 5,000 Units/ML Vial SUBCUT SCH (23:24)
[2017-12-24] MEDS: amLODIPine 5 MG Tab PO SCH (23:27)
[2017-12-25] MEDS ORDERED: Insulin Regular, Human 100 Units/ML 10 ML Vial IVPUSH STA ×2 (06:30→07:39)
[2017-12-25] MEDS: Furosemide 20 MG Tab PO SCH ×2 (07:50→15:01)
[2017-12-25] MEDS ORDERED: Magnesium Sulfate/Water 4 GM in Premix Bag 1 BAG IV ONE (08:06)
--- NOTE | 2017-12-25 08:09 | PCM.PN ---
- General Info Date of Service: 12/25/17 Admission Dx/Problem (Free Text): Admission Diagnosis/Problem Admission Diagnosis/Problem Hypoglycemia due to type 1 diabetes mellitus Subjective Update: Blood sugars high overnight after eating at 0100. Feels this morning like there are improving. Denies n/v, diarrhea, pain. Slept well. Good appetite. No complaints. Functional Status: Reports: Pain Controlled, Tolerating Diet, Ambulating, Urinating - Review of Systems General: Denies: Fever, Weakness, Fatigue, Malaise HEENT: Denies: Headaches, Visual Changes Pulmonary: Denies: Shortness of Breath, Hemoptysis Cardiovascular: Denies: Chest Pain, Edema Gastrointestinal: Denies: Abdominal Pain, Diarrhea, Nausea, Vomiting Genitourinary: Denies: Dysuria, Hematuria Musculoskeletal: Denies: Neck Pain, Leg Pain Neurological: Denies: Confusion Psychiatric: Denies: Confusion - Patient Data Vitals - Most Recent: Last Vital Signs Temp 97.7 F 12/25/17 05:29 Pulse 80 12/25/17 05:29 Resp 18 12/25/17 05:29 BP 160/78 H 12/25/17 05:29 Pulse Ox 95 12/25/17 05:29 Weight - Most Recent: 54.431 kg I&O - Last 24 Hours: Intake & Output 12/24/17 12/25/17 12/25/17 22:59 06:59 14:59 Intake Total 500 Output Total 300 Balance 200 Lab Results Last 24 Hours: Laboratory Results - last 24 hr 12/24/17 12/24/17 12/25/17 Range/Units 21:05 23:20 05:00 WBC 10.25 (4.0-11.0) K/uL RBC 3.75 L (4.30-5.90) M/uL Hgb 11.2 L (12.0-16.0) g/dL Hct 35.3 L (36.0-46.0) % MCV 94.1 (80.0-98.0) fL MCH 29.9 (27.0-32.0) pg MCHC 31.7 (31.0-37.0) g/dL RDW Std Deviation 48.0 (28.0-62.0) fl RDW Coeff of Nicolasa 14 (11.0-15.0) % Plt Count 429 H (150-400) K/uL MPV 8.60 (7.40-12.00) fL Neut % (Auto) 77.5 (48.0-80.0) % Lymph % (Auto) 10.8 L (16.0-40.0) % [place] % (Auto) 9.4 (0.0-15.0) % Eos % (Auto) 1.4 (0.0-7.0) % Baso % (Auto) 0.9 (0.0-1.5) % Neut # (Auto) 8.0 H (1.4-5.7) K/uL Lymph # (Auto) 1.1 (0.6-2.4) K/uL [place] # (Auto) 1.0 H (0.0-0.8) K/uL Eos # (Auto) 0.1 (0.0-0.7) K/uL Baso # (Auto) 0.1 (0.0-0.1) K/uL Nucleated RBC % 0.0 /100WBC Nucleated RBCs # 0 K/uL Sodium (136-145) mmol/L Potassium (3.5-5.1) mmol/L Chloride (98-107) mmol/L Carbon Dioxide (21.0-32.0) mmol/L BUN (7.0-18.0) mg/dL Creatinine (0.6-1.0) mg/dL Est Cr Clr Drug Dosing mL/min Estimated GFR (MDRD) ml/min Glucose (74-106) mg/dL POC Glucose 203 H (60-110) mg/dL Calcium (8.5-10.1) mg/dL Phosphorus (2.6-4.7) mg/dL Magnesium (1.5-2.0) mg/dL Urine Color YELLOW Urine Appearance CLEAR Urine pH 6.5 (5.0-8.0) Ur Specific [place] 1.020 (1.001-1.035) Urine Protein >=300 (NEGATIVE) mg/dL Urine Glucose (UA) >=1000 (NEGATIVE) mg/dL Urine Ketones TRACE H (NEGATIVE) mg/dL Urine Occult Blood MODERATE (NEGATIVE) Urine Nitrite NEGATIVE (NEGATIVE) Urine Bilirubin NEGATIVE (NEGATIVE) Urine Urobilinogen 0.2 (<2.0) EU/dL Ur Leukocyte Esterase NEGATIVE (NEGATIVE) Urine RBC 1-2 (0-2/HPF) Urine WBC 0-1 (0-5/HPF) Ur Epithelial Cells RARE (NONE-FEW) Urine Bacteria FEW (NEGATIVE) 12/25/17 12/25/17 Range/Units 05:00 06:23 WBC (4.0-11.0) K/uL RBC (4.30-5.90) M/uL Hgb (12.0-16.0) g/dL Hct (36.0-46.0) % MCV (80.0-98.0) fL MCH (27.0-32.0) pg MCHC (31.0-37.0) g/dL RDW Std Deviation (28.0-62.0) fl RDW Coeff of Nicolasa (11.0-15.0) % Plt Count (150-400) K/uL MPV (7.40-12.00) fL Neut % (Auto) (48.0-80.0) % Lymph % (Auto) (16.0-40.0) % [place] % (Auto) (0.0-15.0) % Eos % (Auto) (0.0-7.0) % Baso % (Auto) (0.0-1.5) % Neut # (Auto) (1.4-5.7) K/uL Lymph # (Auto) (0.6-2.4) K/uL [place] # (Auto) (0.0-0.8) K/uL Eos # (Auto) (0.0-0.7) K/uL Baso # (Auto) (0.0-0.1) K/uL Nucleated RBC % /100WBC Nucleated RBCs # K/uL Sodium 132 L (136-145) mmol/L Potassium 5.9 H (3.5-5.1) mmol/L Chloride 100 (98-107) mmol/L Carbon Dioxide 21.0 (21.0-32.0) mmol/L BUN 26 H (7.0-18.0) mg/dL Creatinine 1.4 H (0.6-1.0) mg/dL Est Cr Clr Drug Dosing 34.88 mL/min Estimated GFR (MDRD) 37.9 ml/min Glucose 633 H* (74-106) mg/dL POC Glucose > 500 H (60-110) mg/dL Calcium 8.4 L (8.5-10.1) mg/dL Phosphorus 3.6 (2.6-4.7) mg/dL Magnesium 1.4 L (1.5-2.0) mg/dL Urine Color Urine Appearance Urine pH (5.0-8.0) Ur Specific [place] (1.001-1.035) Urine Protein (NEGATIVE) mg/dL Urine Glucose (UA) (NEGATIVE) mg/dL Urine Ketones (NEGATIVE) mg/dL Urine Occult Blood (NEGATIVE) Urine Nitrite (NEGATIVE) Urine Bilirubin (NEGATIVE) Urine Urobilinogen (<2.0) EU/dL Ur Leukocyte Esterase (NEGATIVE) Urine RBC (0-2/HPF) Urine WBC (0-5/HPF) Ur Epithelial Cells (NONE-FEW) Urine Bacteria (NEGATIVE) Med Orders - Current: Current Medications Acetaminophen (Tylenol) 650 mg PO Q4H PRN PRN Reason: Pain (Mild 1-3)/fever Amlodipine Besylate (Norvasc) 10 mg PO DAILY [facility] Last Admin: 12/24/17 23:27 Dose: 10 mg Aspirin (Ecotrin) 325 mg PO DAILY [facility] Bupropion HCl (Wellbutrin Sr) 150 mg PO BID [facility] Furosemide (Lasix) 20 mg PO BIDDIURETIC [facility] Last Admin: 12/25/17 07:50 Dose: 20 mg Heparin Sodium (Porcine) (Heparin Sodium) 5,000 units SUBCUT Q12H [facility] Last Admin: 12/24/17 23:24 Dose: 5,000 units Magnesium Sulfate 4 gm/ Premix 100 mls @ 25 mls/hr IV ONETIME ONE Stop: 12/25/17 12:05 Insulin Aspart (Novolog) 0 unit SUBCUT TIDAC [facility] PRN Reason: Protocol Lisinopril (Prinivil) 40 mg PO DAILY [facility] Morphine Sulfate (Morphine) 2 mg IVPUSH Q2H PRN PRN Reason: Pain (severe 7-10) Stop: 12/25/17 22:21 Ondansetron HCl (Zofran Odt) 4 mg PO Q4H PRN PRN Reason: nausea, able to take PO Last Admin: 12/24/17 23:42 Dose: 4 mg Ondansetron HCl (Zofran) 4 mg IVPUSH Q4H PRN PRN Reason: Nausea Oxycodone HCl (Oxycodone) 5 mg PO Q4H PRN PRN Reason: Pain (moderate 4-6) Fluticasone/Salmeterol (Advair Diskus 100-50) 0 puff INH BID RA Temazepam (Restoril) 15 mg PO BEDTIME PRN PRN Reason: Sleep Discontinued Medications Sodium Chloride (Normal Saline) 1,000 mls @ 999 mls/hr IV STAT ONE Stop: 12/24/17 20:53 Last Admin: 12/24/17 20:02 Dose: 999 mls/hr Insulin Human Regular (Novolin R) 10 unit IVPUSH ONETIME STA PRN Reason: Protocol Stop: 12/25/17 06:31 Last Admin: 12/25/17 06:39 Dose: 10 unit Insulin Human Regular (Novolin R) 10 unit IVPUSH ONETIME STA PRN Reason: Protocol Stop: 12/25/17 07:40 Last Admin: 12/25/17 07:56 Dose: 10 units - Exam Quality Assessment: DVT Prophylaxis General: Alert, Oriented, Cooperative, No Acute Distress HEENT: Pupils Equal, Pupils Reactive, EOMI, Mucous Membr. Moist/[place] Neck: Supple, Trachea Midline, No JVD Lungs: Clear to Auscultation, Normal Respiratory Effort Cardiovascular: Regular Rate, Regular Rhythm GI/Abdominal Exam: Normal Bowel Sounds, Soft, Non-Tender, No Organomegaly, No Distention (Female) Exam: Deferred Back Exam: Normal Inspection Extremities: Normal Inspection, Non-Tender, No Pedal Edema, Normal Capillary Refill Peripheral Pulses: 2+: Radial (L), Radial (R), Posterior Tibial (L), Posterior Tibial (R), Dorsalis Pedis (L), Dorsalis Pedis (R) Skin: Warm, Dry, Intact Neurological: No New Focal Deficit Psy/Mental Status: Alert, Normal Affect, Normal Mood - Problem List & Annotations (1) COPD (chronic obstructive pulmonary disease) SNOMED Code(s): 87385202 Code(s): J44.9 - CHRONIC OBSTRUCTIVE PULMONARY DISEASE, UNSPECIFIED Status : Chronic Priority: Medium Current Visit: Yes Qualifiers: COPD type: unspecified COPD Qualified Code(s): J44.9 - Chronic obstructive pulmonary disease, unspecified (2) Hypoglycemia SNOMED Code(s): 016235007 Code(s): E16.2 - HYPOGLYCEMIA, UNSPECIFIED Status: Resolved Priority: High Current Visit: Yes (3) Hypertension SNOMED Code(s): 24972327 Code(s): I10 - ESSENTIAL (PRIMARY) HYPERTENSION Status: Chronic Priority : Medium Current Visit: Yes Qualifiers: Hypertension type: essential hypertension Qualified Code(s): I10 - Essential (primary) hypertension (4) Serum creatinine raised SNOMED Code(s): 133225897 Code(s): R79.89 - OTHER SPECIFIED ABNORMAL FINDINGS OF BLOOD CHEMISTRY Status: Chronic Priority: Medium Current Visit: Yes (5) DM type 1 (diabetes mellitus, type 1) SNOMED Code(s): 73515246 Code(s): E10.9 - TYPE 1 DIABETES MELLITUS WITHOUT COMPLICATIONS Status: Chronic Priority: High Current Visit: Yes Qualifiers: Diabetes mellitus complication status: with unspecified complications Qualified Code(s): E10.8 - Type 1 diabetes mellitus with unspecified complications (6) Smoker SNOMED Code(s): 27466662 Code(s): F17.200 - NICOTINE DEPENDENCE, UNSPECIFIED, UNCOMPLICATED Status: Chronic Priority: Medium Current Visit: Yes (7) Hyperglycemia due to type 1 diabetes mellitus SNOMED Code(s): 439747423148005 Code(s): E10.65 - TYPE 1 DIABETES MELLITUS WITH HYPERGLYCEMIA Status: Acute Priority: High Current Visit: Yes - Problem List Review Problem List Initiated/Reviewed/Updated: Yes - My Orders Last 24 Hours: My Active Orders 12/24/17 21:11 Telemetry Monitoring [Cardiac Monitoring] [RC] Q8H 12/24/17 22:00 Heparin Sodium 5,000 units SUBCUT Q12H 12/24/17 22:19 Patient Status [ADT] Routine Oxygen Therapy [RC] PRN Up With Assistance [RC] ASDIRECTED VTE/DVT Education [RC] PER UNIT ROUTINE Vital Signs [RC] Q4H Consult to Diabetic Nurse Specialist [CONS] Routine CDIFF TOX A+B [OP] Routine CULTURE STOOL + CAMPY+SHIGATOX [RM] Routine Acetaminophen [Tylenol] 650 mg PO Q4H PRN Morphine 2 mg IVPUSH Q2H PRN Ondansetron [Zofran ODT] 4 mg PO Q4H PRN Ondansetron [Zofran] 4 mg IVPUSH Q4H PRN Temazepam [Restoril] 15 mg PO BEDTIME PRN oxyCODONE 5 mg PO Q4H PRN Resuscitation Status Routine 12/24/17 22:20 Antiembolic Devices [RC] PER UNIT ROUTINE Intake and Output [RC] QSHIFT Sequential Compression Device [OM.PC] Per Unit Routine 12/24/17 22:30 amLODIPine [Norvasc] 10 mg PO DAILY 12/24/17 23:20 CULTURE URINE [RM] Stat 12/25/17 07:30 Accu Check [Blood Glucose Check, Bedside] [RC] TIDAC Insulin Aspart [NovoLOG] See Protocol SUBCUT TIDAC 12/25/17 08:00 Furosemide [Lasix] 20 mg PO BIDDIURETIC 12/25/17 08:06 Magnesium Sulfate/Water [Magnesium Sulfate 4 GM in Water 100 ML] 4 gm Premix Bag 1 bag IV ONETIME 12/25/17 09:00 Aspirin [Ecotrin] 325 mg PO DAILY Fluticasone/Salmeterol [Advair Diskus 100-50] 0 puff INH BID Lisinopril [Prinivil] 40 mg PO DAILY buPROPion [Wellbutrin SR] 150 mg PO BID 12/26/17 05:11 BASIC METABOLIC PANEL,BMP [CHEM] AM CBC WITH AUTO DIFF [HEME] AM 12/27/17 05:11 BASIC METABOLIC PANEL,BMP [CHEM] AM CBC WITH AUTO DIFF [HEME] AM - Plan Plan:: 62-year-old female admitted 12/24/17 for hypoglycemia in a type I diabetic with past medical history of hypertension and COPD current smoker. Hypoglycemia: Resolved. Hyperglycemic overnight with pump deactivated. Did eat at 0100 and no blood sugar check so was high this am. Dulce Maria, nurse diabetic specialist saw this am and restarted pump after decreasing settings. Will watch this morning and afternoon. If sugars improved will possible discharge this afternoon. Did talk with patient and daughter about mildly elevated creatinine most likely being secondary to beginning stages of chronic kidney disease secondary to her type 1 diabetes. We'll monitor patient will most likely benefit from nephrology eval in the future. Hypertension: Stable cont. home meds, following up with Dr. Kwong, [employer] early this next month. COPD: Currently stable cont. home meds. VTE proph: SCD, Heparin Dispo: This afternoon or tomorrow pending.
[2017-12-25] MEDS: Insulin Aspart 100 Units/ML 3 ML Pen SUBCUT SCH ×2 (08:18→12:27)
[2017-12-25] MEDS: amLODIPine 5 MG Tab PO SCH (08:23)
[2017-12-25] MEDS ORDERED: Fluticasone/Salmeterol 100-50 MCG Inhalation Powder 14/Diskus INH SCH (09:00)
[2017-12-25] MEDS ORDERED: Lisinopril 10 MG Tab PO SCH (09:00)
[2017-12-25] MEDS ORDERED: Aspirin 325 MG Tab.EC PO SCH (09:00)
[2017-12-25] MEDS ORDERED: buPROPion 150 MG Tab.SR PO SCH (09:00)
[2017-12-25] MEDS ORDERED: Insulin Regular, Human 100 Units/ML 10 ML Vial IVPUSH ONE (09:10)
[2017-12-25] MEDS: Heparin Sodium 5,000 Units/ML Vial SUBCUT SCH (09:50)
[2017-12-25 12:15] VITALS: BP 130/63
--- NOTE | 2017-12-25 15:43 | PCM.DCSUM1 ---
Discharge Summary - Hospital Course HPI Initial Comments: 62-year-old female admitted 12/24/17 for hypoglycemia in a type I diabetic with past medical history of hypertension and COPD current smoker. Brief History: Patient stated that approximately 3 weeks prior to admission she was started on an insulin pump. Since that time she's been having problems with low blood sugars. She admitted to seeing the community nutrition educator on day of admission for adjustment and believes that the basal rates were decreased. Patient stated that she had episodes of sugars in the 30s with associated syncopal event and altered mental status. Her daughter brought her into the emergency room for further evaluation. Patient reported that she's been eating normally. She did admit to having a "cold". She also had diarrhea this past week that she reported was getting better. She did also admit to some mild swelling in her legs. Patient denied any chest pain, palpitations, shortness of breath, nausea, vomiting, abdominal pain, leg pain, or new focal neurologic deficits. Patient is still a current smoker with a 40+ pack yr history and has a history of COPD. Stated that she is down to 1 cigarette every few days when she is stressed. She also has been seeing Dr. Kwong, technical services analyst for her hypertension. They believe they have another appointment with him on January 18 or of this coming month. - Discharge Data Discharge Date: 12/25/17 Discharge Disposition: Home, Self-Care 01 Condition: Good - Discharge Diagnosis/Problem(s) (1) COPD (chronic obstructive pulmonary disease) SNOMED Code(s): 90858108 ICD Code: J44.9 - CHRONIC OBSTRUCTIVE PULMONARY DISEASE, UNSPECIFIED Status : Chronic Priority: Medium Qualifiers: COPD type: unspecified COPD Qualified Code(s): J44.9 - Chronic obstructive pulmonary disease, unspecified (2) Hypoglycemia SNOMED Code(s): 030783545 ICD Code: E16.2 - HYPOGLYCEMIA, UNSPECIFIED Status: Resolved Priority: High (3) Hypertension SNOMED Code(s): 78275287 ICD Code: I10 - ESSENTIAL (PRIMARY) HYPERTENSION Status: Chronic Priority : Medium Qualifiers: Hypertension type: essential hypertension Qualified Code(s): I10 - Essential (primary) hypertension (4) Serum creatinine raised SNOMED Code(s): 275042352 ICD Code: R79.89 - OTHER SPECIFIED ABNORMAL FINDINGS OF BLOOD CHEMISTRY Status: Chronic Priority: Medium (5) DM type 1 (diabetes mellitus, type 1) SNOMED Code(s): 30380465 ICD Code: E10.9 - TYPE 1 DIABETES MELLITUS WITHOUT COMPLICATIONS Status: Chronic Priority: High Qualifiers: Diabetes mellitus complication status: with unspecified complications Qualified Code(s): E10.8 - Type 1 diabetes mellitus with unspecified complications (6) Smoker SNOMED Code(s): 91400650 ICD Code: F17.200 - NICOTINE DEPENDENCE, UNSPECIFIED, UNCOMPLICATED Status : Chronic Priority: Medium (7) Hyperglycemia due to type 1 diabetes mellitus SNOMED Code(s): 067054598947056 ICD Code: E10.65 - TYPE 1 DIABETES MELLITUS WITH HYPERGLYCEMIA Status: Resolved Priority: High - Patient Summary/Data Consults: Consultations 12/24/17 22:19 Consult to Diabetic Nurse Specialist [CONS] Routine - Patient Instructions Diet: Heart Healthy Diet, Diabetic Diet Activity: Rest and Relax Today Driving: Do Not Drive Showering/Bathing: May Shower Notify Provider of: Fever, Increased Pain, Nausea and/or Vomiting Other/Special Instructions: Follow-up with Dulce Maria community nutrition educator nurse. Follow- up with Shirley Kingston [facility]. Monitor blood sugars closely. Return to ED if new or worsening symptoms. - Discharge Plan Home Medications: Home Meds Aspirin [Ecotrin] 325 mg PO DAILY 07/13/17 [History] Fluticasone/Salmeterol [Advair 100-50] 1 puff INH BID 12/24/17 [History] Furosemide 20 mg PO BID 12/24/17 [History] Insulin Glarg,Human.Rec.Analog [LantUS Solostar] 1 units SUBCUT DAILY 12/24/17 [ History] Lisinopril [Prinivil] 40 mg PO DAILY 12/24/17 [History] amLODIPine Besylate [Amlodipine Besylate] 10 mg PO DAILY 12/24/17 [History] buPROPion HCl [Zyban] 150 mg PO BID 12/24/17 [History] Patient Handouts: Hypoglycemia, [id number] Referrals: Selina Kingston [facility] [Primary Care Provider] - (Please set an appointment after 1 week at [facility].) - Discharge Summary/Plan Comment DC Time >30 min.: Yes Discharge Summary/Plan Comment: 62-year-old female admitted 3/16/18 for hypoglycemia in a type I diabetic with past medical history of hypertension and COPD current smoker. Patient stated that approximately 3 weeks prior to admission she was started on an insulin pump. Since that time she's been having problems with low blood sugars. She admitted to seeing the community nutrition educator on day of admission for adjustment and believes that the basal rates were decreased. Patient stated that she had episodes of sugars in the 30s with associated syncopal event and altered mental status. Her daughter brought her into the emergency room for further evaluation. Patient reported that she's been eating normally. She did admit to having a "cold". She also had diarrhea this past week that she reported was getting better. She did also admit to some mild swelling in her legs. Patient denied any chest pain, palpitations, shortness of breath, nausea, vomiting, abdominal pain, leg pain, or new focal neurologic deficits. Patient is still a current smoker with a 40+ pack yr history and has a history of COPD. Stated that she is down to 1 cigarette every few days when she is stressed. She also has been seeing Dr. Kwong, technical services analyst for her hypertension. They believe they have another appointment with him on January 18 or of this coming month. Emergency department: CBC unremarkable, creatinine mildly elevated at 1.2 previous creatinine on 09/27 and 08/06/17 was 1.4. Mildly elevated AST of 43. Chest x-ray and lumbar spine x-ray unremarkable. CT of the head revealing no intracranial abnormalities or fractures. There were some soft tissue densities within the left maxillary sinus most likely representing sinusitis. She was given 1 L normal saline while in the emergency department. Patient admitted for hypoglycemia in a type I diabetic. Insulin pump was turned off overnight and she was placed on ISS. She did have an episode of hyperglycemia into the 600's which was corrected with a total of 35 units of Insulin. On the following day of admission Dulce Maria, community nutrition educator, did come in and adjust patient's insulin pump. She was observed for the rest of the morning and into the aftenoon and sugars remained in the low 200's and stable. In the afternoon patient and daughter were requesting discharge. They are following up with community nutrition educator on Wednesday of this next week as well as her primary care physician Dr. North. She was discharged in good condition with instructions to continue close blood glucose monitoring as well as follow- up with scheduled appointments and return in the emergency department if she had any new or worsening symptoms. - General Info Date of Service: 12/25/17 Admission Dx/Problem (Free Text: Admission Diagnosis/Problem Admission Diagnosis/Problem Hypoglycemia due to type 1 diabetes mellitus Subjective Update: Episode of hyperglycemia last night. Ate a sandwich at 1 in the morning and did not have her blood sugar checked afterwards. In morning her blood sugar was greater than 500. Patient denies any nausea, vomiting, diarrhea, chest pain, palpitations, shortness breath, syncopal episodes, episodes. She has good appetite and slept overall well last night. Functional Status: Reports: Pain Controlled, Tolerating Diet, Ambulating, Urinating - Review of Systems General: Denies: Fever, Weakness, Fatigue HEENT: Denies: Headaches, Visual Changes Pulmonary: Denies: Shortness of Breath, Hemoptysis Cardiovascular: Denies: Chest Pain, Palpitations Gastrointestinal: Denies: Abdominal Pain, Constipation, Diarrhea, Nausea, Vomiting Genitourinary: Denies: Dysuria, Hematuria Musculoskeletal: Denies: Neck Pain, Leg Pain Skin: Denies: Cyanosis Neurological: Denies: Confusion, Dizziness, Headache Psychiatric: Denies: Confusion - Patient Data Vitals - Most Recent: Last Vital Signs Temp 98.0 F 12/25/17 12:00 Pulse 99 12/25/17 12:00 Resp 14 12/25/17 12:00 BP 130/63 12/25/17 12:00 Pulse Ox 99 12/25/17 12:00 Weight - Most Recent: 54.431 kg I&O - Last 24 hours: Intake & Output 12/25/17 12/25/17 12/25/17 06:59 14:59 22:59 Intake Total 500 100 Output Total 300 Balance 200 100 Lab Results - Last 24 hrs: Laboratory Results - last 24 hr 12/24/17 12/24/17 12/25/17 Range/Units 21:05 23:20 05:00 WBC 10.25 (4.0-11.0) K/uL RBC 3.75 L (4.30-5.90) M/uL Hgb 11.2 L (12.0-16.0) g/dL Hct 35.3 L (36.0-46.0) % MCV 94.1 (80.0-98.0) fL MCH 29.9 (27.0-32.0) pg MCHC 31.7 (31.0-37.0) g/dL RDW Std Deviation 48.0 (28.0-62.0) fl RDW Coeff of Nicolasa 14 (11.0-15.0) % Plt Count 429 H (150-400) K/uL MPV 8.60 (7.40-12.00) fL Neut % (Auto) 77.5 (48.0-80.0) % Lymph % (Auto) 10.8 L (16.0-40.0) % Graham % (Auto) 9.4 (0.0-15.0) % Eos % (Auto) 1.4 (0.0-7.0) % Baso % (Auto) 0.9 (0.0-1.5) % Neut # (Auto) 8.0 H (1.4-5.7) K/uL Lymph # (Auto) 1.1 (0.6-2.4) K/uL Graham # (Auto) 1.0 H (0.0-0.8) K/uL Eos # (Auto) 0.1 (0.0-0.7) K/uL Baso # (Auto) 0.1 (0.0-0.1) K/uL Nucleated RBC % 0.0 /100WBC Nucleated RBCs # 0 K/uL Sodium (136-145) mmol/L Potassium (3.5-5.1) mmol/L Chloride (98-107) mmol/L Carbon Dioxide (21.0-32.0) mmol/L BUN (7.0-18.0) mg/dL Creatinine (0.6-1.0) mg/dL Est Cr Clr Drug Dosing mL/min Estimated GFR (MDRD) ml/min Glucose (74-106) mg/dL POC Glucose 203 H (60-110) mg/dL Calcium (8.5-10.1) mg/dL Phosphorus (2.6-4.7) mg/dL Magnesium (1.5-2.0) mg/dL Urine Color YELLOW Urine Appearance CLEAR Urine pH 6.5 (5.0-8.0) Ur Specific [place] 1.020 (1.001-1.035) Urine Protein >=300 (NEGATIVE) mg/dL Urine Glucose (UA) >=1000 (NEGATIVE) mg/dL Urine Ketones TRACE H (NEGATIVE) mg/dL Urine Occult Blood MODERATE (NEGATIVE) Urine Nitrite NEGATIVE (NEGATIVE) Urine Bilirubin NEGATIVE (NEGATIVE) Urine Urobilinogen 0.2 (<2.0) EU/dL Ur Leukocyte Esterase NEGATIVE (NEGATIVE) Urine RBC 1-2 (0-2/HPF) Urine WBC 0-1 (0-5/HPF) Ur Epithelial Cells RARE (NONE-FEW) Urine Bacteria FEW (NEGATIVE) 12/25/17 12/25/17 12/25/17 Range/Units 05:00 06:18 06:23 WBC (4.0-11.0) K/uL RBC (4.30-5.90) M/uL Hgb (12.0-16.0) g/dL Hct (36.0-46.0) % MCV (80.0-98.0) fL MCH (27.0-32.0) pg MCHC (31.0-37.0) g/dL RDW Std Deviation (28.0-62.0) fl RDW Coeff of Nicolasa (11.0-15.0) % Plt Count (150-400) K/uL MPV (7.40-12.00) fL Neut % (Auto) (48.0-80.0) % Lymph % (Auto) (16.0-40.0) % Graham % (Auto) (0.0-15.0) % Eos % (Auto) (0.0-7.0) % Baso % (Auto) (0.0-1.5) % Neut # (Auto) (1.4-5.7) K/uL Lymph # (Auto) (0.6-2.4) K/uL Graham # (Auto) (0.0-0.8) K/uL Eos # (Auto) (0.0-0.7) K/uL Baso # (Auto) (0.0-0.1) K/uL Nucleated RBC % /100WBC Nucleated RBCs # K/uL Sodium 132 L (136-145) mmol/L Potassium 5.9 H (3.5-5.1) mmol/L Chloride 100 (98-107) mmol/L Carbon Dioxide 21.0 (21.0-32.0) mmol/L BUN 26 H (7.0-18.0) mg/dL Creatinine 1.4 H (0.6-1.0) mg/dL Est Cr Clr Drug Dosing 34.88 mL/min Estimated GFR (MDRD) 37.9 ml/min Glucose 633 H* (74-106) mg/dL POC Glucose > 500 H > 500 H (60-110) mg/dL Calcium 8.4 L (8.5-10.1) mg/dL Phosphorus 3.6 (2.6-4.7) mg/dL Magnesium 1.4 L (1.5-2.0) mg/dL Urine Color Urine Appearance Urine pH (5.0-8.0) Ur Specific [place] (1.001-1.035) Urine Protein (NEGATIVE) mg/dL Urine Glucose (UA) (NEGATIVE) mg/dL Urine Ketones (NEGATIVE) mg/dL Urine Occult Blood (NEGATIVE) Urine Nitrite (NEGATIVE) Urine Bilirubin (NEGATIVE) Urine Urobilinogen (<2.0) EU/dL Ur Leukocyte Esterase (NEGATIVE) Urine RBC (0-2/HPF) Urine WBC (0-5/HPF) Ur Epithelial Cells (NONE-FEW) Urine Bacteria (NEGATIVE) 12/25/17 12/25/17 12/25/17 Range/Units 07:36 09:07 10:27 WBC (4.0-11.0) K/uL RBC (4.30-5.90) M/uL Hgb (12.0-16.0) g/dL Hct (36.0-46.0) % MCV (80.0-98.0) fL MCH (27.0-32.0) pg MCHC (31.0-37.0) g/dL RDW Std Deviation (28.0-62.0) fl RDW Coeff of Nicolasa (11.0-15.0) % Plt Count (150-400) K/uL MPV (7.40-12.00) fL Neut % (Auto) (48.0-80.0) % Lymph % (Auto) (16.0-40.0) % Graham % (Auto) (0.0-15.0) % Eos % (Auto) (0.0-7.0) % Baso % (Auto) (0.0-1.5) % Neut # (Auto) (1.4-5.7) K/uL Lymph # (Auto) (0.6-2.4) K/uL Graham # (Auto) (0.0-0.8) K/uL Eos # (Auto) (0.0-0.7) K/uL Baso # (Auto) (0.0-0.1) K/uL Nucleated RBC % /100WBC Nucleated RBCs # K/uL Sodium (136-145) mmol/L Potassium (3.5-5.1) mmol/L Chloride (98-107) mmol/L Carbon Dioxide (21.0-32.0) mmol/L BUN (7.0-18.0) mg/dL Creatinine (0.6-1.0) mg/dL Est Cr Clr Drug Dosing mL/min Estimated GFR (MDRD) ml/min Glucose (74-106) mg/dL POC Glucose > 500 H > 500 H 324 H (60-110) mg/dL Calcium (8.5-10.1) mg/dL Phosphorus (2.6-4.7) mg/dL Magnesium (1.5-2.0) mg/dL Urine Color Urine Appearance Urine pH (5.0-8.0) Ur Specific [place] (1.001-1.035) Urine Protein (NEGATIVE) mg/dL Urine Glucose (UA) (NEGATIVE) mg/dL Urine Ketones (NEGATIVE) mg/dL Urine Occult Blood (NEGATIVE) Urine Nitrite (NEGATIVE) Urine Bilirubin (NEGATIVE) Urine Urobilinogen (<2.0) EU/dL Ur Leukocyte Esterase (NEGATIVE) Urine RBC (0-2/HPF) Urine WBC (0-5/HPF) Ur Epithelial Cells (NONE-FEW) Urine Bacteria (NEGATIVE) 12/25/17 Range/Units 13:42 WBC (4.0-11.0) K/uL RBC (4.30-5.90) M/uL Hgb (12.0-16.0) g/dL Hct (36.0-46.0) % MCV (80.0-98.0) fL MCH (27.0-32.0) pg MCHC (31.0-37.0) g/dL RDW Std Deviation (28.0-62.0) fl RDW Coeff of Nicolasa (11.0-15.0) % Plt Count (150-400) K/uL MPV (7.40-12.00) fL Neut % (Auto) (48.0-80.0) % Lymph % (Auto) (16.0-40.0) % Graham % (Auto) (0.0-15.0) % Eos % (Auto) (0.0-7.0) % Baso % (Auto) (0.0-1.5) % Neut # (Auto) (1.4-5.7) K/uL Lymph # (Auto) (0.6-2.4) K/uL Graham # (Auto) (0.0-0.8) K/uL Eos # (Auto) (0.0-0.7) K/uL Baso # (Auto) (0.0-0.1) K/uL Nucleated RBC % /100WBC Nucleated RBCs # K/uL Sodium (136-145) mmol/L Potassium (3.5-5.1) mmol/L Chloride (98-107) mmol/L Carbon Dioxide (21.0-32.0) mmol/L BUN (7.0-18.0) mg/dL Creatinine (0.6-1.0) mg/dL Est Cr Clr Drug Dosing mL/min Estimated GFR (MDRD) ml/min Glucose (74-106) mg/dL POC Glucose 267 H (60-110) mg/dL Calcium (8.5-10.1) mg/dL Phosphorus (2.6-4.7) mg/dL Magnesium (1.5-2.0) mg/dL Urine Color Urine Appearance Urine pH (5.0-8.0) Ur Specific [place] (1.001-1.035) Urine Protein (NEGATIVE) mg/dL Urine Glucose (UA) (NEGATIVE) mg/dL Urine Ketones (NEGATIVE) mg/dL Urine Occult Blood (NEGATIVE) Urine Nitrite (NEGATIVE) Urine Bilirubin (NEGATIVE) Urine Urobilinogen (<2.0) EU/dL Ur Leukocyte Esterase (NEGATIVE) Urine RBC (0-2/HPF) Urine WBC (0-5/HPF) Ur Epithelial Cells (NONE-FEW) Urine Bacteria (NEGATIVE) Med Orders - Current: Current Medications Acetaminophen (Tylenol) 650 mg PO Q4H PRN PRN Reason: Pain (Mild 1-3)/fever Amlodipine Besylate (Norvasc) 10 mg PO DAILY [facility] Last Admin: 12/25/17 08:23 Dose: 10 mg Aspirin (Ecotrin) 325 mg PO DAILY [facility] Last Admin: 12/25/17 08:23 Dose: 325 mg Bupropion HCl (Wellbutrin Sr) 150 mg PO BID [facility] Last Admin: 12/25/17 08:23 Dose: 150 mg Furosemide (Lasix) 20 mg PO BIDDIURETIC [facility] Last Admin: 12/25/17 15:01 Dose: 20 mg Heparin Sodium (Porcine) (Heparin Sodium) 5,000 units SUBCUT Q12H [facility] Last Admin: 12/25/17 09:50 Dose: 5,000 units Lisinopril (Prinivil) 40 mg PO DAILY [facility] Last Admin: 12/25/17 08:26 Dose: 40 mg Morphine Sulfate (Morphine) 2 mg IVPUSH Q2H PRN PRN Reason: Pain (severe 7-10) Stop: 12/25/17 22:21 Ondansetron HCl (Zofran Odt) 4 mg PO Q4H PRN PRN Reason: nausea, able to take PO Last Admin: 12/24/17 23:42 Dose: 4 mg Ondansetron HCl (Zofran) 4 mg IVPUSH Q4H PRN PRN Reason: Nausea Oxycodone HCl (Oxycodone) 5 mg PO Q4H PRN PRN Reason: Pain (moderate 4-6) Fluticasone/Salmeterol (Advair Diskus 100-50) 0 puff INH BID [facility] Last Admin: 12/25/17 09:29 Dose: 1 puff Temazepam (Restoril) 15 mg PO BEDTIME PRN PRN Reason: Sleep Discontinued Medications Sodium Chloride (Normal Saline) 1,000 mls @ 999 mls/hr IV STAT ONE Stop: 12/24/17 20:53 Last Admin: 12/24/17 20:02 Dose: 999 mls/hr Magnesium Sulfate 4 gm/ Premix 100 mls @ 25 mls/hr IV ONETIME ONE Stop: 12/25/17 12:05 Last Admin: 12/25/17 08:21 Dose: 25 mls/hr Insulin Aspart (Novolog) 0 unit SUBCUT TIDAC [facility] PRN Reason: Protocol Last Admin: 12/25/17 12:27 Dose: Not Given Insulin Human Regular (Novolin R) 10 unit IVPUSH ONETIME STA PRN Reason: Protocol Stop: 12/25/17 06:31 Last Admin: 12/25/17 06:39 Dose: 10 unit Insulin Human Regular (Novolin R) 10 unit IVPUSH ONETIME STA PRN Reason: Protocol Stop: 12/25/17 07:40 Last Admin: 12/25/17 07:56 Dose: 10 units Insulin Human Regular (Novolin R) 15 unit IVPUSH ONETIME ONE PRN Reason: Protocol Stop: 12/25/17 09:11 Last Admin: 12/25/17 09:28 Dose: 15 units - Exam Quality Assessment: Reports: DVT Prophylaxis General: Reports: Alert, Oriented, Cooperative, No Acute Distress HEENT: Reports: Pupils Equal, Pupils Reactive, EOMI, Mucous Membr. Moist/[place] Neck: Reports: Supple Lungs: Reports: Clear to Auscultation, Normal Respiratory Effort Cardiovascular: Reports: Regular Rate, Regular Rhythm GI/Abdominal Exam: Normal Bowel Sounds, Soft, Non-Tender, No Organomegaly, No Distention (Female) Exam: Deferred Rectal (Female) Exam: Deferred Back Exam: Reports: Normal Inspection Extremities: Normal Inspection, Non-Tender, No Pedal Edema, Normal Capillary Refill Skin: Reports: Warm, Dry, Intact Neurological: Reports: No New Focal Deficit Psy/Mental Status: Reports: Alert, Normal Affect, Normal Mood *Q Meaningful Use (DIS) - VTE *Q VTE Criteria *Q: - Stroke *Q Stroke Criteria *Q: - AMI *Q AMI Criteria *Q:
--- NOTE | 2017-12-27 12:50 | CT ---
EXAM DATE: 12/24/17 PATIENT'S AGE: 62 Patient: NOLBERTO VELASCO Facility: [place], [place] Site . Site : 1955 Study: CT Head [id number]/16/2018 8:35:46 PM Ordering Physician: Doctor Kelley Final Report: INDICATION: FELL TODAY PAIN CT HEAD WITHOUT CONTRAST TECHNIQUE: Multiple axial CT images were performed through the head without intravenous contrast administration. COMPARISON: 07/12/[address] FINDINGS: No acute intracranial hemorrhage is identified. No extra-axial collections are evident and there is no mass effect or midline shift. Ventricles are normal in size and configuration. Brain parenchyma appears normal with unremarkable stallworth-white differentiation. Osseous structures are within normal limits and no fractures are seen. Included portions of the paranasal sinuses show soft tissue density within the left maxillary sinus. The mastoid air cells are normally aerated. IMPRESSION: 1. No intracranial abnormality identified. No fracture is seen. 2. Soft tissue density within the left maxillary sinus is favored to represent sinusitis, with hemorrhage from occult fracture considered less likely. Clinical correlation is suggested. BARBY LOTT MD [employer] Dictated by Luis Felipe Lott MD @ 12/24/2017 8:43:45 PM Dictated by: Luis Felipe Lott MD @ 12/24/2017 20:45:33 (Electronic Signature) Report Signed by Proxy. [facility]
--- NOTE | 2017-12-27 12:52 | CR ---
EXAM DATE: 12/24/17 PATIENT'S AGE: 62 Patient: NOLBERTO VELASCO Facility: [place], [place] Site . Site : 1955 Study: XRay Spine Lumbar [id number]/16/2018 8:48:10 PM Ordering Physician: Doctor Kelley Final Report: INDICATION: fall, pain LUMBAR SPINE FINDINGS: No acute fractures are identified. Disc spaces appear preserved. Osseous alignment is within normal limits aside from minimal dextroscoliosis, and no subluxation is seen. Paravertebral soft tissues are unremarkable. IMPRESSION: No fracture, subluxation, or other acute finding identified. ABRBY CARLOS MD [employer] Dictated by: Luis Felipe Carlos MD @ 12/24/2017 20:57:45 (Electronic Signature) Report Signed by Proxy. [facility]
--- NOTE | 2017-12-27 12:53 | CR ---
EXAM DATE: 12/24/17 PATIENT'S AGE: 62 Patient: NOLBERTO VELASCO Facility: [place], [place] Site . Site : 1955 Study: XRay Chest [id number]/16/2018 8:48:36 PM Ordering Physician: Doctor Kelley Final Report: INDICATION: low blood sugar CHEST, PA AND LATERAL Upright PA and lateral radiographs of the chest were performed. Comparison: 09/27/2017. The lungs appear clear and there are no pleural effusions. Heart size and pulmonary vasculature appear normal. Aortic calcification is again seen. Visualized bones show no significant findings. IMPRESSION: No acute intrathoracic abnormality identified. BARBY CARLOS MD [employer] Dictated by: Luis Felipe Carlos MD @ 12/24/2017 21:00:14 (Electronic Signature) Report Signed by Proxy. [facility]
== END 2017-12-25 16:30 | disposition home or self-care (01) ==
LOC: MW.ED 19:26 → MW.MS 20:56
PROVIDERS: ADMIT Family Medicine; ATTEND Family Medicine
DX: E10.649 Type 1 diabetes mellitus with hypoglycemia without coma (principal); I10 Essential (primary) hypertension; J44.9 Chronic obstructive pulmonary disease, unspecified; F17.210 Nicotine dependence, cigarettes, uncomplicated; R79.89 Other specified abnormal findings of blood chemistry; E10.8 Type 1 diabetes mellitus with unspecified complications; M19.90 Unspecified osteoarthritis, unspecified site; Z79.82 Long term (current) use of aspirin; Z79.51 Long term (current) use of inhaled steroids; Z79.4 Long term (current) use of insulin; Z96.41 Presence of insulin pump (external) (internal)
CPT/HCPCS: 36415; 70450; 71046; 72100; 80048; 80053; 81001; 82962; 83735; 84100; 84484; 85025; 87086; 93005; 96360; 99285; A9270; J1644; J1815; J3475; J7040; 96361; 96365; 96366; 96372; 99283; G0378

== ENCOUNTER 2020-01-14 20:07 | Emergency (ER) | payer MEDICARE, OTHER ==
[2020-01-14 21:17] LABS: BLOOD UREA NITROGEN,BUN 59 mg/dL (7.0-18.0); CHLORIDE,CL 86 mmol/L (98-107); LIPASE 65 U/L (73-393); POTASSIUM,K 6.3 mmol/L (3.5-5.1); SODIUM,NA 122 mmol/L (136-145)
--- NOTE | 2020-01-14 21:19 | EDM.PDOC ---
ED HPI GENERAL MEDICAL PROBLEM - General Chief Complaint: General Stated Complaint: FEVER Time Seen by Provider: 01/14/20 21:16 Source of Information: Reports: Patient, Family History Limitations: Reports: No Limitations - History of Present Illness INITIAL COMMENTS - FREE TEXT/NARRATIVE: Patient 64-year-old female with past medical history of COPD, diabetes, end- stage renal disease on dialysis presenting with a chief complaint of fever, vomiting, diarrhea. His symptoms started on and have progressively worsened. The patient was last dialyzed on Wednesday. Patient was not having dialysis on Wednesday given her symptoms. Patient daughter said they touch base with the cashier credit who said to continue to monitor her and dialyze her on Wednesday. In addition, the patient has been having fevers of 99.9 taken temporally. Other associated symptoms include lewd increased lethargy as well as dry cough. The patient is not complaining of increased shortness of breath but is on 4 L of nasal cannula at home on baseline. The patient has not had any sick contacts that were aware of. Denies any lower extremity swelling. Denies any abdominal pain. Pmhx: Per HPI Pshx: Per chart Family Hx: noncontributory Smoking history? Yes Etoh use? none Drug use? none In addition to that documented in the HPI above, the additional ROS was obtained : Constitutional: Per HPI Eyes: Denies vision changes ENMT: Denies sore throat CV: Denies chest pain Resp: Denies SOB GI: Per HPI : Per HPI, no flank pain MSK: Denies recent trauma Skin: Denies new rashes Neuro: Denies new numbness or tingling or weakness Endocrine: Denies unexpected weight loss Heme: Denies bleeding disorders I have reviewed the triage vital signs Const: Ill in appearance but nontoxic. Patient appears lethargic but is easily arousable to verbal stimulation Eyes: PERRL, no conjunctival injection HENT: NCAT, Neck supple without meningismus CV: RRR, Warm, well-perfused extremities RESP: Bilateral wheezes. No tachypnea no intercostal muscle use, Unlabored respiratory effort GI: soft, non-tender, non-distended, no masses MSK: No gross deformities appreciated Skin: Warm, dry. 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 Sensation and motor function of extremities grossly intact. Psych: Appropriate mood and affect Assessment and plan: Patient 64-year-old female presenting with fever vomiting diarrhea and cough. Patient's initial blood sugar was over 500. Labs were performed as well as chest x-ray. Labs are demonstrating of diabetic ketoacidosis anion gap of 25. Patient had sugar greater than 1200. Initial potassium was 6.3. Her CBC demonstrates lymphopenia. Venous blood gas was metabolic acidosis with elevated lactate. Chest x-ray demonstrated scant bilateral pleural effusions. EKG demonstrated normal sinus rhythm with minimal ST changes anterior leads. Patient did have prolonged QTC interval at 505. In this critically ill patient, the differential diagnosis is broad. Patient meets criteria for diabetic ketoacidosis and will be initiated on insulin drip. Underlying causes of this DKA can include NSTEMI, gastrointestinal infection, pneumonia, coronavirus. The patient's labs did demonstrate elevation of her troponin with a normal EKG. This may demonstrate type II IN secondary to her critical illness. Patient will require serial EKG and troponin for monitoring. Patient was initiated on heparin and given aspirin in the emergency department. For possible pneumonia, the patient initiated on broad-spectrum antibiotics and coronavirus nasopharyngeal swab was sent to rule out. Patient's respirations are such that she does not require any emergent airway intervention but she will require close monitoring for decompensation. For gastrointestinal infection, her abdomen is soft and nontender she has relatively normal LFTs and lipase. This will require cautious use of fluid. For the patient's elevated potassium without significant EKG changes, the patient was given calcium gluconate as well as insulin infusion. Patient will likely require dialysis sooner rather than later with this will help stabilize the cardiac membrane and reduce serum potassium. This case was discussed with [place] physician Dr. Walters who agreed to accept the patient as a direct admit. The patient will be monitored in the ER after medication administration and repeat chemistry will be performed to ensure patient is stable for transport. Repeat chemistry and venous blood gas was stable. Patient had improvement of her potassium to 5.7. 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 Therefore, likelihood that this troponin elevation is due to type II myocardial injury is higher in this patient's critical illness. Patient has remained hemodynamically stable throughout emergency department stay and repeat labs demonstrate the patient is stable for ground transport as she requires no urgent intervention that would require flight. She will be monitored with [facility] paramedics and continued on insulin and heparin drip. Care discussed with patient's daughter Katarzyna via phone who understands the condition of her mother and need for transfer. Critical Care Procedure Note Authorized and Performed by: Dr. David Total critical care time: Approximately 80 minutes Due to a high probability of clinically significant, life threatening deterioration, the patient required my highest level of preparedness to intervene emergently and I personally spent this critical care time directly and personally managing the patient. This critical care time included obtaining a history; examining the patient; pulse oximetry; ordering and review of studies ; arranging urgent treatment with development of a management plan; evaluation of patient's response to treatment; frequent reassessment; and, discussions with other providers. This critical care time was performed to assess and manage the high probability of imminent, life-threatening deterioration that could result in multi-organ failure. It was exclusive of separately billable procedures and treating other patients and teaching time. Please see MDM section and the rest of the note for further information on patient assessment and treatment. - Related Data Allergies Allergy/AdvReac Type Severity Reaction Status Date / Time No Known Allergies Allergy Verified 01/14/20 20:20 Home Meds: Home Meds Fluticasone/Salmeterol [Advair 100-50] 1 puff INH BID 12/24/17 [History] amLODIPine Besylate [Amlodipine Besylate] 10 mg PO BEDTIME 12/24/17 [History] Insulin Lispro [Humalog] 1 unit SQ ASDIRECTED 05/09/18 [History] Albuterol [Ventolin HFA] 1 puff INH Q4H PRN 30 Days #1 inhaler 05/11/18 [Rx] Cholecalciferol (Vitamin D3) [Vitamin D3] 2,000 unit PO DAILY 01/14/20 [History] Insulin Glarg,Human.Rec.Analog [Lantus] 12 units SQ QAM 01/14/20 [History] Magnesium 400 mg PO DAILY 01/14/20 [History] Pantoprazole [ProTONIX] 40 mg PO DAILY 01/14/20 [History] Sertraline [Zoloft] 50 mg PO DAILY 01/14/20 [History] Past Medical History - Past Health History Medical/Surgical History: Denies Medical/Surgical History HEENT History: Reports: Impaired Vision Other HEENT History: wears eye glasses Cardiovascular History: Reports: Hypertension Respiratory History: Reports: SOB Other Respiratory History: Desaturations since dialysis. 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: PAST Musculoskeletal History: Reports: Arthritis Neurological History: Reports: Headaches, Chronic, Migraines, Vertigo Psychiatric History: Reports: Anxiety, Depression Endocrine/Metabolic History: Reports: Diabetes, Type I Other Endocrine/Metabolic History: Diagnosed X 20 years ago Hematologic History: Reports: None Immunologic History: Reports: None Oncologic (Cancer) History: Reports: None Dermatologic History: Reports: None - Infectious Disease History Infectious Disease History: Reports: Hepatitis C - Past Surgical History Head Surgeries/Procedures: Reports: None HEENT Surgical History: Reports: None Cardiovascular Surgical History: Reports: None GI Surgical History: Reports: None Female Surgical History: Reports: Hysterectomy Other Female Surgeries/Procedures: Kidney Disease Endocrine Surgical History: Reports: None Neurological Surgical History: Reports: None Musculoskeletal Surgical History: Reports: None Social & Family History - Family History Family Medical History: Noncontributory - Tobacco Use Smoking Status *Q: Never Smoker - Caffeine Use Caffeine Use: Reports: Coffee - Recreational Drug Use Recreational Drug Use: No - Living Situation & Occupation Living situation: Reports: Alone ED ROS GENERAL - Review of Systems Review Of Systems: See Below ED EXAM, GENERAL - Physical Exam Exam: See Below Course - Vital Signs Last Recorded V/S: Last Vital Signs Temp 36.6 C 01/14/20 23:51 Pulse 96 01/14/20 23:51 Resp 20 01/14/20 23:51 BP 135/57 L 01/14/20 23:51 Pulse Ox 97 01/14/20 23:51 - Orders/Labs/Meds Orders: Active Orders 24 hr Category Date Time Status EKG 12 Lead [EKG Documentation Completion] [RC] STAT Care 01/14/20 20:39 Active EKG Documentation Completion [RC] STAT Care 01/14/20 22:28 Active CORONAVIRUS COVID-19 PCR PHL [MREF] Stat Lab 01/14/20 20:45 Received CULTURE BLOOD [BC] Stat Lab 01/14/20 20:32 Received CULTURE BLOOD [BC] Stat Lab 01/14/20 21:09 Received Heparin Sod,Pork In 0.45% Nacl [Heparin-1/2Ns 25,000 Med 01/14/20 21:45 Active Units/500] 25,000 unit in 500 ml IV TITRATE Insulin Regular, Human [NovoLIN R] 100 unit Med 01/14/20 21:45 Active Sodium Chloride 0.9% [Normal Saline] 99 ml IV TITRATE Blood Culture x2 Reflex Set [OM.PC] Stat Oth 01/14/20 20:54 Ordered Medication Orders Insulin Human Regular 100 unit (/ Sodium Chloride) 100 mls @ 5 mls/hr IV TITRATE RA; Protocol Last Titration: 01/14/20 23:50 Dose: 7 unit/hr, 7 mls/hr Admin: 01/14/20 22:21 Dose: 5 unit/hr, 5 mls/hr Heparin Sodium/Sodium Chloride (Heparin-1/2ns 25,000 Units/500) 25,000 unit in 500 mls @ 12.192 mls/hr IV TITRATE RA; Protocol Last Admin: 01/14/20 23:17 Dose: 12 units/kg/hr, 12.192 mls/hr Labs: Laboratory Tests 01/14/20 01/14/20 01/14/20 Range/Units 20:30 20:32 20:32 WBC 10.81 (4.0-11.0) K/uL RBC 3.17 L (4.30-5.90) M/uL Hgb 9.1 L (12.0-16.0) g/dL Hct 33.9 L (36.0-46.0) % MCV 106.9 H (80.0-98.0) fL MCH 28.7 (27.0-32.0) pg MCHC 26.8 L (31.0-37.0) g/dL RDW Std Deviation 58.4 (28.0-62.0) fl RDW Coeff of Nicolasa 15 (11.0-15.0) % Plt Count 418 H (150-400) K/uL MPV 9.70 (7.40-12.00) fL Add Manual Diff YES Neutrophils % (Manual) 97 H (48.0-80.0) % Lymphocytes % (Manual) 1 L (16.0-40.0) % Monocytes % (Manual) 2 (0.0-15.0) % Nucleated RBC % 0.0 /100WBC Absolute Seg Neuts 10.5 H (1.4-5.7) Lymphocytes # (Manual) 0.1 L (0.6-2.4) Monocytes # (Manual) 0.2 (0.0-0.8) Nucleated RBCs # 0 K/uL INR APTT (18.6-31.3) SEC VBG pH 7.13 L (7.31-7.41) VBG pCO2 26 L (35-45) mmHG VBG pO2 124 H (30-40) mmHG VBG HCO3 8 L (22-30) mEq/L VBG Total CO2 8 L (41-51) mmol/L VBG Base Excess -19.3 L (-3.0-3.0) Lactate (0.20-2.00) mmol/L Sodium (136-145) mmol/L Potassium (3.5-5.1) mmol/L Chloride (98-107) mmol/L Carbon Dioxide (21.0-32.0) mmol/L BUN (7.0-18.0) mg/dL Creatinine (0.6-1.0) mg/dL Est Cr Clr Drug Dosing Estimated GFR (MDRD) ml/min Glucose (74-106) mg/dL POC Glucose > 500 H (60-110) mg/dL Calcium (8.5-10.1) mg/dL Total Bilirubin (0.2-1.0) mg/dL AST (15-37) IU/L ALT (14-63) IU/L Alkaline Phosphatase (46-116) U/L Lactate Dehydrogenase (81-234) U/L Troponin I (0.000-0.056) ng/mL C-Reactive Protein (0.00-0.90) mg/dL Total Protein (6.4-8.2) g/dL Albumin (3.4-5.0) g/dL Globulin (2.6-4.0) g/dL Albumin/Globulin Ratio (0.9-1.6) Lipase (73-393) U/L Ketones (NEG) 01/14/20 01/14/20 01/14/20 Range/Units 20:32 20:32 20:32 WBC (4.0-11.0) K/uL RBC (4.30-5.90) M/uL Hgb (12.0-16.0) g/dL Hct (36.0-46.0) % MCV (80.0-98.0) fL MCH (27.0-32.0) pg MCHC (31.0-37.0) g/dL RDW Std Deviation (28.0-62.0) fl RDW Coeff of Nicolasa (11.0-15.0) % Plt Count (150-400) K/uL MPV (7.40-12.00) fL Add Manual Diff Neutrophils % (Manual) (48.0-80.0) % Lymphocytes % (Manual) (16.0-40.0) % Monocytes % (Manual) (0.0-15.0) % Nucleated RBC % /100WBC Absolute Seg Neuts (1.4-5.7) Lymphocytes # (Manual) (0.6-2.4) Monocytes # (Manual) (0.0-0.8) Nucleated RBCs # K/uL INR APTT (18.6-31.3) SEC VBG pH (7.31-7.41) VBG pCO2 (35-45) mmHG VBG pO2 (30-40) mmHG VBG HCO3 (22-30) mEq/L VBG Total CO2 (41-51) mmol/L VBG Base Excess (-3.0-3.0) Lactate 2.8 H* (0.20-2.00) mmol/L Sodium 122 L (136-145) mmol/L Potassium 6.3 H (3.5-5.1) mmol/L Chloride 86 L (98-107) mmol/L Carbon Dioxide 11.0 L (21.0-32.0) mmol/L BUN 59 H (7.0-18.0) mg/dL Creatinine 5.7 H (0.6-1.0) mg/dL Est Cr Clr Drug Dosing TNP Estimated GFR (MDRD) 7.4 ml/min Glucose 1212 H* (74-106) mg/dL POC Glucose (60-110) mg/dL Calcium 7.7 L (8.5-10.1) mg/dL Total Bilirubin 0.5 (0.2-1.0) mg/dL AST 16 (15-37) IU/L ALT 13 L (14-63) IU/L Alkaline Phosphatase 136 H (46-116) U/L Lactate Dehydrogenase (81-234) U/L Troponin I (0.000-0.056) ng/mL C-Reactive Protein (0.00-0.90) mg/dL Total Protein 6.0 L (6.4-8.2) g/dL Albumin 2.2 L (3.4-5.0) g/dL Globulin 3.8 (2.6-4.0) g/dL Albumin/Globulin Ratio 0.6 L (0.9-1.6) Lipase 65 L (73-393) U/L Ketones MODERATE H (NEG) 01/14/20 01/14/20 01/14/20 Range/Units 20:32 20:32 20:32 WBC (4.0-11.0) K/uL RBC (4.30-5.90) M/uL Hgb (12.0-16.0) g/dL Hct (36.0-46.0) % MCV (80.0-98.0) fL MCH (27.0-32.0) pg MCHC (31.0-37.0) g/dL RDW Std Deviation (28.0-62.0) fl RDW Coeff of Nicolasa (11.0-15.0) % Plt Count (150-400) K/uL MPV (7.40-12.00) fL Add Manual Diff Neutrophils % (Manual) (48.0-80.0) % Lymphocytes % (Manual) (16.0-40.0) % Monocytes % (Manual) (0.0-15.0) % Nucleated RBC % /100WBC Absolute Seg Neuts (1.4-5.7) Lymphocytes # (Manual) (0.6-2.4) Monocytes # (Manual) (0.0-0.8) Nucleated RBCs # K/uL INR APTT (18.6-31.3) SEC VBG pH (7.31-7.41) VBG pCO2 (35-45) mmHG VBG pO2 (30-40) mmHG VBG HCO3 (22-30) mEq/L VBG Total CO2 (41-51) mmol/L VBG Base Excess (-3.0-3.0) Lactate (0.20-2.00) mmol/L Sodium (136-145) mmol/L Potassium (3.5-5.1) mmol/L Chloride (98-107) mmol/L Carbon Dioxide (21.0-32.0) mmol/L BUN (7.0-18.0) mg/dL Creatinine (0.6-1.0) mg/dL Est Cr Clr Drug Dosing Estimated GFR (MDRD) ml/min Glucose (74-106) mg/dL POC Glucose (60-110) mg/dL Calcium (8.5-10.1) mg/dL Total Bilirubin (0.2-1.0) mg/dL AST (15-37) IU/L ALT (14-63) IU/L Alkaline Phosphatase (46-116) U/L Lactate Dehydrogenase 239 H (81-234) U/L Troponin I 0.624 H* (0.000-0.056) ng/mL C-Reactive Protein 2.20 H (0.00-0.90) mg/dL Total Protein (6.4-8.2) g/dL Albumin (3.4-5.0) g/dL Globulin (2.6-4.0) g/dL Albumin/Globulin Ratio (0.9-1.6) Lipase (73-393) U/L Ketones (NEG) 01/14/20 01/14/20 01/14/20 Range/Units 20:32 22:58 22:58 WBC (4.0-11.0) K/uL RBC (4.30-5.90) M/uL Hgb (12.0-16.0) g/dL Hct (36.0-46.0) % MCV (80.0-98.0) fL MCH (27.0-32.0) pg MCHC (31.0-37.0) g/dL RDW Std Deviation (28.0-62.0) fl RDW Coeff of Nicolasa (11.0-15.0) % Plt Count (150-400) K/uL MPV (7.40-12.00) fL Add Manual Diff Neutrophils % (Manual) (48.0-80.0) % Lymphocytes % (Manual) (16.0-40.0) % Monocytes % (Manual) (0.0-15.0) % Nucleated RBC % /100WBC Absolute Seg Neuts (1.4-5.7) Lymphocytes # (Manual) (0.6-2.4) Monocytes # (Manual) (0.0-0.8) Nucleated RBCs # K/uL INR 1.04 APTT (18.6-31.3) SEC VBG pH 7.16 L (7.31-7.41) VBG pCO2 26 L (35-45) mmHG VBG pO2 81 H (30-40) mmHG VBG HCO3 9 L (22-30) mEq/L VBG Total CO2 9 L (41-51) mmol/L VBG Base Excess -17.7 L (-3.0-3.0) Lactate (0.20-2.00) mmol/L Sodium 124 L (136-145) mmol/L Potassium 5.7 H (3.5-5.1) mmol/L Chloride 86 L (98-107) mmol/L Carbon Dioxide 9.9 L (21.0-32.0) mmol/L BUN 62 H (7.0-18.0) mg/dL Creatinine 5.9 H (0.6-1.0) mg/dL Est Cr Clr Drug Dosing 7.52 Estimated GFR (MDRD) 7.2 ml/min Glucose 1202 H* (74-106) mg/dL POC Glucose (60-110) mg/dL Calcium 8.3 L (8.5-10.1) mg/dL Total Bilirubin (0.2-1.0) mg/dL AST (15-37) IU/L ALT (14-63) IU/L Alkaline Phosphatase (46-116) U/L Lactate Dehydrogenase (81-234) U/L Troponin I 0.880 H* (0.000-0.056) ng/mL C-Reactive Protein (0.00-0.90) mg/dL Total Protein (6.4-8.2) g/dL Albumin (3.4-5.0) g/dL Globulin (2.6-4.0) g/dL Albumin/Globulin Ratio (0.9-1.6) Lipase (73-393) U/L Ketones (NEG) 01/14/20 Range/Units 22:58 WBC (4.0-11.0) K/uL RBC (4.30-5.90) M/uL Hgb (12.0-16.0) g/dL Hct (36.0-46.0) % MCV (80.0-98.0) fL MCH (27.0-32.0) pg MCHC (31.0-37.0) g/dL RDW Std Deviation (28.0-62.0) fl RDW Coeff of Nicolasa (11.0-15.0) % Plt Count (150-400) K/uL MPV (7.40-12.00) fL Add Manual Diff Neutrophils % (Manual) (48.0-80.0) % Lymphocytes % (Manual) (16.0-40.0) % Monocytes % (Manual) (0.0-15.0) % Nucleated RBC % /100WBC Absolute Seg Neuts (1.4-5.7) Lymphocytes # (Manual) (0.6-2.4) Monocytes # (Manual) (0.0-0.8) Nucleated RBCs # K/uL INR APTT 30.5 (18.6-31.3) SEC VBG pH (7.31-7.41) VBG pCO2 (35-45) mmHG VBG pO2 (30-40) mmHG VBG HCO3 (22-30) mEq/L VBG Total CO2 (41-51) mmol/L VBG Base Excess (-3.0-3.0) Lactate (0.20-2.00) mmol/L Sodium (136-145) mmol/L Potassium (3.5-5.1) mmol/L Chloride (98-107) mmol/L Carbon Dioxide (21.0-32.0) mmol/L BUN (7.0-18.0) mg/dL Creatinine (0.6-1.0) mg/dL Est Cr Clr Drug Dosing Estimated GFR (MDRD) ml/min Glucose (74-106) mg/dL POC Glucose (60-110) mg/dL Calcium (8.5-10.1) mg/dL Total Bilirubin (0.2-1.0) mg/dL AST (15-37) IU/L ALT (14-63) IU/L Alkaline Phosphatase (46-116) U/L Lactate Dehydrogenase (81-234) U/L Troponin I (0.000-0.056) ng/mL C-Reactive Protein (0.00-0.90) mg/dL Total Protein (6.4-8.2) g/dL Albumin (3.4-5.0) g/dL Globulin (2.6-4.0) g/dL Albumin/Globulin Ratio (0.9-1.6) Lipase (73-393) U/L Ketones (NEG) Meds: Medications Generic Name Dose Route Start Last Admin Trade Name Freq PRN Reason Stop Dose Admin Insulin Human Regular 100 unit 100 mls @ 5 mls/hr 01/14/20 21:45 01/14/20 23: 50 / Sodium Chloride IV 7 unit/hr TITRATE RA 7 mls/hr Titration Protocol 5 UNIT/HR Heparin Sodium/Sodium Chloride 25,000 unit in 500 mls @ 12.192 mls/hr 21:45 01/14/20 23:17 Heparin-1/2ns 25,000 Units/500 IV 12 units/kg/hr TITRATE RA 12.192 mls/hr Administration Protocol 12 UNITS/KG/HR Discontinued Medications Generic Name Dose Route Start Last Admin Trade Name Selvinq PRN Reason Stop Dose Admin Aspirin 324 mg 01/14/20 21:39 01/14/20 21:47 Aspirin PO 01/14/20 21:40 324 mg ONETIME ONE Administration Calcium Gluconate 1 gm 01/14/20 21:29 01/14/20 21:49 Calcium Gluconate IV 01/14/20 21:30 1 gm ONETIME ONE Administration Heparin Sodium (Porcine) 3,000 units 01/14/20 23:02 01/14/20 23:14 Heparin Sodium IVPUSH 01/14/20 23:03 3,000 units ONETIME ONE Administration Cefepime HCl 1 gm/ Premix 50 mls @ 100 mls/hr 01/14/20 21:32 01/14/20 22:20 IV 01/14/20 22:01 Not Given ONETIME ONE Cefepime HCl 1 gm/ Dextrose/ 100 mls @ 200 mls/hr 01/14/20 22:00 01/14/20 22: 16 Water IV 01/14/20 22:29 200 mls/hr ONETIME ONE Administration Heparin Sodium/Sodium Chloride Confirm 01/14/20 22:40 01/14/20 23:20 Heparin-1/2ns 25,000 Units/500 Administered 01/14/20 22:41 Not Given Dose 25,000 unit in 500 mls @ as directed IV .STK-MED ONE Insulin Human Regular 5 unit 01/14/20 21:40 01/14/20 21:45 Novolin R IVPUSH 01/14/20 21:41 5 units ONETIME ONE Administration Protocol Insulin Human Regular Confirm 01/14/20 21:41 01/14/20 22:21 Novolin R Administered 01/14/20 21:42 Not Given Dose 1,000 unit .ROUTE .STK-MED ONE Departure - Departure Time of Disposition: 23:58 Disposition: DC/[facility]fer to [facility] 02 Clinical Impression: DKA (diabetic ketoacidoses) Qualifiers: Diabetes mellitus type: other specified (including ATIYA) Diabetes mellitus complication detail: without coma Qualified Code(s): E13.10 - Other specified diabetes mellitus with ketoacidosis without coma - Discharge Information Referrals: Cabrera Machado MD [Primary Care Provider] - Forms: ED Department Discharge Sepsis Event Note - Evaluation Sepsis Screening Result: No Definite Risk - Focused Exam Vital Signs: Vital Signs Temp Pulse Resp BP Pulse Ox 01/14/20 23:51 36.6 C 96 20 135/57 L 97 01/14/20 23:21 94 16 131/57 L 97 01/14/20 22:28 107 H 21 H 137/58 L 99 01/14/20 21:50 105 H 26 H 128/54 L 100 01/14/20 20:24 36.6 C 107 H 19 120/50 L 99 Date Exam was Performed: 01/14/20 Time Exam was Performed: 23:55 - My Orders Last 24 Hours: My Active Orders 01/14/20 20:32 CULTURE BLOOD [BC] Stat 01/14/20 20:39 EKG 12 Lead [EKG Documentation Completion] [RC] STAT 01/14/20 20:45 CORONAVIRUS COVID-19 PCR PHL [MREF] Stat 01/14/20 20:54 Blood Culture x2 Reflex Set [OM.PC] Stat 01/14/20 21:09 CULTURE BLOOD [BC] Stat 01/14/20 21:45 Heparin Sod,Pork In 0.45% Nacl [Heparin-1/2Ns 25,000 Units/500] 25,000 unit in 500 ml IV TITRATE Insulin Regular, Human [NovoLIN R] 100 unit Sodium Chloride 0.9% [Normal Saline] 99 ml IV TITRATE 01/14/20 22:28 EKG Documentation Completion [RC] STAT - Assessment/Plan Last 24 Hours: My Active Orders 01/14/20 20:32 CULTURE BLOOD [BC] Stat 01/14/20 20:39 EKG 12 Lead [EKG Documentation Completion] [RC] STAT 01/14/20 20:45 CORONAVIRUS COVID-19 PCR PHL [MREF] Stat 01/14/20 20:54 Blood Culture x2 Reflex Set [OM.PC] Stat 01/14/20 21:09 CULTURE BLOOD [BC] Stat 01/14/20 21:45 Heparin Sod,Pork In 0.45% Nacl [Heparin-1/2Ns 25,000 Units/500] 25,000 unit in 500 ml IV TITRATE Insulin Regular, Human [NovoLIN R] 100 unit Sodium Chloride 0.9% [Normal Saline] 99 ml IV TITRATE 01/14/20 22:28 EKG Documentation Completion [RC] STAT
[2020-01-14] MEDS ORDERED: Calcium Gluconate 10% 1 GM/10 ML SDV IV ONE (21:29)
[2020-01-14] MEDS ORDERED: Cefepime 1 GM in Premix Bag 1 BAG IV ONE (21:32)
[2020-01-14 21:37] LABS: GLUCOSE RANDOM 1212 mg/dL (74-106)
[2020-01-14] MEDS ORDERED: Aspirin 81 MG Tab.Chew PO ONE (21:39)
[2020-01-14] MEDS ORDERED: Insulin Regular, Human 100 Units/ML 10 ML Vial IVPUSH ONE (21:40)
[2020-01-14] MEDS ORDERED: Insulin Regular, Human 100 Units/ML 10 ML Vial ONE (21:41)
[2020-01-14] MEDS ORDERED: Heparin Sod,Pork In 0.45% Nacl 25,000 UNIT/500 ML IV.SOLN IV SCH (21:45)
--- NOTE | 2020-01-14 21:53 | CR ---
INDICATION: Cough. Shortness of breath. COMPARISON: Chest x-ray dated 09 May 2018. FINDINGS: A single portable chest x-ray shows a right-sided central venous catheter. Normal cardiac silhouette. Atherosclerotic aorta. The lungs show small bilateral pleural effusions. Bibasilar atelectasis. No pneumothorax. IMPRESSION: Small bilateral pleural effusions. Bibasilar atelectasis. Dictated by Donato Lemon MD @ 01/14/2020 9:51:34 PM Dictated by: Donato Lemon MD @ 01/14/2020 21:51:41 (Electronically Signed)
[2020-01-14] MEDS ORDERED: Heparin Sod,Pork In 0.45% Nacl 25,000 UNIT/500 ML IV.SOLN IV ONE (22:40)
[2020-01-14] MEDS ORDERED: Heparin Sodium 5,000 Units/ML Vial IVPUSH ONE (23:02)
[2020-01-14 23:25] LABS: CARBON DIOXIDE,CO2 9.9 mmol/L (21.0-32.0); POTASSIUM,K 5.7 mmol/L (3.5-5.1)
[2020-01-15 01:08] VITALS: BP 131/57; PULSE 92
== END 2020-01-15 01:55 ==
LOC: MW.ED 20:07
DX: E13.10 Other specified diabetes mellitus with ketoacidosis without coma (principal); J44.9 Chronic obstructive pulmonary disease, unspecified; I12.0 Hypertensive chronic kidney disease with stage 5 chronic kidney disease or end stage renal disease; N18.6 End stage renal disease; Z79.4 Long term (current) use of insulin; Z99.2 Dependence on renal dialysis; Z79.899 Other long term (current) drug therapy
CPT/HCPCS: 36415; 71045; 80048; 80053; 82009; 82803; 82962; 83605; 83615; 83690; 84484; 85025; 85610; 85730; 86140; 87040; 93005; 96365; 96366; 96367; 96375; 99291; 99292; A9270; J0610; J0692; J1644; J1815; J7050; J7060; U0002

== ENCOUNTER 2020-03-13 18:06 | Observation (INO) | payer MEDICARE, OTHER ==
[2020-03-13] MEDS ORDERED: Cefepime 2 GM in Premix Bag 1 BAG IV ONE (18:11)
--- NOTE | 2020-03-13 18:15 | EDM.PDOC ---
ED HPI GENERAL MEDICAL PROBLEM <Ru Garg - Last Filed: 03/13/20 19:09> <AhmetJavy - Last Filed: 03/14/20 00:43> - General Chief Complaint: Neuro Symptoms/Deficits Stated Complaint: EMS Time Seen by Provider: 03/13/20 18:10 - History of Present Illness INITIAL COMMENTS - FREE TEXT/NARRATIVE: HISTORY AND PHYSICAL: History of present illness: 64-year-old female end-stage renal disease on hemodialysis (M, W, F), insulin- dependent diabetic, hypertensive presents to the emergency department after family called for low blood sugar. Apparently she was acting abnormal on her way back from dialysis in [place]. She was found to have a low blood sugar and the called 911. Upon arrival of paramedics the patient was seizing. She is a full body tonic-clonic seizure without focal appearance. They were able to establish an IV and give 25 g of dextrose intravenously. Patient is now more awake but confused and cannot give a history. Review of systems: Unable to provide review of systems secondary to altered mental status Past medical history: As per history of present illness and as reviewed below otherwise noncontributory. Surgical history: As per history of present illness and as reviewed below otherwise noncontributory. Social history: No reported history of drug or alcohol abuse. Family history: As per history of present illness and as reviewed below otherwise noncontributory. Physical exam: VITAL SIGNS: Reviewed. GENERAL: Phonically ill-appearing. Confused. Trying to sit up in bed. Nonverbal. Beena Coma Scale shows spontaneous eye opening, localizes pain, and no speech. Total Beena Coma Scale 10 HEAD: No signs of head trauma. EYES: Pupils are equal. Extraocular motions intact. EARS: Hearing grossly intact. MOUTH: Oropharynx is normal. NECK: No adenopathy, no JVD. CHEST: Chest with clear breath sounds bilaterally. No wheezes, rales, or rhonchi. There is a dialysis port on the right upper anterior chest. CARDIAC: Regular rate and rhythm. Normal S1 and S2, without murmurs, gallops, or rubs. VASCULAR: Peripheral pulses normal and equal in all extremities. Left arm has a AV fistula with good bruit ABDOMEN: Soft, without detectable tenderness. No sign of distention. No rebound or guarding, and no masses palpated. MUSCULOSKELETAL: Good range of motion of all major joints. Extremities without clubbing, cyanosis or edema. NEUROLOGIC EXAM: Scale coma scale 10. Getting better per paramedics. No focal or lateralizing symptoms. PSYCHIATRIC: Tended SKIN: No rash or lesions. Initial Differential Diagnosis & Plan: The patient has altered mental status and I considered the following entities in the differential diagnosis: hypoglycemia, electrolyte imbalance, head trauma , intracranial bleed or mass, meningitis sepsis, transient ischemic attack or stroke, toxidrome/intoxication/medication effect, seizure or postictal state, hepatic encephalopathy, acid/base disturbance, hypercapnia. The patient presents with altered mental status and seizure secondary to hypoglycemia. She received IV D50 by paramedics. We will evaluate for infection, other abnormalities, and obtain a chest x-ray and EKG. Definitive disposition and diagnosis as appropriate pending reevaluation and review of above. (Ru Garg) - Related Data Allergies Allergy/AdvReac Type Severity Reaction Status Date / Time No Known Allergies Allergy Verified 03/13/20 22:01 Home Meds: Home Meds amLODIPine Besylate [Amlodipine Besylate] 10 mg PO BEDTIME 12/24/17 [History] Insulin Lispro [Humalog] 1 unit SQ ASDIRECTED 05/09/18 [History] Insulin Glarg,Human.Rec.Analog [Lantus] 12 units SQ QAM 01/14/20 [History] Magnesium 400 mg PO DAILY 01/14/20 [History] Pantoprazole [ProTONIX] 40 mg PO DAILY 01/14/20 [History] Sertraline [Zoloft] 50 mg PO DAILY 01/14/20 [History] Cholecalciferol (Vitamin D3) [D3-2000] 50 mcg PO DAILY 03/13/20 [History] Ondansetron [Zofran] 4 mg PO TID PRN 03/13/20 [History] carvediloL [Carvedilol] 6.25 mg PO BID 03/13/20 [History] Past Medical History - Past Health History Medical/Surgical History: Denies Medical/Surgical History HEENT History: Reports: Impaired Vision Other HEENT History: wears eye glasses Cardiovascular History: Reports: Hypertension Respiratory History: Reports: SOB Other Respiratory History: Desaturations since dialysis. 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 Musculoskeletal History: Reports: Arthritis Neurological History: Reports: Headaches, Chronic, Migraines, Vertigo Psychiatric History: Reports: Anxiety, Depression Endocrine/Metabolic History: Reports: Diabetes, Type I Other Endocrine/Metabolic History: Diagnosed X 20 years ago Hematologic History: Reports: None Immunologic History: Reports: None Oncologic (Cancer) History: Reports: None Dermatologic History: Reports: None - Infectious Disease History Infectious Disease History: Reports: Hepatitis C - Past Surgical History Head Surgeries/Procedures: Reports: None HEENT Surgical History: Reports: None Cardiovascular Surgical History: Reports: None GI Surgical History: Reports: None Female Surgical History: Reports: Hysterectomy Other Female Surgeries/Procedures: Kidney Disease Endocrine Surgical History: Reports: None Neurological Surgical History: Reports: None Musculoskeletal Surgical History: Reports: None <Ru Garg - Last Filed: 03/13/20 19:09> Social & Family History - Family History Family Medical History: Noncontributory - Caffeine Use Caffeine Use: Reports: Coffee - Living Situation & Occupation Living situation: Reports: Alone <Ru Garg - Last Filed: 03/13/20 19:09> ED ROS GENERAL - Review of Systems Review Of Systems: See Below <Javy Leo - Last Filed: 03/14/20 00:43> - Physical Exam Exam: See Below <Javy Leo - Last Filed: 03/14/20 00:43> EKG INTERPRETATION <Ru Garg - Last Filed: 03/13/20 19:09> <Javy Leo - Last Filed: 03/14/20 00:43> EKG Interpretation Comments: 12 lead EKG interpretation Obtained: March 13, 2020 at 6:14 PM Rhythm: Sinus Rate: 84 [place]: Normal Intervals: Prolonged QT interval at [address]/T Segments: No acute ischemic changes Interpretation: Sinus Rhythm (Ru Garg) Course <Ru Garg - Last Filed: 03/13/20 19:09> <Javy Leo - Last Filed: 03/14/20 00:43> - Vital Signs Text/Narrative:: I assumed care of this patient at [address] Ru Garg. Patient had a episode of shakiness and then a witnessed seizure for EMS. No to be hypoglycemic to 25 mg/dL. Received 1 ampoule of dextrose 50%. Given cefepime and vancomycin here. CBC reassuring. Lactate elevated at 4.1. Metabolic panel shows mild hyponatremia, creatinine 1.6, hypomagnesemia at 1.5, alkaline phosphatase elevated 362. Troponin negative. I ordered 1 L lactated Ringer's, we are awaiting a twelve-lead EKG. Plan for admission. At 8 PM, I discussed with the patient plan for admission and sepsis bundle treatment. We discussed the risks and benefits of the 30 mL/kg sepsis bolus and the patient refuses the fluid bolus at this time. I reevaluated the patient independently. She feels tired but has no other complaints and denies any recent illness, fever, or infectious symptoms. After 1 L of crystalloid, her lactate improved from 4.1 to 0.5. I suspect that the initial lactate elevation was due to a generalized seizure and less likely from sepsis. She did have recurrent hypoglycemia with a blood glucose of 37. We gave another ampule of dextrose 50% and started a dextrose 10% infusion. We also fed her a meal tray. I have a low suspicion for sepsis at this point but I am concerned about her recurrent hypoglycemia. I asked her if she took her insulin and forgot to eat, but she could not remember. Regardless, with recurrent hypoglycemia, she will need to be admitted the hospital overnight for serial blood glucose measurements and to allow her cultures to result. I spoke with the accepting hospitalist Dr. Cuauhtemoc Mohamud who agrees to admit to observation status. (Javy Leo) Last Recorded V/S: Last Vital Signs Temp 36.1 C 03/13/20 21:59 Pulse 85 03/13/20 21:59 Resp 18 03/13/20 21:59 BP 163/70 H 03/13/20 22:29 Pulse Ox 95 03/13/20 21:59 - Orders/Labs/Meds Orders: Active Orders 24 hr Category Date Time Status EKG 12 Lead [EKG Documentation Completion] [RC] STAT Care 03/13/20 18:10 Active CULTURE BLOOD [BC] Stat Lab 03/13/20 18:25 Received CULTURE BLOOD [BC] Stat Lab 03/13/20 18:33 Results Blood Culture x2 Reflex Set [OM.PC] Stat Oth 03/13/20 18:10 Ordered Medication Orders Amlodipine Besylate (Norvasc) 10 mg PO BEDTIME [facility] Carvedilol (Coreg) 6.25 mg PO BID [facility] Cholecalciferol (Vitamin D3) 50 mcg PO DAILY [facility] Dextrose/Water (Dextrose 10% In Water) 500 mls @ 37.5 mls/hr IV ASDIRECTED [facility] Last Admin: 03/13/20 22:53 Dose: 37.5 mls/hr Ondansetron HCl (Zofran) 4 mg PO TID PRN PRN Reason: Nausea Pantoprazole Sodium (Protonix) 40 mg PO DAILY [facility] Sertraline HCl (Zoloft) 50 mg PO DAILY [facility] Labs: Laboratory Tests 03/13/20 03/13/20 03/13/20 Range/Units 18:10 18:10 18:10 WBC 7.42 (4.0-11.0) K/uL RBC 4.10 L (4.30-5.90) M/uL Hgb 12.4 (12.0-16.0) g/dL Hct 38.3 (36.0-46.0) % MCV 93.4 (80.0-98.0) fL MCH 30.2 (27.0-32.0) pg MCHC 32.4 (31.0-37.0) g/dL RDW Std Deviation 56.0 (28.0-62.0) fl RDW Coeff of Nicolasa 16 H (11.0-15.0) % Plt Count 405 H (150-400) K/uL MPV 9.10 (7.40-12.00) fL Neut % (Auto) 59.3 (48.0-80.0) % Lymph % (Auto) 24.7 (16.0-40.0) % [place] % (Auto) 10.9 (0.0-15.0) % Eos % (Auto) 3.6 (0.0-7.0) % Baso % (Auto) 1.5 (0.0-1.5) % Neut # (Auto) 4.4 (1.4-5.7) K/uL Lymph # (Auto) 1.8 (0.6-2.4) K/uL [place] # (Auto) 0.8 (0.0-0.8) K/uL Eos # (Auto) 0.3 (0.0-0.7) K/uL Baso # (Auto) 0.1 (0.0-0.1) K/uL Nucleated RBC % 0.0 /100WBC Nucleated RBCs # 0 K/uL Lactate 4.1 H* (0.20-2.00) mmol/L Sodium 134 L (136-145) mmol/L Potassium 3.5 (3.5-5.1) mmol/L Chloride 99 (98-107) mmol/L Carbon Dioxide 24.1 (21.0-32.0) mmol/L BUN 10 (7.0-18.0) mg/dL Creatinine 1.6 H (0.6-1.0) mg/dL Est Cr Clr Drug Dosing 28.48 mL/min Estimated GFR (MDRD) 32.2 ml/min Glucose 178 H (74-106) mg/dL Calcium 7.5 L (8.5-10.1) mg/dL Magnesium 1.5 L (1.8-2.4) mg/dL Total Bilirubin 0.2 (0.2-1.0) mg/dL AST 32 (15-37) IU/L ALT 29 (14-63) IU/L Alkaline Phosphatase 362 H (46-116) U/L Troponin I < 0.050 (0.000-0.056) ng/mL Total Protein 6.4 (6.4-8.2) g/dL Albumin 2.1 L (3.4-5.0) g/dL Globulin 4.3 H (2.6-4.0) g/dL Albumin/Globulin Ratio 0.5 L (0.9-1.6) Meds: Medications Generic Name Dose Route Start Last Admin Trade Name Freq PRN Reason Stop Dose Admin Amlodipine Besylate 10 mg 03/14/20 21:00 Norvasc PO BEDTIME RA Carvedilol 6.25 mg 03/14/20 09:00 Coreg PO BID RA Cholecalciferol 50 mcg 03/14/20 09:00 Vitamin D3 PO DAILY RA Dextrose/Water 500 mls @ 37.5 mls/hr 03/13/20 22:31 03/13/20 22:53 Dextrose 10% In Water IV 37.5 mls/hr ASDIRECTED RA Administration Ondansetron HCl 4 mg 03/13/20 23:09 Zofran PO TID PRN Nausea Pantoprazole Sodium 40 mg 03/14/20 09:00 Protonix PO DAILY RA Sertraline HCl 50 mg 03/14/20 09:00 Zoloft PO DAILY RA Discontinued Medications Generic Name Dose Route Start Last Admin Trade Name Freq PRN Reason Stop Dose Admin Dextrose/Water 50 ml 03/13/20 20:55 03/13/20 21:04 Dextrose 50% In Water IVPUSH 03/13/20 20:56 50 ml ONETIME ONE Administration Dextrose/Water Confirm 03/13/20 20:55 03/13/20 21:17 Dextrose 50% In Water Administered 03/13/20 20:56 Not Given Dose 50 ml .ROUTE .STK-MED ONE Cefepime HCl 2 gm/ Premix 50 mls @ 100 mls/hr 03/13/20 18:11 03/13/20 19:12 IV 03/13/20 18:40 100 mls/hr ONETIME ONE Administration Sodium Chloride Confirm 03/13/20 19:03 03/13/20 19:27 Normal Saline (Advbag) Administered 03/13/20 19:04 166 mls/hr Dose Administration 250 mls @ as directed .ROUTE .STK-MED ONE Lactated Ringer's 1,000 mls @ 1,000 mls/hr 03/13/20 19:10 03/13/20 19:19 Ringers, Lactated IV 03/13/20 20:09 1,000 mls/hr .BOLUS ONE Administration Sodium Chloride Confirm 03/13/20 19:21 03/13/20 21:16 Normal Saline (Advbag) Administered 03/13/20 19:22 Not Given Dose 250 mls @ as directed .ROUTE .STK-MED ONE Magnesium Sulfate 2 gm/ Premix 50 mls @ 50 mls/hr 03/13/20 20:06 03/13/20 21: 03 IV 03/13/20 21:05 50 mls/hr ONETIME ONE Administration Dextrose/Water 1,000 mls @ 75 mls/hr 03/13/20 21:00 Dextrose 10% In Water IV ASDIRECTED RA Vancomycin HCl Confirm 03/13/20 19:02 03/13/20 19:26 Vancocin Administered 03/13/20 19:03 1 gm Dose Administration 1 gm .ROUTE .STK-MED ONE Vancomycin HCl Confirm 03/13/20 19:21 03/13/20 21:16 Vancocin Administered 03/13/20 19:22 Not Given Dose 1 gm .ROUTE .STK-MED ONE Departure <Ru Garg - Last Filed: 03/13/20 19:09> - Departure Time of Disposition: 19:00 <Javy Leo - Last Filed: 03/14/20 00:43> - Departure Disposition: Admitted As Inpatient 64 Clinical Impression: Hypoglycemia associated with diabetes, Seizure Sepsis Event Note - Focused Exam Date Exam was Performed: 03/13/20 Time Exam was Performed: 19:09 <Ru Garg - Last Filed: 03/13/20 19:09> - Focused Exam Date Exam was Performed: 03/14/20 Time Exam was Performed: 00:43 <Javy Leo - Last Filed: 03/14/20 00:43> - Focused Exam Vital Signs: Vital Signs Temp Pulse Resp BP Pulse Ox 03/13/20 19:30 87 18 166/83 H 94 L 03/13/20 19:06 87 176/88 H 97 03/13/20 18:19 36.5 C 78 16 184/88 H 97
[2020-03-13 18:56] LABS: BLOOD UREA NITROGEN,BUN 10 mg/dL (7.0-18.0); CARBON DIOXIDE,CO2 24.1 mmol/L (21.0-32.0); CHLORIDE,CL 99 mmol/L (98-107); GLUCOSE RANDOM 178 mg/dL (74-106); POTASSIUM,K 3.5 mmol/L (3.5-5.1); SODIUM,NA 134 mmol/L (136-145)
[2020-03-13] MEDS ORDERED: Vancomycin 1 GM AdvVial ONE ×2 (19:02→19:21)
[2020-03-13] MEDS ORDERED: Sodium Chloride 0.9% 250 ML ONE ×2 (19:03→19:21)
[2020-03-13] MEDS ORDERED: Lactated Ringers 1,000 ML IV ONE (19:10)
--- NOTE | 2020-03-13 19:16 | CR ---
INDICATION: High blood sugar TECHNIQUE: Chest radiograph 1 view COMPARISON: None FINDINGS: Mediastinum: Right IJ dialysis catheter is present with the tips in the right atrium. Mild to moderate calcifications of the mitral valve annulus are present. This can be associated with coronary artery disease. Lung: Mild bibasilar atelectasis and small right pleural effusion noted. No pneumothorax is identified. Bone and Soft tissue: Unremarkable for age. IMPRESSION: 1. Mild bibasilar atelectasis and small right pleural effusion noted. Dictated by Robb Leach MD @ 03/13/2020 7:14:02 PM Dictated by: Robb Leach MD @ 03/13/2020 19:14:06 (Electronically Signed)
[2020-03-13] MEDS ORDERED: Magnesium Sulfate/Water 2 GM in Premix Bag 1 BAG IV ONE (20:06)
[2020-03-13] MEDS ORDERED: 50% Dextrose in Water 50 ML Syringe IVPUSH ONE (20:55)
[2020-03-13] MEDS ORDERED: 50% Dextrose in Water 50 ML Syringe ONE (20:55)
[2020-03-13] MEDS ORDERED: Dextrose 10% in Water 1,000 ML IV SCH (21:00)
[2020-03-13] MEDS ORDERED: Dextrose 10% in Water 500 ML IV SCH (22:31)
[2020-03-13] MEDS ORDERED: Ondansetron 4 MG Tab PO PRN (23:09)
--- NOTE | 2020-03-13 23:32 | PCM.HP.2 ---
H&P History of Present Illness - General Date of Service: 03/13/20 Admit Problem/Dx: Admission Diagnosis/Problem Admission Diagnosis/Problem Seizure - History of Present Illness Initial Comments - Free Text/Narative: 64 yo female with pmh of ESRD with dialysis on MWF, She is insulin dependent diabetic and takes 20 units of lantus in the morning. She presented to the ED after having a seizure at home. EMS found her to be hypoglycemic in the 20s and gave dextrose IV. She did become more alert. She was given an amp of D50 in the ED with improvement in her blood glucose but it did drop again into the 30s and she was started on a D10 drip. She states she does not remember eating today. She took her lantus this morning but states she did not take an corrective insulin. - Related Data Allergies/Adverse Reactions: Allergies Allergy/AdvReac Type Severity Reaction Status Date / Time No Known Allergies Allergy Verified 03/13/20 22:01 Home Medications: Home Meds amLODIPine Besylate [Amlodipine Besylate] 10 mg PO BEDTIME 12/24/17 [History] Insulin Lispro [Humalog] 1 unit SQ .PER SLIDING SCALE 05/09/18 [History] Insulin Glarg,Human.Rec.Analog [Lantus] 12 units SQ QAM 01/14/20 [History] Magnesium 400 mg PO DAILY 01/14/20 [History] Pantoprazole [ProTONIX] 40 mg PO DAILY 01/14/20 [History] Sertraline [Zoloft] 50 mg PO DAILY 01/14/20 [History] Cholecalciferol (Vitamin D3) [D3-2000] 50 mcg PO DAILY 03/13/20 [History] Ondansetron [Zofran] 4 mg PO TID PRN 03/13/20 [History] carvediloL [Carvedilol] 6.25 mg PO BID 03/13/20 [History] Past Medical History - Past Health History Medical/Surgical History: Denies Medical/Surgical History HEENT History: Reports: Impaired Vision Other HEENT History: wears eye glasses Cardiovascular History: Reports: Hypertension Respiratory History: Reports: SOB Other Respiratory History: Desaturations since dialysis. 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 Musculoskeletal History: Reports: Arthritis Neurological History: Reports: Headaches, Chronic, Migraines, Vertigo Psychiatric History: Reports: Anxiety, Depression Endocrine/Metabolic History: Reports: Diabetes, Type I Other Endocrine/Metabolic History: Diagnosed X 20 years ago Hematologic History: Reports: None Immunologic History: Reports: None Oncologic (Cancer) History: Reports: None Dermatologic History: Reports: None - Infectious Disease History Infectious Disease History: Reports: Hepatitis C - Past Surgical History Head Surgeries/Procedures: Reports: None HEENT Surgical History: Reports: None Cardiovascular Surgical History: Reports: None GI Surgical History: Reports: None Female Surgical History: Reports: Hysterectomy Other Female Surgeries/Procedures: Kidney Disease Endocrine Surgical History: Reports: None Neurological Surgical History: Reports: None Musculoskeletal Surgical History: Reports: None Social & Family History - Family History Family Medical History: Noncontributory - Tobacco Use Smoking Status *Q: Former Smoker Years of Tobacco use: 40 Packs/Tins Daily: 1 Used Tobacco, but Quit: Yes Month/Year Tobacco Last Used: 2016 - Caffeine Use Caffeine Use: Reports: Coffee, Tea - Recreational Drug Use Recreational Drug Use: No - Living Situation & Occupation Living situation: Reports: Alone H&P Review of Systems - Review of Systems: Review Of Systems: Comprehensive ROS is negative, except as noted in HPI. Exam - Exam Exam: See Below - Vital Signs Vital Signs: Last Vital Signs Temp 36.1 C 03/13/20 21:59 Pulse 85 03/13/20 21:59 Resp 18 03/13/20 21:59 BP 163/70 H 03/13/20 22:29 Pulse Ox 95 03/13/20 21:59 Weight: 50.712 kg - Exam General: Oriented. No: Severe Distress Lungs: Clear to Auscultation, Normal Respiratory Effort Cardiovascular: Regular Rate, Regular Rhythm GI/Abdominal Exam: Normal Bowel Sounds, Soft, Non-Tender Extremities: Non-Tender, No Pedal Edema Skin: Warm, Dry, Intact Neurological: No: Focal Deficit - Patient Data Lab Results Last 24 hrs: Laboratory Results - last 24 hr 03/13/20 03/13/20 03/13/20 Range/Units 18:10 18:10 18:10 WBC 7.42 (4.0-11.0) K/uL RBC 4.10 L (4.30-5.90) M/uL Hgb 12.4 (12.0-16.0) g/dL Hct 38.3 (36.0-46.0) % MCV 93.4 (80.0-98.0) fL MCH 30.2 (27.0-32.0) pg MCHC 32.4 (31.0-37.0) g/dL RDW Std Deviation 56.0 (28.0-62.0) fl RDW Coeff of Nicolasa 16 H (11.0-15.0) % Plt Count 405 H (150-400) K/uL MPV 9.10 (7.40-12.00) fL Neut % (Auto) 59.3 (48.0-80.0) % Lymph % (Auto) 24.7 (16.0-40.0) % [place] % (Auto) 10.9 (0.0-15.0) % Eos % (Auto) 3.6 (0.0-7.0) % Baso % (Auto) 1.5 (0.0-1.5) % Neut # (Auto) 4.4 (1.4-5.7) K/uL Lymph # (Auto) 1.8 (0.6-2.4) K/uL [place] # (Auto) 0.8 (0.0-0.8) K/uL Eos # (Auto) 0.3 (0.0-0.7) K/uL Baso # (Auto) 0.1 (0.0-0.1) K/uL Nucleated RBC % 0.0 /100WBC Nucleated RBCs # 0 K/uL Lactate 4.1 H* (0.20-2.00) mmol/L Sodium 134 L (136-145) mmol/L Potassium 3.5 (3.5-5.1) mmol/L Chloride 99 (98-107) mmol/L Carbon Dioxide 24.1 (21.0-32.0) mmol/L BUN 10 (7.0-18.0) mg/dL Creatinine 1.6 H (0.6-1.0) mg/dL Est Cr Clr Drug Dosing 28.48 mL/min Estimated GFR (MDRD) 32.2 ml/min Glucose 178 H (74-106) mg/dL POC Glucose (60-110) mg/dL Calcium 7.5 L (8.5-10.1) mg/dL Magnesium 1.5 L (1.8-2.4) mg/dL Total Bilirubin 0.2 (0.2-1.0) mg/dL AST 32 (15-37) IU/L ALT 29 (14-63) IU/L Alkaline Phosphatase 362 H (46-116) U/L Troponin I < 0.050 (0.000-0.056) ng/mL Total Protein 6.4 (6.4-8.2) g/dL Albumin 2.1 L (3.4-5.0) g/dL Globulin 4.3 H (2.6-4.0) g/dL Albumin/Globulin Ratio 0.5 L (0.9-1.6) 03/13/20 03/13/20 03/13/20 Range/Units 20:40 20:55 21:52 WBC (4.0-11.0) K/uL RBC (4.30-5.90) M/uL Hgb (12.0-16.0) g/dL Hct (36.0-46.0) % MCV (80.0-98.0) fL MCH (27.0-32.0) pg MCHC (31.0-37.0) g/dL RDW Std Deviation (28.0-62.0) fl RDW Coeff of Nicolasa (11.0-15.0) % Plt Count (150-400) K/uL MPV (7.40-12.00) fL Neut % (Auto) (48.0-80.0) % Lymph % (Auto) (16.0-40.0) % [place] % (Auto) (0.0-15.0) % Eos % (Auto) (0.0-7.0) % Baso % (Auto) (0.0-1.5) % Neut # (Auto) (1.4-5.7) K/uL Lymph # (Auto) (0.6-2.4) K/uL [place] # (Auto) (0.0-0.8) K/uL Eos # (Auto) (0.0-0.7) K/uL Baso # (Auto) (0.0-0.1) K/uL Nucleated RBC % /100WBC Nucleated RBCs # K/uL Lactate 0.5 (0.20-2.00) mmol/L Sodium (136-145) mmol/L Potassium (3.5-5.1) mmol/L Chloride (98-107) mmol/L Carbon Dioxide (21.0-32.0) mmol/L BUN (7.0-18.0) mg/dL Creatinine (0.6-1.0) mg/dL Est Cr Clr Drug Dosing mL/min Estimated GFR (MDRD) ml/min Glucose (74-106) mg/dL POC Glucose 37 L 142 H (60-110) mg/dL Calcium (8.5-10.1) mg/dL Magnesium (1.8-2.4) mg/dL Total Bilirubin (0.2-1.0) mg/dL AST (15-37) IU/L ALT (14-63) IU/L Alkaline Phosphatase (46-116) U/L Troponin I (0.000-0.056) ng/mL Total Protein (6.4-8.2) g/dL Albumin (3.4-5.0) g/dL Globulin (2.6-4.0) g/dL Albumin/Globulin Ratio (0.9-1.6) Result Diagrams: 03/14/20 06:08 03/14/20 06:08 [place] Results Last 24 hrs: Microbiology 03/13/20 18:33 Anaerobic Blood Culture - Final Blood - Venous - Lab Draw Sepsis Event Note - Evaluation Sepsis Screening Result: No Definite Risk - Focused Exam Vital Signs: Vital Signs Temp Pulse Resp BP Pulse Ox 03/13/20 22:29 163/70 H 03/13/20 21:59 36.1 C 85 18 163/101 H 95 03/13/20 21:00 74 192/64 H 03/13/20 19:30 87 18 166/83 H 94 L 03/13/20 19:06 87 176/88 H 97 03/13/20 18:19 36.5 C 78 16 184/88 H 97 Date Exam was Performed: 03/15/20 Time Exam was Performed: 19:19 Problem List Initiated/Reviewed/Updated: Yes Orders Last 24hrs: Active Orders 24 hr Category Date Time Status Patient Status [ADT] Stat ADT 03/13/20 20:32 Active Accu Check [Blood Glucose Check, Bedside] [] Q3HR Care 03/13/20 23:50 Active EKG 12 Lead [EKG Documentation Completion] [RC] STAT Care 03/13/20 18:10 Active CULTURE BLOOD [BC] Stat Lab 03/13/20 18:25 Received CULTURE BLOOD [BC] Stat Lab 03/13/20 18:33 Results Cholecalciferol (Vitamin D3) [D3] Med 03/14/20 09:00 Ordered 50 mcg PO DAILY Dextrose 10% in Water 500 ml Med 03/13/20 22:31 Active IV ASDIRECTED Ondansetron [Zofran] Med 03/13/20 23:09 Ordered 4 mg PO TID PRN Pantoprazole [ProTONIX] Med 03/14/20 09:00 Ordered 40 mg PO DAILY Sertraline [Zoloft] Med 03/14/20 09:00 Ordered 50 mg PO DAILY amLODIPine Med 03/14/20 21:00 Ordered 10 mg PO BEDTIME carvediloL [Coreg] Med 03/14/20 09:00 Ordered 6.25 mg PO BID Blood Culture x2 Reflex Set [OM.PC] Stat Oth 03/13/20 18:10 Ordered Medication Orders Carvedilol (Coreg) 6.25 mg PO BID RA Dextrose/Water (Dextrose 10% In Water) 500 mls @ 37.5 mls/hr IV ASDIRECTED RA Last Admin: 03/13/20 22:53 Dose: 37.5 mls/hr Non-Formulary Medication (Amlodipine) 10 mg PO BEDTIME RA Non-Formulary Medication (Cholecalciferol (Vitamin D3) [D3]) 50 mcg PO DAILY RA Ondansetron HCl (Zofran) 4 mg PO TID PRN PRN Reason: Nausea Pantoprazole Sodium (Protonix) 40 mg PO DAILY RA Sertraline HCl (Zoloft) 50 mg PO DAILY RA Assessment/Plan Comment:: 64 yo female with pmh of ESRD and DM who is admitted for hypoglycemia. We will continue D10 drip tonight with frequent accuchecks. Patient's Lantus dose may be to high. Elevated lactic acid has resolved and is likely due to seizures and hypglycemic episode.
[2020-03-14 06:32] LABS: CARBON DIOXIDE,CO2 27.8 mmol/L (21.0-32.0); POTASSIUM,K 4.2 mmol/L (3.5-5.1)
[2020-03-14 06:42] LABS: HEMOGLOBIN A1C 9.8 % (4.5-6.2)
[2020-03-14] MEDS ORDERED: Carvedilol 6.25 MG Tab PO SCH (09:00)
[2020-03-14] MEDS ORDERED: Sertraline 50 MG Tab PO SCH (09:00)
[2020-03-14] MEDS ORDERED: Pantoprazole 40 MG Tab.CR PO SCH (09:00)
[2020-03-14] MEDS ORDERED: Cholecalciferol (Vitamin D3) 25 MCG Tab PO SCH (09:00)
--- NOTE | 2020-03-14 10:16 | PCM.DCSUM1 ---
<Mikaela Beatty - Last Filed: 03/14/20 12:02> Discharge Summary - Hospital Course Free Text/Narrative:: Discharge summary Admission diagnoses: Witnessed seizure Hypoglycemia w. uncontrolled DM ESRD on dialysis [facility] Discharge diagnoses: Consultations:none Procedures:none Hospital course: 64 yo female with pmh of ESRD with dialysis on MWF, She is insulin dependent diabetic and takes 20 units of lantus in the morning. She presented to the ED after having a seizure at home. EMS found her to be hypoglycemic in the 20s and gave dextrose IV. She did become more alert. She was given an amp of D50 in the ED with improvement in her blood glucose but it did drop again into the 30s and she was started on a D10 drip. She states she does not remember eating today. She took her lantus this morning but states she did not take an corrective insulin. pt otherwise stable during stay with no repeat seizuire activity. A1c elevated with concerns regarding medication non-compliance and or too high dose of her Lantus. Advised to temporarily reduce her long acting insulin to 12 units in AM ; and to adjust her short acting insulin with her meals. ADvised to maintain higher glucose as it seems her hypoglycemic episodes may have been the culprit regarding current seizure. pt .understood and was stable; requesting discharge. Will follow up eith her dialysis tomorrow as scheduled. Otherwise labs were stable. BP was elevated at 171/80 but pt. however will restart her home BP meds Discharge condition: Stable Disposition: Home Follow-up: PCP Dialysis - Discharge Data Discharge Date: 03/14/20 Discharge Disposition: Home, Self-Care 01 Condition: Fair - Referral to Home Health Primary Care Physician: Cabrera Machado MD - Discharge Plan Home Medications: Home Meds amLODIPine Besylate [Amlodipine Besylate] 10 mg PO BEDTIME 12/24/17 [History] Insulin Lispro [Humalog] 1 unit SQ .PER SLIDING SCALE 05/09/18 [History] Insulin Glarg,Human.Rec.Analog [Lantus] 12 units SQ QAM 01/14/20 [History] Magnesium 400 mg PO DAILY 01/14/20 [History] Pantoprazole [ProTONIX] 40 mg PO DAILY 01/14/20 [History] Sertraline [Zoloft] 50 mg PO DAILY 01/14/20 [History] Cholecalciferol (Vitamin D3) [D3-2000] 50 mcg PO DAILY 03/13/20 [History] Ondansetron [Zofran] 4 mg PO TID PRN 03/13/20 [History] carvediloL [Carvedilol] 6.25 mg PO BID 03/13/20 [History] Patient Handouts: Seizure, Adult, [id number], Hypoglycemia, [id number] Referrals: Cabrera Machado MD [Primary Care Provider] - Michael Ontiveros MD [Physician] - 03/25/20 2:30 pm - Discharge Summary/Plan Comment DC Time >30 min.: No - Patient Data Vitals - Most Recent: Last Vital Signs Temp 98.2 F 03/14/20 08:00 Pulse 85 03/14/20 08:23 Resp 18 03/14/20 08:00 BP 175/90 H 03/14/20 08:23 Pulse Ox 95 03/14/20 08:00 Weight - Most Recent: 50.712 kg I&O - Last 24 hours: Intake & Output 03/13/20 03/14/20 03/14/20 22:59 06:59 14:59 Intake Total 173 Output Total 0 Balance 173 Lab Results - Last 24 hrs: Laboratory Results - last 24 hr 03/13/20 03/13/20 03/13/20 Range/Units 18:10 18:10 18:10 WBC 7.42 (4.0-11.0) K/uL RBC 4.10 L (4.30-5.90) M/uL Hgb 12.4 (12.0-16.0) g/dL Hct 38.3 (36.0-46.0) % MCV 93.4 (80.0-98.0) fL MCH 30.2 (27.0-32.0) pg MCHC 32.4 (31.0-37.0) g/dL RDW Std Deviation 56.0 (28.0-62.0) fl RDW Coeff of Nicolasa 16 H (11.0-15.0) % Plt Count 405 H (150-400) K/uL MPV 9.10 (7.40-12.00) fL Neut % (Auto) 59.3 (48.0-80.0) % Lymph % (Auto) 24.7 (16.0-40.0) % [place] % (Auto) 10.9 (0.0-15.0) % Eos % (Auto) 3.6 (0.0-7.0) % Baso % (Auto) 1.5 (0.0-1.5) % Neut # (Auto) 4.4 (1.4-5.7) K/uL Lymph # (Auto) 1.8 (0.6-2.4) K/uL [place] # (Auto) 0.8 (0.0-0.8) K/uL Eos # (Auto) 0.3 (0.0-0.7) K/uL Baso # (Auto) 0.1 (0.0-0.1) K/uL Nucleated RBC % 0.0 /100WBC Nucleated RBCs # 0 K/uL Lactate 4.1 H* (0.20-2.00) mmol/L Sodium 134 L (136-145) mmol/L Potassium 3.5 (3.5-5.1) mmol/L Chloride 99 (98-107) mmol/L Carbon Dioxide 24.1 (21.0-32.0) mmol/L BUN 10 (7.0-18.0) mg/dL Creatinine 1.6 H (0.6-1.0) mg/dL Est Cr Clr Drug Dosing 28.48 mL/min Estimated GFR (MDRD) 32.2 ml/min Glucose 178 H (74-106) mg/dL POC Glucose (60-110) mg/dL Hemoglobin A1c (4.5-6.2) % Calcium 7.5 L (8.5-10.1) mg/dL Magnesium 1.5 L (1.8-2.4) mg/dL Total Bilirubin 0.2 (0.2-1.0) mg/dL AST 32 (15-37) IU/L ALT 29 (14-63) IU/L Alkaline Phosphatase 362 H (46-116) U/L Troponin I < 0.050 (0.000-0.056) ng/mL Total Protein 6.4 (6.4-8.2) g/dL Albumin 2.1 L (3.4-5.0) g/dL Globulin 4.3 H (2.6-4.0) g/dL Albumin/Globulin Ratio 0.5 L (0.9-1.6) 03/13/20 03/13/20 03/13/20 Range/Units 20:40 20:55 21:52 WBC (4.0-11.0) K/uL RBC (4.30-5.90) M/uL Hgb (12.0-16.0) g/dL Hct (36.0-46.0) % MCV (80.0-98.0) fL MCH (27.0-32.0) pg MCHC (31.0-37.0) g/dL RDW Std Deviation (28.0-62.0) fl RDW Coeff of Nicolasa (11.0-15.0) % Plt Count (150-400) K/uL MPV (7.40-12.00) fL Neut % (Auto) (48.0-80.0) % Lymph % (Auto) (16.0-40.0) % [place] % (Auto) (0.0-15.0) % Eos % (Auto) (0.0-7.0) % Baso % (Auto) (0.0-1.5) % Neut # (Auto) (1.4-5.7) K/uL Lymph # (Auto) (0.6-2.4) K/uL [place] # (Auto) (0.0-0.8) K/uL Eos # (Auto) (0.0-0.7) K/uL Baso # (Auto) (0.0-0.1) K/uL Nucleated RBC % /100WBC Nucleated RBCs # K/uL Lactate 0.5 (0.20-2.00) mmol/L Sodium (136-145) mmol/L Potassium (3.5-5.1) mmol/L Chloride (98-107) mmol/L Carbon Dioxide (21.0-32.0) mmol/L BUN (7.0-18.0) mg/dL Creatinine (0.6-1.0) mg/dL Est Cr Clr Drug Dosing mL/min Estimated GFR (MDRD) ml/min Glucose (74-106) mg/dL POC Glucose 37 L 142 H (60-110) mg/dL Hemoglobin A1c (4.5-6.2) % Calcium (8.5-10.1) mg/dL Magnesium (1.8-2.4) mg/dL Total Bilirubin (0.2-1.0) mg/dL AST (15-37) IU/L ALT (14-63) IU/L Alkaline Phosphatase (46-116) U/L Troponin I (0.000-0.056) ng/mL Total Protein (6.4-8.2) g/dL Albumin (3.4-5.0) g/dL Globulin (2.6-4.0) g/dL Albumin/Globulin Ratio (0.9-1.6) 03/14/20 03/14/20 03/14/20 Range/Units 00:14 02:58 06:06 WBC (4.0-11.0) K/uL RBC (4.30-5.90) M/uL Hgb (12.0-16.0) g/dL Hct (36.0-46.0) % MCV (80.0-98.0) fL MCH (27.0-32.0) pg MCHC (31.0-37.0) g/dL RDW Std Deviation (28.0-62.0) fl RDW Coeff of Nicolasa (11.0-15.0) % Plt Count (150-400) K/uL MPV (7.40-12.00) fL Neut % (Auto) (48.0-80.0) % Lymph % (Auto) (16.0-40.0) % [place] % (Auto) (0.0-15.0) % Eos % (Auto) (0.0-7.0) % Baso % (Auto) (0.0-1.5) % Neut # (Auto) (1.4-5.7) K/uL Lymph # (Auto) (0.6-2.4) K/uL [place] # (Auto) (0.0-0.8) K/uL Eos # (Auto) (0.0-0.7) K/uL Baso # (Auto) (0.0-0.1) K/uL Nucleated RBC % /100WBC Nucleated RBCs # K/uL Lactate (0.20-2.00) mmol/L Sodium (136-145) mmol/L Potassium (3.5-5.1) mmol/L Chloride (98-107) mmol/L Carbon Dioxide (21.0-32.0) mmol/L BUN (7.0-18.0) mg/dL Creatinine (0.6-1.0) mg/dL Est Cr Clr Drug Dosing mL/min Estimated GFR (MDRD) ml/min Glucose (74-106) mg/dL POC Glucose 227 H 214 H 151 H (60-110) mg/dL Hemoglobin A1c (4.5-6.2) % Calcium (8.5-10.1) mg/dL Magnesium (1.8-2.4) mg/dL Total Bilirubin (0.2-1.0) mg/dL AST (15-37) IU/L ALT (14-63) IU/L Alkaline Phosphatase (46-116) U/L Troponin I (0.000-0.056) ng/mL Total Protein (6.4-8.2) g/dL Albumin (3.4-5.0) g/dL Globulin (2.6-4.0) g/dL Albumin/Globulin Ratio (0.9-1.6) 03/14/20 03/14/20 03/14/20 Range/Units 06:08 06:08 06:08 WBC 8.46 (4.0-11.0) K/uL RBC 3.90 L (4.30-5.90) M/uL Hgb 11.5 L (12.0-16.0) g/dL Hct 36.4 (36.0-46.0) % MCV 93.3 (80.0-98.0) fL MCH 29.5 (27.0-32.0) pg MCHC 31.6 (31.0-37.0) g/dL RDW Std Deviation 55.8 (28.0-62.0) fl RDW Coeff of Nicolasa 16 H (11.0-15.0) % Plt Count 373 (150-400) K/uL MPV 9.00 (7.40-12.00) fL Neut % (Auto) 64.4 (48.0-80.0) % Lymph % (Auto) 20.4 (16.0-40.0) % [place] % (Auto) 11.9 (0.0-15.0) % Eos % (Auto) 2.2 (0.0-7.0) % Baso % (Auto) 1.1 (0.0-1.5) % Neut # (Auto) 5.4 (1.4-5.7) K/uL Lymph # (Auto) 1.7 (0.6-2.4) K/uL [place] # (Auto) 1.0 H (0.0-0.8) K/uL Eos # (Auto) 0.2 (0.0-0.7) K/uL Baso # (Auto) 0.1 (0.0-0.1) K/uL Nucleated RBC % 0.0 /100WBC Nucleated RBCs # 0 K/uL Lactate (0.20-2.00) mmol/L Sodium 134 L (136-145) mmol/L Potassium 4.2 (3.5-5.1) mmol/L Chloride 101 (98-107) mmol/L Carbon Dioxide 27.8 (21.0-32.0) mmol/L BUN 18 (7.0-18.0) mg/dL Creatinine 2.1 H (0.6-1.0) mg/dL Est Cr Clr Drug Dosing 21.10 mL/min Estimated GFR (MDRD) 23.6 ml/min Glucose 166 H (74-106) mg/dL POC Glucose (60-110) mg/dL Hemoglobin A1c 9.8 H (4.5-6.2) % Calcium 7.7 L (8.5-10.1) mg/dL Magnesium (1.8-2.4) mg/dL Total Bilirubin (0.2-1.0) mg/dL AST (15-37) IU/L ALT (14-63) IU/L Alkaline Phosphatase (46-116) U/L Troponin I (0.000-0.056) ng/mL Total Protein (6.4-8.2) g/dL Albumin (3.4-5.0) g/dL Globulin (2.6-4.0) g/dL Albumin/Globulin Ratio (0.9-1.6) 03/14/20 Range/Units 08:53 WBC (4.0-11.0) K/uL RBC (4.30-5.90) M/uL Hgb (12.0-16.0) g/dL Hct (36.0-46.0) % MCV (80.0-98.0) fL MCH (27.0-32.0) pg MCHC (31.0-37.0) g/dL RDW Std Deviation (28.0-62.0) fl RDW Coeff of Nicolasa (11.0-15.0) % Plt Count (150-400) K/uL MPV (7.40-12.00) fL Neut % (Auto) (48.0-80.0) % Lymph % (Auto) (16.0-40.0) % [place] % (Auto) (0.0-15.0) % Eos % (Auto) (0.0-7.0) % Baso % (Auto) (0.0-1.5) % Neut # (Auto) (1.4-5.7) K/uL Lymph # (Auto) (0.6-2.4) K/uL [place] # (Auto) (0.0-0.8) K/uL Eos # (Auto) (0.0-0.7) K/uL Baso # (Auto) (0.0-0.1) K/uL Nucleated RBC % /100WBC Nucleated RBCs # K/uL Lactate (0.20-2.00) mmol/L Sodium (136-145) mmol/L Potassium (3.5-5.1) mmol/L Chloride (98-107) mmol/L Carbon Dioxide (21.0-32.0) mmol/L BUN (7.0-18.0) mg/dL Creatinine (0.6-1.0) mg/dL Est Cr Clr Drug Dosing mL/min Estimated GFR (MDRD) ml/min Glucose (74-106) mg/dL POC Glucose 102 (60-110) mg/dL Hemoglobin A1c (4.5-6.2) % Calcium (8.5-10.1) mg/dL Magnesium (1.8-2.4) mg/dL Total Bilirubin (0.2-1.0) mg/dL AST (15-37) IU/L ALT (14-63) IU/L Alkaline Phosphatase (46-116) U/L Troponin I (0.000-0.056) ng/mL Total Protein (6.4-8.2) g/dL Albumin (3.4-5.0) g/dL Globulin (2.6-4.0) g/dL Albumin/Globulin Ratio (0.9-1.6) NAKITA Results - Last 24 hrs: Microbiology 03/13/20 18:33 Anaerobic Blood Culture - Final Blood - Venous - Lab Draw Med Orders - Current: Current Medications Amlodipine Besylate (Norvasc) 10 mg PO BEDTIME [facility] Carvedilol (Coreg) 6.25 mg PO BID [facility] Last Admin: 03/14/20 08:23 Dose: 6.25 mg Cholecalciferol (Vitamin D3) 50 mcg PO DAILY [facility] Last Admin: 03/14/20 08:24 Dose: 50 mcg Dextrose/Water (Dextrose 10% In Water) 500 mls @ 37.5 mls/hr IV ASDIRECTED [facility] Last Admin: 03/13/20 22:53 Dose: 37.5 mls/hr Ondansetron HCl (Zofran) 4 mg PO TID PRN PRN Reason: Nausea Pantoprazole Sodium (Protonix) 40 mg PO DAILY [facility] Last Admin: 03/14/20 08:23 Dose: 40 mg Sertraline HCl (Zoloft) 50 mg PO DAILY [facility] Last Admin: 03/14/20 08:23 Dose: 50 mg Discontinued Medications Dextrose/Water (Dextrose 50% In Water) 50 ml IVPUSH ONETIME ONE Stop: 03/13/20 20:56 Last Admin: 03/13/20 21:04 Dose: 50 ml Dextrose/Water (Dextrose 50% In Water) Confirm Administered Dose 50 ml .ROUTE .STK-MED ONE Stop: 03/13/20 20:56 Last Admin: 03/13/20 21:17 Dose: Not Given Cefepime HCl 2 gm/ Premix 50 mls @ 100 mls/hr IV ONETIME ONE Stop: 03/13/20 18:40 Last Admin: 03/13/20 19:12 Dose: 100 mls/hr Sodium Chloride (Normal Saline (Advbag)) Confirm Administered Dose 250 mls @ as directed .ROUTE .STK-MED ONE Stop: 03/13/20 19:04 Last Admin: 03/13/20 19:27 Dose: 166 mls/hr Lactated Ringer's (Ringers, Lactated) 1,000 mls @ 1,000 mls/hr IV .BOLUS ONE Stop: 03/13/20 20:09 Last Admin: 03/13/20 19:19 Dose: 1,000 mls/hr Sodium Chloride (Normal Saline (Advbag)) Confirm Administered Dose 250 mls @ as directed .ROUTE .STK-MED ONE Stop: 03/13/20 19:22 Last Admin: 03/13/20 21:16 Dose: Not Given Magnesium Sulfate 2 gm/ Premix 50 mls @ 50 mls/hr IV ONETIME ONE Stop: 03/13/20 21:05 Last Admin: 03/13/20 21:03 Dose: 50 mls/hr Dextrose/Water (Dextrose 10% In Water) 1,000 mls @ 75 mls/hr IV ASDIRECTED [facility] Vancomycin HCl (Vancocin) Confirm Administered Dose 1 gm .ROUTE .STK-MED ONE Stop: 03/13/20 19:03 Last Admin: 03/13/20 19:26 Dose: 1 gm Vancomycin HCl (Vancocin) Confirm Administered Dose 1 gm .ROUTE .STK-MED ONE Stop: 03/13/20 19:22 Last Admin: 03/13/20 21:16 Dose: Not Given <Cuauhtemoc Mohamud - Last Filed: 03/15/20 19:12> Discharge Summary - Referral to Home Health Primary Care Physician: Cabrera Machado MD - Patient Data Vitals - Most Recent: Last Vital Signs Temp 35.7 C L 03/14/20 12:00 Pulse 82 03/14/20 12:00 Resp 16 03/14/20 12:00 BP 189/85 H 03/14/20 12:00 Pulse Ox 95 03/14/20 12:00 NAKITA Results - Last 24 hrs: Microbiology 03/13/20 18:33 Aerobic Blood Culture - Preliminary Blood - Venous - Lab Draw NO GROWTH AFTER 2 DAYS Anaerobic Blood Culture - Final 03/13/20 18:25 Aerobic Blood Culture - Preliminary Blood - Venous NO GROWTH AFTER 2 DAYS Anaerobic Blood Culture - Preliminary NO GROWTH AFTER 2 DAYS Med Orders - Current: Current Medications Discontinued Medications Amlodipine Besylate (Norvasc) 10 mg PO BEDTIME [facility] Carvedilol (Coreg) 6.25 mg PO BID [facility] Last Admin: 03/14/20 08:23 Dose: 6.25 mg Cholecalciferol (Vitamin D3) 50 mcg PO DAILY [facility] Last Admin: 03/14/20 08:24 Dose: 50 mcg Dextrose/Water (Dextrose 50% In Water) 50 ml IVPUSH ONETIME ONE Stop: 03/13/20 20:56 Last Admin: 03/13/20 21:04 Dose: 50 ml Dextrose/Water (Dextrose 50% In Water) Confirm Administered Dose 50 ml .ROUTE .STK-MED ONE Stop: 03/13/20 20:56 Last Admin: 03/13/20 21:17 Dose: Not Given Cefepime HCl 2 gm/ Premix 50 mls @ 100 mls/hr IV ONETIME ONE Stop: 03/13/20 18:40 Last Admin: 03/13/20 19:12 Dose: 100 mls/hr Sodium Chloride (Normal Saline (Advbag)) Confirm Administered Dose 250 mls @ as directed .ROUTE .[facility]-MED ONE Stop: 03/13/20 19:04 Last Admin: 03/13/20 19:27 Dose: 166 mls/hr Lactated Ringer's (Ringers, Lactated) 1,000 mls @ 1,000 mls/hr IV .BOLUS ONE Stop: 03/13/20 20:09 Last Admin: 03/13/20 19:19 Dose: 1,000 mls/hr Sodium Chloride (Normal Saline (Advbag)) Confirm Administered Dose 250 mls @ as directed .ROUTE .[facility]-MED ONE Stop: 03/13/20 19:22 Last Admin: 03/13/20 21:16 Dose: Not Given Magnesium Sulfate 2 gm/ Premix 50 mls @ 50 mls/hr IV ONETIME ONE Stop: 03/13/20 21:05 Last Admin: 03/13/20 21:03 Dose: 50 mls/hr Dextrose/Water (Dextrose 10% In Water) 1,000 mls @ 75 mls/hr IV ASDIRECTED [facility] Dextrose/Water (Dextrose 10% In Water) 500 mls @ 37.5 mls/hr IV ASDIRECTED [facility] Last Admin: 03/13/20 22:53 Dose: 37.5 mls/hr Ondansetron HCl (Zofran) 4 mg PO TID PRN PRN Reason: Nausea Pantoprazole Sodium (Protonix) 40 mg PO DAILY [facility] Last Admin: 03/14/20 08:23 Dose: 40 mg Sertraline HCl (Zoloft) 50 mg PO DAILY [facility] Last Admin: 03/14/20 08:23 Dose: 50 mg Vancomycin HCl (Vancocin) Confirm Administered Dose 1 gm .ROUTE .STK-MED ONE Stop: 03/13/20 19:03 Last Admin: 03/13/20 19:26 Dose: 1 gm Vancomycin HCl (Vancocin) Confirm Administered Dose 1 gm .ROUTE .STK-MED ONE Stop: 03/13/20 19:22 Last Admin: 03/13/20 21:16 Dose: Not Given - Free Text/Narrative Note: I have seen and evaluated the patient with the resident. I have discussed findings and treatment plan with resident. I agree with the assessment and plan as outlined in the following note.
[2020-03-14 12:25] VITALS: BP 189/85; PULSE 82
[2020-03-14] MEDS ORDERED: amLODIPine 5 MG Tab PO SCH (21:00)
== END 2020-03-14 12:10 | disposition home or self-care (01) ==
LOC: MW.ED 18:06 → MW.MS 20:32
PROVIDERS: ADMIT Internal Medicine; ATTEND Internal Medicine
DX: E10.649 Type 1 diabetes mellitus with hypoglycemia without coma (principal); F41.9 Anxiety disorder, unspecified; F32.9 Major depressive disorder, single episode, unspecified; E10.22 Type 1 diabetes mellitus with diabetic chronic kidney disease; I12.0 Hypertensive chronic kidney disease with stage 5 chronic kidney disease or end stage renal disease; N18.6 End stage renal disease; Z99.2 Dependence on renal dialysis; Z87.891 Personal history of nicotine dependence; Z91.14 Patient's other noncompliance with medication regimen; Z79.899 Other long term (current) drug therapy
CPT/HCPCS: 36415; 71045; 80048; 80053; 82962; 83036; 83605; 83735; 84484; 85025; 87040; 93005; A9270; J0692; J3370; J3475; J7050; J7120; 99283